=== PATIENT | female | born 1950 | race Caucasian/White ===

== ENCOUNTER 2023-11-15 22:06 | Outpatient (REF) | payer MEDICARE, SELFPAY | END 2023-11-15 22:07 | disposition home or self-care (01) | LOC: LBN 22:06 | PROVIDERS: Visit Provider Physician Assistant Medical | DX: J06.9 Acute upper respiratory infection, unspecified (principal) | CPT/HCPCS: 87070 ==

== ENCOUNTER 2024-01-17 09:21 | Outpatient (REF) | payer MEDICARE, SELFPAY ==
[2024-01-17 14:31] LABS: Abs Immature Grans 0.02 10^3/uL (0.0-0.06); Absolute Basophil Count 0.04 10^3/uL (0.0-0.2); Absolute Eosinophil Count 0.17 10^3/uL (0.0-0.7); Absolute Lymphocyte Count 1.87 10^3/uL (1.2-3.4); Absolute Monocyte Count 0.73 10^3/uL (0.1-0.8); Absolute Neutrophil Count 4.53 10^3/uL (1.2-6.7); Basophils % 0.5 %; Eosinophils % 2.3 %; HCT 41.9 % (36.0-46.0); Immature Grans % 0.3 %; Lymphocytes % 25.4 %; MCH 29.9 pg (27.0-33.0); MCHC 33.4 % (32.0-36.0); MCV 90 fL (80-95); MPV 10.1 fL (8.0-11.0); Monocytes % 9.9 %; Neutrophils % 61.6 %; Platelet Count 272 10^3/uL (130-400); RBC 4.68 10^6/uL (3.93-5.22); RDW 12.4 % (11.7-14.6); RDW-SD 40.3 fL; WBC 7.36 10^3/uL (4.4-10.8)
[2024-01-17 14:38] LABS: ALT 22 U/L (14-59); AST 19 U/L (15-37); Albumin 4.1 g/dL (3.4-5.0); Alkaline Phosphatase 113 U/L (46-116); Anion Gap 10.6 mmol/L (3-11); BUN 18 mg/dL (7-18); Bilirubin, Total 0.44 mg/dL (0.2-1.0); CO2 27.4 mmol/L (21.0-32.0); CREATININE 0.8 mg/dL (0.55-1.02); Calcium 9.4 mg/dL (8.5-10.1); Chloride 105 mmol/L (98-107); Creatine Kinase 79 U/L (26-192); Estimated GFR 78.72 (mL/min/1.73m2); Glucose 105 mg/dL (74-106); Magnesium 2.2 mg/dL (1.8-2.4); Potassium 3.8 mmol/L (3.5-5.1); Sodium 143 mmol/L (136-145); Total Protein 7.3 g/dL (6.4-8.2)
[2024-01-17 15:09] LABS: COVID-19 PCR Negative (Negative); Influenza A PCR Negative (Negative); Influenza B PCR Negative (Negative); RSV PCR Negative (Negative)
[2024-01-17 15:10] LABS: Source Nasopharynx
== END 2024-01-17 09:22 | disposition home or self-care (01) ==
LOC: NCHCN 09:21
PROVIDERS: Visit Provider Student in an Organized Health Care Education/Training Program
DX: R05.9 Cough, unspecified (principal)
CPT/HCPCS: 80053; 82550; 87637; 83735; 85025

== ENCOUNTER 2024-01-29 01:16 | Outpatient (CLI) | payer MEDICARE, SELFPAY ==
--- NOTE | 2024-01-29 | DI.RAD_ITS ---
Exam(s) XR LUMBAR SPINE COMPLETE EXAM: XR LUMBAR SPINE COMPLETE CLINICAL HISTORY: LOW BACK PAIN M54.50. TECHNIQUE: 2D digital imaging was performed of the lumbar spine. Five images were obtained. AP, la teral, right oblique, left oblique and L5-S1 spot views were obtained. COMPARISON: No exams were available for comparison FINDINGS: BONES: No fracture or destructive lesion. Endplate osteophytes are seen at multiple levels particular ly from L2-3 through L4-L5. No facet hypertrophy identified. DISKS: There is disc space narrowing at L3-L4 and L4-L5. ALIGNMENT: Lumbar spinal alignment is within normal limits. No spondylolysis or spondylolisthesis. SOFT TISSUE: Surgical clips are seen in the right upper quadrant of the abdomen. Atherosclerotic rajat cification is present. IMPRESSION: [id number] degenerative changes seen in the lumbar spine. DATA REPOSITORY: RADIATION DOSE DELIVERED:
== END 2024-01-29 01:36 ==
PROVIDERS: PCP Student in an Organized Health Care Education/Training Program; Visit Provider Student in an Organized Health Care Education/Training Program
DX: M51.360 Other intervertebral disc degeneration, lumbar region with discogenic back pain only (principal)
CPT/HCPCS: 72110

== ENCOUNTER 2024-02-27 00:10 | Outpatient (CLI) | payer MEDICARE, SELFPAY ==
--- NOTE | 2024-02-27 | DI.MAMMO_ITS ---
Exam(s) MAMMO SCREENING EXAM: MAMMO SCREENING CLINICAL HISTORY: Z12.39 Screening TECHNIQUE: Bilateral full field digital CC and MLO mammographic images were obtained with 3D tomosyn thesis and utilizing computer aided detection (CAD). COMPARISON: There are no priors for comparison. FINDINGS: Masses/Architectural Distortion: There is an asymmetric density in the upper central right breast on the mediolateral oblique view. It appears to lie in the lateral breast on the craniocaudad view. Microcalcifications: No suspicious pleomorphic-type are seen. Skin Thickening/Nipple Retraction: None. IMPRESSION: 1. Area of asymmetric density in the upper outer quadrant of the left breast. 2. This area should be further evaluated with a spot compression views. Ultrasound should also be ob tained at that time. BI-RADS Category 0 - Incomplete: Need additional imaging evaluation Breast Density - Category B - Scattered areas of fibroglandular density Breast density category C or D implies that the patient has dense breast tissue. Dense breast tissue is very common and is not abnormal but dense breast tissue can make it harder to find cancer on a ma mmogram. Also, dense breast tissue may increase their breast cancer risk. This information about the result of the mammogram report was provided to the patient to raise their awareness. Use this report when you speak with the patient about their risks for breast cancer, which includes their family hist ory. At that time, you may recommend for more screening tests (Ultrasound or MRI) as they might be us eful based on their risk. A negative radiographic report should not delay biopsy if a dominant or clinically suspicious mass is present. Up to ten percent of cancers are not identified on mammography. A negative report may reinforce clinical impression. Adenosis and dense breasts may obscure an underlying neoplasm. False positive reports average 6 to 10%. Patient will receive a letter notifying them of these results.
--- NOTE | 2024-02-27 | DI.DEXA_ITS ---
Exam(s) XR DEXA BONE DENSITY W/WO DORIS EXAM: XR DEXA BONE DENSITY W/WO DORIS CLINICAL HISTORY: Z78.0 Asymptomatic menopausal state TECHNIQUE: COMPARISON: CR XR LUMBAR SPINE COMPLETE from 01/29/2024 CR XR CHEST 2V PA LATERAL from 02/27/2024 FINDINGS: Lateral Spine Image: Unremarkable. No compression deformities identified. Left hip: Total T-Score: -2.2 Total Z-Score: -0.6 T- and Z-scores: Findings are consistent with osteopenia. Lumbar Spine: Total T-Score: 0.6 Total Z-Score: 2.8 T- and Z-scores: Within normal limits. Findings of osteoporosis are seen in the left forearm with a total T-score of -2.6 and a Z-score of - 0.4. IMPRESSION: Osteoporosis seen in the left forearm.
--- NOTE | 2024-02-27 12:43 | DI.RAD_ITS ---
Exam(s) XR CHEST 2V PA LATERAL EXAM: XR CHEST 2V PA LATERAL CLINICAL HISTORY: R05.9 Cough TECHNIQUE: 2D digital imaging was performed. Two views. COMPARISON: No exams were available for comparison FINDINGS: HEART: Normal size. Aorta: Not dilated. PULMONARY VASCULATURE: Normal. MEDIASTINUM: Unremarkable. LUNGS: Clear. PLEURAL SPACE: No pleural effusion or pneumothorax. BONE:Unremarkable for age. SOFT TISSUES: Unremarkable. IMPRESSION: No acute abnormality. DATA REPOSITORY: RADIATION DOSE DELIVERED:
== END 2024-02-27 00:30 ==
PROVIDERS: PCP Student in an Organized Health Care Education/Training Program; Visit Provider Student in an Organized Health Care Education/Training Program
DX: Z78.0 Asymptomatic menopausal state (principal); Z13.820 Encounter for screening for osteoporosis; R05.9 Cough, unspecified; M81.0 Age-related osteoporosis without current pathological fracture
CPT/HCPCS: 77063; 77067; 77080; 71046

== ENCOUNTER 2024-03-17 02:50 | Outpatient (CLI) | payer MEDICARE, SELFPAY ==
--- NOTE | 2024-03-17 | DI.US_ITS ---
Exam(s) MG MAMMO SCREEN CALL BACK UNI US BREAST RT LIMITED EXAM: MG MAMMO SCREEN CALL BACK UNI CLINICAL HISTORY: F/U MAMMO, UOQ ASYMMETRIC DENSITY RT BREAST,R92.8. TECHNIQUE: Craniocaudal and mediolateral oblique spot compression digital Mammography views of the r ightbreast with Tomosynthesis and right breast ultrasound. COMPARISON: MG MG MAMMO SCREENING from 02/27/2024 Patient's prior exams from [place] were unable to be retrieved. FINDINGS: Addendum to report 27 February 2024 the impression should read: 1. Area of asymmetric density in the upper outer quadrant of the RIGHT breast. Mammography/Tomosynthesis: Masses: Area of nodularity in the upper central right breast is somewhat less prominent on spot compr ession views. Architectural Distortion: None seen. Microcalcifictions: No suspicious pleomorphic-type are seen. Skin Thickening/Nipple Retraction: None. Right breast US: Echotexture: Normal appearance of the glandular tissue. Shadowing: No suspicious foci. Cyst: None. Solid lesions: None seen. Ductal dilation: None. IMPRESSION: 1. No evidence of malignancy is noted. Six-month follow-up right mammogram recommended. 2. The findings were discussed with the patient on the date of the examination. BI-RADS Category 3 - 6 month - Probably Benign Finding: Recommend follow-up mammography in 6 months 3 Breast Density - Category B - Scattered areas of fibroglandular density A negative radiographic report should not delay biopsy if a dominant or clinically suspicious mass is present. Up to ten percent of cancers are not identified on mammography. A negative report may reinforce clinical impression. Adenosis and dense breasts may obscure an underlying neoplasm. False positive reports average 6 to 10%. Patient will receive a letter notifying them of these results.
== END 2024-03-17 03:10 ==
LOC: DI 02:50
PROVIDERS: PCP Student in an Organized Health Care Education/Training Program; Visit Provider Student in an Organized Health Care Education/Training Program
DX: Z12.31 Encounter for screening mammogram for malignant neoplasm of breast (principal); R92.8 Other abnormal and inconclusive findings on diagnostic imaging of breast
CPT/HCPCS: 76642; 77063; 77067

== ENCOUNTER 2024-03-17 12:40 | Outpatient (CLI) | payer MEDICARE, SELFPAY ==
[2024-03-17 12:15] LABS: Calculated LDL 151 mg/dL (<100); Cholesterol 231 mg/dL (<200); HDL Cholesterol 64 mg/dL (40-60); TSH 2.49 uIU/mL (0.36-3.74); Triglyceride 80 mg/dL (<150); Vitamin B12 395 pg/mL (193-986); Vitamin D 25 Total 29.1 ng/mL (30-100)
== END 2024-03-17 12:41 | disposition home or self-care (01) ==
LOC: LBO 12:41
PROVIDERS: PCP Student in an Organized Health Care Education/Training Program; Visit Provider Student in an Organized Health Care Education/Training Program
DX: E78.5 Hyperlipidemia, unspecified (principal); F32.A Depression, unspecified; E55.9 Vitamin D deficiency, unspecified; K21.00 Gastro-esophageal reflux disease with esophagitis, without bleeding
CPT/HCPCS: 36415; 80061; 82306; 82607; 84443

== ENCOUNTER 2024-05-02 13:43 | Emergency (ER) | payer MEDICARE, SELFPAY ==
[2024-05-02 13:45] VITALS: BP 160/89; PULSE 130; RESP 16; TEMP 39.1; O2SAT 96
[2024-05-02 13:50] VITALS: BP 160/89; PULSE 130; RESP 16; TEMP 39.1; O2SAT 96
--- NOTE | 2024-05-02 14:15 | DI.RAD_ITS ---
Exam(s) XR CHEST 2V PA LATERAL EXAM: XR CHEST 2V PA LATERAL CLINICAL HISTORY: fever, cough, Flu + TECHNIQUE: 2D digital imaging was performed. Two views. COMPARISON: CR XR CHEST 2V PA LATERAL from 02/27/2024 FINDINGS: HEART: Normal size. Aorta: Not dilated. Mildly ectatic. PULMONARY VASCULATURE: Normal. MEDIASTINUM: Unremarkable. LUNGS: Clear. PLEURAL SPACE: No pleural effusion or pneumothorax. BONE:Unremarkable for age. SOFT TISSUES: Unremarkable. IMPRESSION: No acute abnormality. DATA REPOSITORY: RADIATION DOSE DELIVERED:
[2024-05-02 14:16] VITALS: PULSE 109; TEMP 39.4; O2SAT 91
--- NOTE | 2024-05-02 14:27 | ED.GENADUL_ITS ---
Discharge Plan Disposition Patient Disposition: Home Condition: Stable Discharge Details Clinical Impression: Influenza A Primary Care Provider: Andres Basurto ED Provider: Qing Zaragoza Home Meds and New Rx's Prescriptions: New oseltamivir [Tamiflu] 75 mg capsule 75 mg PO BID 5 Days Qty: 10 0RF No Action ascorbic acid (vitamin C) 250 mg tablet 250 mg PO DAILY atorvastatin 40 mg tablet 40 mg PO DAILY magnesium oxide 500 mg capsule 500 mg PO DAILY pantoprazole 40 mg tablet,delayed release (DR/EC) 40 mg PO DAILY promethazine 25 mg tablet 25 mg PO QID PRN zinc glycinate 20 mg capsule 20 mg PO DAILY Discharge Instructions Instructions: Flu, Adult ED Additional Instructions: Please take over the counter Tylenol and Ibuprofen back to back. Tylenol, total dose of 1000 mg every 6 hours Ibuprofen, total dose of 800 mg every 8 hours Please follow-up with your PCP, and return to the Emergency Department with any worsening symptoms or any other concerns. HPI General Date/Time Provider Initiated Documentation: 05/02/24 14:16 . HPI Narrative: The patient is a 73-year-old female with a history of hyperlipidemia, reflux who comes the emergency department for fever, body aches. The patient reports that she has had a cold on and off for the past few weeks and a few weeks ago had a bout of norovirus with vomiting which has since resolved. Reports the colds had never gone away but it was not till that she developed a fever as high as 102 degrees by oral thermometer. Reports has been taking [id number]-[id number] medication and last took NyQuil at 4:00 in the morning without relief. Reports her whole body hurts. 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 Admits that she has a nonproductive cough with this. Denies any chest pain or shortness of breath. Denies abdominal pain. Denies urinary symptoms. Denies taking any fever to see medication prior to emergency room arrival. Related Data Home Medications ?Medication ?Instructions ?Recorded ?Confirmed ascorbic acid (vitamin C) 250 mg 250 mg PO DAILY 03/03/24 05/02/24 tablet atorvastatin 40 mg tablet 40 mg PO DAILY 03/03/24 05/02/24 magnesium oxide 500 mg capsule 500 mg PO DAILY 03/03/24 05/02/24 pantoprazole 40 mg tablet,delayed 40 mg PO DAILY 03/03/24 05/02/24 release promethazine 25 mg tablet 25 mg PO QID PRN 03/03/24 05/02/24 zinc glycinate 20 mg capsule 20 mg PO DAILY 03/03/24 05/02/24 oseltamivir 75 mg capsule (Tamiflu) 75 mg PO BID 5 days #10 caps 05/02/24 Previous Rx's ?Medication ?Instructions ?Recorded oseltamivir 75 mg capsule (Tamiflu) 75 mg PO BID 5 days #10 caps 05/02/24 Allergies Allergy/AdvReac Type Severity Reaction Status Date / Time No Known Allergies Allergy Verified 05/02/24 14:08 General Stated Complaint: RespSymp SHANIQUA: 3 Review of Systems Narrative: Review of systems are negative except as mentioned. Exam Const General: comfortable and no acute distress Resp Effort & Inspection: normal respiratory effort and able to speak in complete sentences Auscultation: clear to auscultation bilaterally Cardio Rate: tachycardic Rhythm: other (Patient is tachycardic but regular.) Pulses: radial pulses present GI Palpation: soft and nontender Auscultation: normal bowel sounds Skin Other: Skin is warm and dry. Extrem Other: No lower extremity edema is noted bilaterally. Course Vital Signs Vital signs: Vital Signs Temperature 39.1 C H 05/02/24 13:45 Pulse 130 H 05/02/24 13:45 Respiratory Rate 16 05/02/24 13:45 Blood Pressure 160/89 H 05/02/24 13:45 Pulse Oximetry 96 05/02/24 13:45 Temperature 39.4 C H 05/02/24 14:16 Temperature Source Oral 05/02/24 14:16 Pulse 109 H 05/02/24 14:16 Respiratory Rate 16 05/02/24 13:50 Blood Pressure 160/89 H 05/02/24 13:50 Blood Pressure Position Sitting 05/02/24 13:50 Pulse Oximetry 91 L 05/02/24 14:16 Oxygen Delivery Method Room Air 05/02/24 14:16 Oxygen Flow Rate 0 05/02/24 14:16 Pain Level 7 05/02/24 13:50 Medical Decision Making Patient arrived febrile and tachycardic. Viral swab had been started. In the meantime of ordered oral Tylenol and ibuprofen and a chest x-ray. Patient reports that she feels overall improved. The patient's viral swab came back positive for influenza A. I spoke with the patient already setting Tamiflu and she would like to give this a try so she will get a first dose now. Chest x-ray is finally resulted this is negative for acute process. I updated the patient on x-ray results and plan for discharge. Her vital signs are improved. I will send a prescription for Tamiflu to her preferred pharmacy in the meantime she is encouraged to continue Tylenol and ibuprofen voqw-vy-uama for fever and body ache relief. I told her if she does get worse or develop any new or concerning symptoms to return to the emergency department immediately otherwise follow-up on an outpatient basis. I spoke with her regarding a work note as well which she declined. Imaging Data Radiologic Study: Imaging: X-Ray (Chest x-ray) Radiologist's impression: V-rad: no acute finding Quality:SDOH Health Related Social Needs: No Data to Display PFSH All Active Problems (Updated 05/02/24 @ 16:28 by Qing Zaragoza DO) Influenza A (Acute) Medical History (Updated 05/02/24 @ 16:28 by Qing Zaragoza DO) Weakness of both lower limbs Menopause present Nausea and vomiting Cough Cramps of lower extremity Low back pain Female stress incontinence Colitis GERD with esophagitis Essential hypertension Migraine without aura Migraine with aura Primary insomnia Hyperlipidemia Social History Smoking/Tobacco Use Status: Never Smoking risk assessment performed?: Yes Alcohol Intake: never Drug use: Never Substance use type: does not use
[2024-05-02] MEDS: Ibuprofen 800 MG TAB PO (14:29)
[2024-05-02] MEDS: Acetaminophen 500 MG TAB 1000 MG PO (14:29)
[2024-05-02 15:15] VITALS: BP 146/64; PULSE 92; RESP 16; TEMP 38.3; O2SAT 93
[2024-05-02 15:45] VITALS: BP 130/69; PULSE 91; TEMP 37.8; O2SAT 96
--- NOTE | 2024-05-02 16:24 | DI.VRAD_ITS ---
PROCEDURE INFORMATION: Exam: XR Chest Exam date and time: 05/02/2024 3:08 PM Age: 73 years old Clinical indication: Cough and fever; Fever, cough, flu + TECHNIQUE: Imaging protocol: Radiologic exam of the chest. Views: 2 views. COMPARISON: CR XR CHEST 2V PA LATERAL 02/27/2024 12:34 PM FINDINGS: Lungs: Unremarkable. No consolidation. Pleural spaces: Unremarkable. No pleural effusion. No pneumothorax. Heart/Mediastinum: Unremarkable. No cardiomegaly. Vasculature: There is unfolding of the thoracic aorta. Bones/joints: Mild degenerative disease of bilateral acromioclavicular joints. The thoracic spine demonstrates mild degenerative changes at multiple levels. Mild curvature of the lower thoracic spine convex to the left. IMPRESSION: No acute cardiopulmonary process. Dictated and Authenticated by: Surya Whitlock MD. Orderin Nik Longo MD
[2024-05-02 16:41] VITALS: BP 109/44; PULSE 94; RESP 20; O2SAT 95
== END 2024-05-02 17:05 | disposition home or self-care (01) ==
PROVIDERS: Emergency Provider Emergency Medicine; PCP Student in an Organized Health Care Education/Training Program
DX: J10.1 Influenza due to other identified influenza virus with other respiratory manifestations (principal); I10 Essential (primary) hypertension; E78.5 Hyperlipidemia, unspecified
CPT/HCPCS: 87426; 99284; 71046; 99283

== ENCOUNTER → 2024-07-07 09:39 | Outpatient (BNVA) | payer MEDICARE, SELFPAY | PROVIDERS: PCP Student in an Organized Health Care Education/Training Program; Visit Provider Psychiatry & Neurology Neurology | DX: R26.89 Other abnormalities of gait and mobility (principal); R29.2 Abnormal reflex; G43.409 Hemiplegic migraine, not intractable, without status migrainosus | CPT/HCPCS: 99215; G2212 ==

== ENCOUNTER 2024-07-31 00:21 | Outpatient (CLI) | payer MEDICARE, SELFPAY ==
--- NOTE | 2024-07-31 07:15 | DI.MRI_ITS ---
Exam(s) MR CERVICAL SPINE WO EXAM: MR CERVICAL SPINE WO CLINICAL HISTORY: ? myelopathy,BALANCE DISORDER,BABINSKI SIGN POSITIVE LT FOOT TECHNIQUE: Multiplanar multisequence MRI of the cervical spine was performed without intravenous con trast. COMPARISON: No exams were available for comparison FINDINGS: CERVICOMEDULLARY JUNCTION: Intact with no evidence of cerebellar tonsillar ectopia. No obvious abnor mality of the odontoid process. No evidence of Chiari 1 malformation. CERVICAL SPINAL CORD: There is no abnormal signal in the cervical spinal cord and no evidence of foca l cord atrophy nor focal cord swelling. OSSEOUS:There are no cervical fractures evident. No significant osseous lesions in the cervical vert ebrae. INDIVIDUAL LEVELS: C2-3: Relatively preserved disc height. No disc herniation or central canal stenosis. There are deg enerative changes in the left facet joint; less so in the right facet joint. There is, however, no s ignificant foraminal stenosis at this level C3-4: This level exhibits chronic moderate disc space narrowing. Posteriorly there is asymmetric rig ht-sided annular bulging no prominent disc herniation. There is some flattening of the thecal sac on the right side at this level.. Central canal dimensions are lower normal. Both facet joints appear relatively unremarkable at this level. There is Luschka joint osteophyte on the right side with mil d right-sided foraminal stenosis. There is no significant foraminal stenosis on the left side. C4-5: This level exhibits moderate disc space narrowing. Anterior osseous lipping. Posteriorly ther e is a kvqzkfi-yqxrl-mjdsk disc protrusion which extends posteriorly 3 mm and is approximately 14 mm wide, this disc protrusion significantly indenting the anterior right side of the thecal sac as well as contacting the spinal cord at this level. Left facet joint at this level appears un remarkable. Moderate degenerative changes in the right facet joint. There is significant right-sided foraminal s tenosis. No evidence of foraminal stenosis on the opposite-left side. C5-6: This level exhibits chronic advanced disc space narrowing and anterior and posterior osseous li pping. Posteriorly there is broad degenerative osseous ridging which effaces the anterior thecal sac and contacts the cord and results in significant moderate-severe central canal stenosis with AP ana l measurement of only 5 mm at this level. There does not appear to be abnormal signal in the mildly compressed spinal cord at this level. There are bilateral Luschka joint osteophytes as well as moder ate degenerative changes in both facet joints. There is mild-moderate bilateral foraminal stenosis a t this level. C6-7: This level exhibits moderate disc space narrowing. Posteriorly there is also some osteophytic ridging and bilateral Luschka joint osteophytes but without a dominant disc herniation. There is eff acement of the thecal sac by the osteophytic ridging. The AP canal measurement at this level is 8 mm with mild-moderate central canal stenosis. No abnormal signal in the cord. Moderate facet joint de generative changes. Mild-moderate bilateral foraminal stenosis. C7-T1: Normal disc height. There is mild anterolisthesis of C7 upon T1 which is related to facet art hropathy. There is, however, no disc herniation or central canal stenosis at this level. Degenerati ve change in the facet joints. There is, however, no significant foraminal stenosis on either side a t this level. IMPRESSION: 1. Multilevel chronic degenerative disc disease and multilevel facet arthropathy as described per ind ividual level above. 2. There is a jzmdaxy-swhwg-ufuby disc protrusion at C4-5 level which indents the anterior right side of the thecal sac at this level. Only mild central canal stenosis at this level. Also right-sided foraminal stenosis at this level. 3. There is moderate-severe central canal stenosis at C5-6 level and mild-moderate central canal sten osis at the C6-7 level. 4. Multilevel asymmetric facet arthrosis and asymmetric foraminal stenosis as described above. DATA REPOSITORY:
--- NOTE | 2024-07-31 07:15 | DI.MRI_ITS ---
Exam(s) MR BRAIN WO EXAM: MR BRAIN WO CLINICAL HISTORY: imbalance,BABINSKI SIGN POSITIVE LT FOOT, BALANCE DISORDER TECHNIQUE: Multiplanar multisequence MRI of the brain was performed. COMPARISON: MR MR CERVICAL SPINE WO from 07/31/2024 FINDINGS: CEREBRAL PARENCHYMA: There is no evidence of intracranial hemorrhage, mass effect, or shift of midline structures. There are no extra-axial fluid collections. Ventricles are not enlarged or shifted. There is no significant focal signal abnormality in the cerebellar hemispheres nor within the vivian, m idbrain, and thalami. There is abundant bilateral signal abnormality in the Kiera in supra ventricular white matter consiste nt with chronic small vessel disease and not associated with hemorrhage nor restricted diffusion on D WI imaging. SWI reveals no microhemorrhages. PITUITARY GLAND: No mass nor parasellar abnormality. No obvious abnormality in the cavernous sinuses. FLOW VOIDS: The expected flow void are noted. No evidence of obvious aneurysm nor obvious vascular ma lformation. PARANASAL SINUSES: There is mucosal thickening and fluid level in the right maxillary sinus consisten t with acute sinusitis. Some mucosal thickening and fluid is noted in adjacent right-sided ethmoidal air cells. Similar findings are not seen in left maxillary sinus nor in the sphenoid sinuses. The left frontal sinuses clear. There is, however, an normal finding in the lateral aspect of the right frontal sinus which is centrally T1 hyperintense and T2 hypointense and measures 1 cm wide by 1 cm AP by 1.9 cm craniocaudal. There appears to be adjacent CIS smooth erosion of the skull at this level. This is just above the right orbit but does not appear to invade into the right superior orbit cavi ty ORBITS: No obvious findings. IMPRESSION: 1. There is abundant bilateral periventricular signal abnormality consistent with chronic small vesse l disease. No evidence of acute infarct nor intracranial hemorrhage. 2. Findings of acute sinusitis in the right maxillary sinus including fluid level and mucosal thicken ing therein. 3. There is an atypical appearing structure in the lateral aspect of the right frontal sinus measurin g 1.0 x 1.0 x 1.9 cm and not having typical appearance of a post inflammatory retention cyst. This i s not outwardly expansile but there does appear to be some smooth erosion of the skull at this level. Recommend further dedicated imaging through this region, starting with CT scan from above the level of the frontal sinuses to below the level of the maxillary sinuses. DATA REPOSITORY:
== END 2024-07-31 00:41 ==
LOC: DI 00:22
PROVIDERS: PCP Student in an Organized Health Care Education/Training Program; Visit Provider Psychiatry & Neurology Neurology
DX: M48.02 Spinal stenosis, cervical region (principal); I67.82 Cerebral ischemia
CPT/HCPCS: 70551; 72141

== ENCOUNTER 2024-08-11 01:33 | Outpatient (CLI) | payer MEDICARE, SELFPAY ==
--- NOTE | 2024-08-11 06:15 | DI.CT_ITS ---
Exam(s) CT SINUS WO EXAM: CT SINUS WO CLINICAL HISTORY: abnormality seen on MRI brain,sinus disease,j34.9,acute sinusitis. TECHNIQUE: Imaging Protocol: Axial computed tomography images with coronal and sagittal reformatted images were created and reviewed. No IV Contrast COMPARISON: No exams were available for comparison FINDINGS: MAXILLARY SINUSES: There is some mucosal thickening in the floor and medial wall the of the right maxillary sinus and a small amount of fluid noted in this sinus.. Left maxillary sinus is clear. Ostiomeatal units are pa tent. There is no bone dehiscence. OSTIOMEATAL UNITS: Patent bilaterally ETHMOIDAL AIR CELLS: Well aerated. No mucosal thickening nor fluid levels. SPHENOID SINUSES: Well aerated. No mucosal thickening nor fluid levels. FRONTAL SINUSES: There is localized opacification of the far lateral right side of the right frontal sinus. Has appearance of a cyst. Remainder of the frontal sinuses are clear. NASAL SEPTUM AND TURBINATES:There is a left-sided nasal septal spur which contacts the inferior left turbinate at. There is are a vázquez of the right middle turbinate noted, nonobstructive.. MASTOID AIR CELLS: Well aerated. No effusions. Also no fluid nor masses in the earlier cavities. IMPRESSION: 1. Mild sinusitis of the right maxillary sinus. There is no opacification of the ipsilateral ostiom eatal unit. 2. The far lateral right side of the right frontal sinus is opacified, this just above the superior wall of the orbit. This exhibits a sclerotic rim and internal density measurements averaging 13 HU/f luid. Difficult to differentiate here between focal sinusitis versus is benign mildly expansile cyst ic lesion. This measures 1.5 cm craniocaudal by 1.3 cm wide by 1.0 cm AP. There is no dehiscence of the outer and inner tables of the skull at this level. There is no ipsilateral orbital involvement. RADIATION DOSE DELIVERED: 157.32mGy.cm Total DLP DATA REPOSITORY: All CT scans at this facility are submitted to the National Radiology Data Registry (NRDR) Dose Index Registry (DIR) with the [employer] (A[employer]). RADIATION OPTIMIZATION: All CT scans at this facility use at least one of these dose optimization te chniques: automated exposure control; mA and/or kV adjustment per patient size (includes targeted exa ms where dose is matched to clinical indication); or iterative reconstruction.
== END 2024-08-11 01:53 ==
LOC: DI 01:34
PROVIDERS: PCP Student in an Organized Health Care Education/Training Program; Visit Provider Psychiatry & Neurology Neurology
DX: J01.00 Acute maxillary sinusitis, unspecified (principal)
CPT/HCPCS: 70486

== ENCOUNTER 2024-08-13 06:56 | Inpatient (IN) | payer OTHER, SELFPAY ==
[2024-08-13] VITALS (25 sets, daily range): BP systolic 90–163; BP diastolic 44–88; PULSE 62–76; RESP 7–24; TEMP 36.1–36.9; O2SAT 91–99; BMI 23.7
--- NOTE | 2024-08-13 07:00 | DI.CT_ITS ---
Exam(s) CT HEAD CERVICAL SPINE WO EXAM: CT HEAD CERVICAL SPINE WO CLINICAL HISTORY: fall, pain. TECHNIQUE: Imaging Protocol: Axial computed tomography images with coronal and sagittal reformatted images were created and reviewed COMPARISON: MR MR BRAIN WO from 07/31/[address] SINUS WO from 08/11/2024 FINDINGS: BRAIN: There are no skull fractures. Mild right maxillary sinusitis again noted. Far right lateral side of the right frontal sinus is also again noted to be opacified, this just above the superior wall of the right orbit. This has a rounded appearance with peripherally sclerotic border and may be a cystic bone lesion as opposed to simple sinusitis. The remainder of the frontal sinuses are clear. Mastoid air cells are clear. There is no evidence of intracranial hemorrhage, mass effect, or shift of midline structures. There are no extra-axial fluid collections. The ventricles are not enlarged or shifted and there is no blood within the ventricular system nor within the basal cisterns. There is abundant bilateral periventricular hypodensity consistent with chronic small vessel disease. There is also a nonhemorrhagic lacunar infarct in the right periventricular white matter measuring 4 mm, age indeterminate. CERVICAL SPINE: There is no evidence of fracture nor listhesis. No significant prevertebral soft tissue swelling. There is multilevel disc space narrowing involving all levels in the cervical spine and there is mild reversal of the normal curvature. There is some facet arthropathy, most evident at the C2-3 level on the left side. There are no cervical ribs. No osseous lesions. There is no significant facet joint malalignment. No significant osseous lesions evident. IMPRESSION: No evidence of intracranial hemorrhage. Abundant periventricular chronic small vessel disease. Also small age-indeterminate lacunar infarct in the right periventricular white matter. Again noted is the previously described lucency in the for this right compartment of the right frontal sinus. This is either localized sinusitis or a cystic benign-appearing bone lesion in the sinus. There is also mild right maxillary sinusitis again noted. No evidence of cervical spine fracture, malalignment, nor acute compromise of the cervical spinal canal. Chronic multilevel degenerative disc disease. Report called by myself to ER provider 08/13/2024 at 8:17 a.m. RADIATION DOSE DELIVERED: 1,183.77mGy.cm Total DLP DATA REPOSITORY: All CT scans at this facility are submitted to the National Radiology Data Registry (NRDR) Dose Index Registry (DIR) with the [employer] (ACR). RADIATION OPTIMIZATION: All CT scans at this facility use at least one of these dose optimization techniques: automated exposure control; mA and/or kV adjustment per patient size (includes targeted exams where dose is matched to clinical indication); or iterative reconstruction.
--- NOTE | 2024-08-13 07:12 | ED.GENADUL_ITS ---
Discharge Plan Disposition Patient Disposition: Admit to [facility] Condition: Stable Discharge Details Clinical Impression: Fracture of femoral neck, left, Fall Primary Care Provider: Andres Basurto ED Provider: Igor Sue Home Meds and New Rx's Prescriptions: No Action ascorbic acid (vitamin C) 250 mg tablet 250 mg PO DAILY atorvastatin 40 mg tablet 40 mg PO DAILY magnesium oxide 500 mg capsule 500 mg PO DAILY pantoprazole 40 mg tablet,delayed release (DR/EC) 40 mg PO DAILY promethazine 25 mg tablet 25 mg PO QID PRN zinc glycinate 20 mg capsule 20 mg PO DAILY HPI General Date/Time Provider Initiated Documentation: 08/13/24 06:58 . Limitations to Documentation: no limitations . Information obtained by: patient . History of Present Illness 74 year old F presents to the emergency department with the chief complaint of left hip pain s/p trip and fall, described as severe, Quality is described as sharp, Patient reports no radiation. Patient started experiencing this hour(s) (1) and it has been constant. Rest improves symptom(s), Movement worsens symptoms . Patient notes denies chest pain and shortness of breath. Patient did receive the following treatments prior to arrival, none Related Data Home Medications Medication Instructions Recorded Confirmed ascorbic acid (vitamin C) 250 mg 250 mg PO DAILY 03/0308/13/24 tablet atorvastatin 40 mg tablet 40 mg PO DAILY 03/03/2408/02 magnesium oxide 500 mg capsule 500 mg PO DAILY 4 08/13/24 pantoprazole 40 mg tablet,delayed 40 mg PO DAILY 03/0308/13/24 release promethazine 25 mg tablet 25 mg PO QID PRN 03/03/24 zinc glycinate 20 mg capsule 20 mg PO DAILY 03/03/24 0 08/13/24 Allergies Allergy/AdvReac Type Severity Reaction Status Date / Time No Known Allergies Allergy Verified 08/13/24 07:05 General Stated Complaint: Orthopedic SHANIQUA: 3 Review of Systems All systems reviewed & are unremarkable except as noted in HPI and below Constitutional Constitutional: Denies chills and Denies fever(s) Cardiovascular Cardiovascular: Denies chest pain and Denies dyspnea Respiratory Respiratory: Denies dyspnea Gastrointestinal Gastrointestinal: Denies abdominal pain, Denies nausea and Denies vomiting Musculoskeletal Musculoskeletal: Reports other (left hip pain) Exam Const General: no acute distress Orientation: alert [facility] Head: normal to inspection Ears: external ears normal General nose exam: external nose normal Mouth: moist mucous membranes Eyes General: appearance normal, both eyes and all related structures Neck Neck: normal visual inspection Resp Effort & Inspection: normal respiratory effort and able to speak in complete sentences Cardio Jugular venous pressure: no JVD Rate: regular rate GI Palpation: soft and nontender Skin General skin exam: no rashes or lesions noted Neuro General: patient alert and patient oriented x3 Extrem General: capillary refill normal, no cyanosis and no edema Psych Mental Status: mental status grossly normal Course Vital Signs Vital signs: Vital Signs Temperature 36.9 C 08/13/24 07:00 Pulse 72 08/13/24 07:00 Respiratory Rate 18 08/13/24 07:00 Blood Pressure 140/75 08/13/24 07:00 Pulse Oximetry 98 08/13/24 07:00 Temperature 36.9 C 08/13/24 07:00 Temperature Source Oral 08/13/24 07:00 Pulse 72 08/13/24 07:00 Respiratory Rate 18 08/13/24 07:00 Blood Pressure 140/75 08/13/24 07:00 Blood Pressure Position Supine 08/13/24 07:00 Pulse Oximetry 98 08/13/24 07:00 Oxygen Delivery Method Room Air 08/13/24 07:00 Oxygen Flow Rate 0 08/13/24 07:00 Pain Level 8 08/13/24 07:00 Comment Increases when standing up 08/13/24 07:00 Medical Decision Making 74-year-old female comes in after 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 She is not sure if she hit her head or not. She denies any preceding symptoms of the fall such as dizziness, lightheadedness, chest pain or difficulty breathing. She has pain over the left lateral hip and is not able to move the hip due to pain. She has intact distal sensation and pulses. She denies any back pain, chest pain, abdominal pain. I suspect hip fracture, will obtain x-rays and basic labs (not sure if she hit her head will obtain CT head and C-spine. The fall was mechanical so I doubt entities such as ACS or arrhythmia. Patient stable. Does have a left hip fracture. CT head and C-spine negative for acute findings, has a likely cystic lesion in her sinuses and she denies any sinusitis symptoms. Will check to see if orthopedics is available to repair this if not we will have to transfer her. Discussed case with Dr. [place] and Dr. Reeves, they advised that we will need a CT to determine surgical planning but will be able to fix her today or tomorrow depending on CT results. Will discuss with hospitalist about admission Differential Diagnosis Differential Diagnosis: Fracture, contusion Lab Data Lab results reviewed: Yes I reviewed the patient's lab results. PFSH All Active Problems (Updated 08/13/24 @ 09:19 by Igor Sue MD) Fall (Acute) Fracture of femoral neck, left (Acute 08/13/24) Sinus disease (Acute) Hemiplegic migraine (Acute) Babinski sign positive in left foot (Acute) Balance disorder (Acute) Medical History Menopause present Cramps of lower extremity Low back pain Female stress incontinence Colitis GERD with esophagitis Essential hypertension Migraine without aura Migraine with aura Primary insomnia Hyperlipidemia Surgical History S/P hysterectomy S/P cholecystectomy Family History Father Diabetes Mother Heart disease Sister Heart disease Social History Smoking/Tobacco Use Status: Never Smoking risk assessment performed?: Yes Alcohol Intake: never Drug use: Never Substance use type: does not use Household members: none Number of Children: 2 current occupation: Childcare provider What is your relationship status?: Panel score (0-1 are the most socially isolated patients): 0
[2024-08-13 07:29] LABS: Abs Immature Grans 0.05 10^3/uL (0.0-0.06); Absolute Basophil Count 0.02 10^3/uL (0.0-0.2); Absolute Eosinophil Count 0.11 10^3/uL (0.0-0.7); Absolute Lymphocyte Count 1.41 10^3/uL (1.2-3.4); Absolute Monocyte Count 0.49 10^3/uL (0.1-0.8); Absolute Neutrophil Count 5.21 10^3/uL (1.2-6.7); Basophils % 0.3 %; Eosinophils % 1.5 %; HCT 40.5 % (36.0-46.0); HGB 13.4 g/dL (11.2-15.7); Immature Grans % 0.7 %; Lymphocytes % 19.3 %; MCH 29.1 pg (27.0-33.0); MCHC 33.1 % (32.0-36.0); MCV 88 fL (80-95); MPV 9.6 fL (8.0-11.0); Monocytes % 6.7 %; Neutrophils % 71.5 %; Platelet Count 209 10^3/uL (130-400); RBC 4.61 10^6/uL (3.93-5.22); RDW 13.1 % (11.7-14.6); WBC 7.29 10^3/uL (4.4-10.8)
[2024-08-13] MEDS: Ketorolac 15 MG/ML VIAL IVP (07:36)
[2024-08-13] MEDS: Normal Saline Flush 10 ML SYR IVP ×2 (07:37→20:20)
[2024-08-13] MEDS: HYDROmorphone 2 MG/ML SYR 0.5 MG IVP (07:37)
[2024-08-13] MEDS: ACETAMINOPHEN 1,000 MG/100 ML BAG 400 MG IVPB (07:42)
[2024-08-13 08:07] LABS: ALT 30 U/L (14-59); AST 20 U/L (15-37); Albumin 3.8 g/dL (3.4-5.0); Alkaline Phosphatase 107 U/L (46-116); Anion Gap 8.3 mmol/L (3-11); BUN 18 mg/dL (7-18); Bilirubin, Total 0.6 mg/dL (0.2-1.0); CO2 27.7 mmol/L (21.0-32.0); Calcium 8.9 mg/dL (8.5-10.1); Chloride 105 mmol/L (98-107); Estimated GFR 78.24 (mL/min/1.73m2); Glucose 143 mg/dL (74-106); Potassium 3.4 mmol/L (3.5-5.1); Sodium 141 mmol/L (136-145); Total Protein 6.8 g/dL (6.4-8.2)
--- NOTE | 2024-08-13 08:29 | DI.RAD_ITS ---
Exam(s) XR FEMUR LT EXAM: XR FEMUR LT CLINICAL HISTORY: fall, left hip pain. TECHNIQUE: 2D digital imaging was performed. COMPARISON: No exams were available for comparison FINDINGS: 3 views There is a mildly impacted subcapital fracture of the left femoral neck. No osseous lesions. Remainder of the femur is unremarkable. There are significant osteoarthritic degenerative changes in the left knee. IMPRESSION: Subcapital fracture of the left femoral neck. Moderate osteoarthritic degenerative changes in the knee. DATA REPOSITORY: RADIATION DOSE DELIVERED:
--- NOTE | 2024-08-13 08:29 | DI.RAD_ITS ---
Exam(s) XR PELVIS AP EXAM: XR PELVIS AP CLINICAL HISTORY: fall, left hip pain. TECHNIQUE: 2D digital imaging was performed. COMPARISON: CR XR FEMUR LT from 08/13/2024 FINDINGS: Single AP view There is a subcapital fracture of the left hip. Mild degenerative changes. There are advanced osteoarthritic degenerative changes in the opposite-right hip. There is no right hip fracture. No additional pelvic fractures. IMPRESSION: Left hip subcapital femoral neck fracture. DATA REPOSITORY: RADIATION DOSE DELIVERED:
--- NOTE | 2024-08-13 08:45 | DI.CT_ITS ---
Exam(s) CT PELVIC WO EXAM: CT PELVIC WO CLINICAL HISTORY: left hip fx, surgical planning. TECHNIQUE: Imaging Protocol: Axial computed tomography images with coronal and sagittal reformatted images were created and reviewed CONTRAST MATERIAL: Intravenous: none Oral: None COMPARISON: No exams were available for comparison FINDING: PELVIS: OSSEOUS: There is minimally impacted subcapital femoral neck fracture of theleft hip. There are mild degenerative changes in the left hip. There are no fractures in the opposite-right hip but there are danced degenerative changes in the right hip. There are no acetabular fractures. There are no other pelvic fractures nor evidence of sacral fracture. SI joints appear unremarkable.No evidence of significant intrapelvic hematoma ANTERIOR ABDOMINAL WALL/GI:Martinez catheter noted in the urinary bladder. No free fluid nor hematomas in the pelvis. No acute inflammatory process in the pelvis. There is sigmoid diverticulosis without evidence of diverticulitis. LYMPH NODES: There is no intrapelvic nor inguinal adenopathy. URINARY BLADDER: Catheter in the bladder. REPRODUCTIVE: Previous hysterectomy.. IMPRESSION: 1. There is a minimally impacted subcapital femoral neck fracture of the left hip. No other fractures identified. No acetabular fracture. No intrapelvic hematomas. 2. Advanced osteoarthritic degenerative changes in the opposite-right hip. Report called to ER 08/13/2022 at 9:26 a.m. RADIATION DOSE DELIVERED: 235.28mGy.cm Total DLP DATA REPOSITORY: All CT scans at this facility are submitted to the National Radiology Data Registry (NRDR) Dose Index Registry (DIR) with the [employer] (ACR). RADIATION OPTIMIZATION: All CT scans at this facility use at least one of these dose optimization techniques: automated exposure control; mA and/or kV adjustment per patient size (includes targeted exams where dose is matched to clinical indication); or iterative reconstruction.
--- NOTE | 2024-08-13 09:03 | W.ORTHOCONSU ---
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 Nothing to eat or drink since last night. Denies any pre-existing left hip problems at all. On limited ambulator community without any assist device. Denies any contralateral right hip problems at all either. No major medical problems. Does have migraines. Review of systems positive for balance and gait issues with somewhat frequent falls unknown cause not really pending any workup. No diabetes, no tobacco use, no smoking. Patient resting hospital bed quite pleasant and comfortable. Indicates point deeply about the left hip, not vigorously tested. No bruising or edema yet. Completely sensory intact throughout the left lower extremity, demonstrate intact motor foot ankle toes without issue. Attempted right hip exam causes discomfort in the left hip so not more vigorously tested, but likely some stiffness here due to arthrosis. Breathing comfortably room air Clean Martinez in place No other injuries No signs or symptoms of a problem Pelvis left hip femur x-rays and CT scan reviewed carefully: Complete subcapital femoral neck fracture with mild valgus angulation, no displacement or angulation in the sagittal plane at all. CT confirms some lateral comminution, but otherwise excellent alignment in the sagittal plane with no posterior comminution either. No significant left hip arthrosis. Contralateral side obvious significant right hip arthrosis. Discussed thoroughly with patient. Reviewed the treatment options for this type of fracture in particular repair with internal fixation versus hip replacement. Also reviewed with my partner Dr. Reeves who performs the anterior total hip arthroplasty here. The patient is overall quite healthy and well. She is active without any pre-existing left hip problems. Although the fracture is complete, the alignment is quite good and there are no poor prognostic factors like angulation in the sagittal plane or posterior comminution. She understands there is about a 20% risk of a problem with internal fixation surgery including femoral neck shortening, delayed–nonunion, and osteonecrosis, and that these problems are usually treated with more surgery: Total hip replacement. We reviewed how a total hip replacement could be done now, which avoids these complications, but has its own different complications like prosthetic joint infection, periprosthetic fracture, and dislocation . Patient preference is for attempted repair and preserving her hip. Plan on protected weightbearing with crutches or walker for about 6-8 weeks postop. She lives home alone still working at daycare, but has help support in the community and her son lives nearby. Likely 1 night postoperative in the hospital with physical therapy crutch/walker training tomorrow and then discharge home with any services needed following up with me in about 1.5 weeks. Might need to fully assess her balance/gait issues that have been leading to falls depending on her physical therapy evaluation. Hold chemical DVT prophylaxis, n.p.o., maintain Martinez, and IV fluid pending surgery soon. Decision to proceed with left hip internal fixation (with cannulated screws) later today The risks, benefits, and alternatives were thoroughly discussed. Patient was counseled regarding pain management, expected postoperative course, and recovery timeline. All questions were answered. Informed consent reviewed and paperwork will be completed in the OR holding area Patient agrees and understands the treatment plan Reviewed with the ER and hospitalist doctors [facility], [facility] All Active Problems (Updated 08/13/24 @ 09:19 by Igor Sue MD) Fall (Acute) Fracture of femoral neck, left (Acute 08/13/24) Sinus disease (Acute) Hemiplegic migraine (Acute) Babinski sign positive in left foot (Acute) Balance disorder (Acute) Medical History Menopause present Cramps of lower extremity Low back pain Female stress incontinence Colitis GERD with esophagitis Essential hypertension Migraine without aura Migraine with aura Primary insomnia Hyperlipidemia Surgical History S/P hysterectomy S/P cholecystectomy Family History Father Diabetes Mother Heart disease Sister Heart disease Social History Smoking/Tobacco Use Status: Never Smoking risk assessment performed?: Yes Alcohol Intake: never Drug use: Never Substance use type: does not use Household members: none Number of Children: 2 current occupation: Childcare provider What is your relationship status?: Panel score (0-1 are the most socially isolated patients): 0 Results Last Vital Signs Temp 98.5 F 08/13/24 07:00 Pulse 76 08/13/24 09:01 Resp 16 08/13/24 09:01 BP 160/86 H 08/13/24 09:01 Pulse Ox 98 08/13/24 09:01 Labs 08/13/24 07:25 08/13/24 07:25 Labs: Laboratory Results - last 24 hr 08/13/24 07:25 WBC 7.29 RBC 4.61 Hgb 13.4 Hct 40.5 MCV 88 MCH 29.1 MCHC 33.1 RDW 13.1 Plt Count 209 MPV 9.6 Immature Gran % 0.7 Neutrophils % 71.5 Lymphocytes % 19.3 Monocytes % 6.7 Eosinophils % 1.5 Basophils % 0.3 Nucleated RBC % 0.0 Absolute Neutrophils 5.21 Absolute Lymphocytes 1.41 Absolute Monocytes 0.49 Absolute Eosinophils 0.11 Absolute Basophils 0.02 Sodium 141 Potassium 3.4 L Chloride 105 Carbon Dioxide 27.7 Anion Gap 8.3 BUN 18 Creatinine 0.8 Est GFR (CKD-EPI 2020) 78.24 Glucose 143 H Calcium 8.9 Magnesium 2.0 Total Bilirubin 0.6 AST 20 ALT 30 Alkaline Phosphatase 107 Total Protein 6.8 Albumin 3.8
--- NOTE | 2024-08-13 09:04 | W.PM.HP.N ---
Date of service: 08/13/24 Time of Service: 09:05 Assessment and Plan Assessment and plan (1) Fracture of femoral neck, left: Status: Acute Assessment and plan: - As seen on x-ray - Obtaining CT of hip as per orthopedic surgery recommendations - patient is now POD#0 - As needed Tylenol and 0.5 mg IV Dilaudid for pain (2) GERD with esophagitis: Assessment and plan: -continue home PPI (3) Essential hypertension: Assessment and plan: -continue home antihypertensive regimen History of Present Illness History of Present Illness Chief Complaint: Left hip pain Narrative: 74-year-old female with a past medical history of GERD and hyperlipidemia presents to the emergency department after experiencing a fall on her left hip. 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 She experienced immediate pain was unable to bear weight on her left leg prompting her to present to the emergency department. She denies any preceding lightheadedness, dizziness, chest pain. In the emergency department the patient was noted to have normal vital signs, normal CBC, normal CMP but did have significant pain in her left hip and with imaging confirmed the presence of a left subcapital femoral neck fracture. Case was discussed with on-call orthopedics who recommended CT of the left hip and admitting for surgical repair either later today or tomorrow 08/14/2024. At which time emergency room provider paged hospitalist for admission for patient with left hip fracture. Review of Systems All systems reviewed & are unremarkable except as noted in HPI and below PFSH All Active Problems (Updated 08/13/24 @ 09:19 by Igor Sue MD) Fall (Acute) Fracture of femoral neck, left (Acute 08/13/24) Sinus disease (Acute) Hemiplegic migraine (Acute) Babinski sign positive in left foot (Acute) Balance disorder (Acute) Medical History Menopause present Cramps of lower extremity Low back pain Female stress incontinence Colitis GERD with esophagitis Essential hypertension Migraine without aura Migraine with aura Primary insomnia Hyperlipidemia Surgical History S/P hysterectomy S/P cholecystectomy Family History Father Diabetes Mother Heart disease Sister Heart disease Social History Smoking/Tobacco Use Status: Never Smoking risk assessment performed?: Yes Alcohol Intake: never Drug use: Never Substance use type: does not use Household members: none Housing: house Number of Children: 2 current occupation: Childcare provider What is your relationship status?: Panel score (0-1 are the most socially isolated patients): 0 Meds Allergies and Home Medications Allergies Allergy/AdvReac Type Severity Reaction Status Date / Time No Known Allergies Allergy Verified 08/13/24 07:05 Home Medications Medication Instructions Recorded Confirmed Type ascorbic acid (vitamin C) 250 mg 250 mg PO DAILY 03/03/24 08/13/24 History tablet atorvastatin 40 mg tablet 40 mg PO DAILY 03/03/24 08/13/24 History magnesium oxide 500 mg capsule 500 mg PO DAILY 03/03/24 08/13/24 History pantoprazole 40 mg tablet,delayed 40 mg PO DAILY 03/03/24 08/13/24 History release promethazine 25 mg tablet 25 mg PO QID PRN 03/03/24 08/13/24 History zinc glycinate 20 mg capsule 20 mg PO DAILY 03/03/24 08/13/24 History Exam Narrative Exam Narrative: well appearing female laying in bed in no acute distress, AOx4, heart RRR, lungs CTAB, abdomen soft, non-tender, non-distended, bandage over left hip without surrounding erythema or drainage Results Labs 08/13/24 07:25 08/13/24 07:25 Labs: Laboratory Results - last 24 hr 08/13/24 07:25 WBC 7.29 RBC 4.61 Hgb 13.4 Hct 40.5 MCV 88 MCH 29.1 MCHC 33.1 RDW 13.1 Plt Count 209 MPV 9.6 Immature Gran % 0.7 Neutrophils % 71.5 Lymphocytes % 19.3 Monocytes % 6.7 Eosinophils % 1.5 Basophils % 0.3 Nucleated RBC % 0.0 Absolute Neutrophils 5.21 Absolute Lymphocytes 1.41 Absolute Monocytes 0.49 Absolute Eosinophils 0.11 Absolute Basophils 0.02 Sodium 141 Potassium 3.4 L Chloride 105 Carbon Dioxide 27.7 Anion Gap 8.3 BUN 18 Creatinine 0.8 Est GFR (CKD-EPI 2020) 78.24 Glucose 143 H Calcium 8.9 Magnesium 2.0 Total Bilirubin 0.6 AST 20 ALT 30 Alkaline Phosphatase 107 Total Protein 6.8 Albumin 3.8 Last Vital Signs Temp 98.5 F 08/13/24 07:00 Pulse 76 08/13/24 09:01 Resp 16 08/13/24 09:01 BP 160/86 H 08/13/24 09:01 Pulse Ox 98 08/13/24 09:01 Time Spent Time spent with Patient: >75 minutes Time was spent: preparing to see the patient(eg.review tests), obtaining and/or reviewing separately otained hiistory, ordering medications,tests, procedures, referring, communicating with other health career and guidance counselor, indepentently interpreting results, counseling the patient and care coordination
[2024-08-13 10:11] LABS: Bilirubin Negative (Negative); Blood Trace-intact (Negative); Clarity Sl Cloudy (Clear); Glucose Negative (Negative); Ketones Negative (Negative); Leukocyte Esterase Negative (Negative); Nitrite Positive (Negative); Specific Gravity 1.015 (1.005-1.025); Urobilinogen 0.2 mg/dL (Up to 0.2); pH 7.5 (5-8)
[2024-08-13 10:18] LABS: Bacteria Many HPF (Negative); C & S Indicated? No; Casts Negative LPF (Negative); Crystals Negative HPF (Negative); Epithelial Cells Few HPF (Negative); Mucus Negative (Negative); Other Cells Few Renal (Negative); RBC 0-2 HPF (0-2); WBC 0-2 HPF (0-5)
--- NOTE | 2024-08-13 10:41 | W.PC.ACHO ---
Registration Status: ADM IN Primary Language: Preferred Language: ED Information & Data Chief Complaint Orthopedic 08/13/24 07:15 Triage Note Pt reports that she was 08/13/24 07:00 carrying a child, attempted to step over a child gate and tripped over the gate injuring her left hip, unable to put any weight on the hip/leg Medical / Surgical History (Last Reviewed 07/07/24 @ 11:59 by Delia Gunter MD) Menopause present Cramps of lower extremity Low back pain Female stress incontinence Colitis GERD with esophagitis Essential hypertension Migraine without aura Migraine with aura Primary insomnia Hyperlipidemia (Last Reviewed 07/07/24 @ 11:59 by Delia Gunter MD) S/P hysterectomy S/P cholecystectomy Most Recent Vital Signs Temperature 36.2 C L 08/13/24 10:28 Temperature Source Skin 08/13/24 10:28 Pulse 76 08/13/24 10:28 Respiratory Rate 16 08/13/24 10:28 Blood Pressure 163/88 H 08/13/24 10:28 Blood Pressure Mean 113 08/13/24 10:28 Blood Pressure Position Supine 08/13/24 09:01 Pulse Oximetry 96 08/13/24 10:28 Oxygen Delivery Method Room Air 08/13/24 10:28 Oxygen Flow Rate 0 08/13/24 10:28 Pain Level 5 08/13/24 10:28 Comment Increases when standing up 08/13/24 07:00 Allergies No Known Allergies Allergy (Verified 08/13/24 07:05) Precautions Isolation Standard precaution 08/13/24 07:04 Active Medications Generic Name Dose Route Start Last Admin Trade Name Supa PRN Reason Stop Dose Admin Sodium Chloride 0 ml 08/13/24 07:11 08/13/24 07:37 Normal Saline Flush 10 Ml Syr IVP 20 ml PRN PRN Administration Sodium Chloride 0 ml 08/13/24 08:30 08/13/24 08:45 Normal Saline Flush 10 Ml Syr IVP Not Given BID LION IV IV Catheter Type [Left Saline Lock Antecubital] IV Catheter Gauge [Left 20 Antecubital] Diet Orders Category Date Time Status Nothing Per Oral [DIET] Nutrition 08/13/24 10:19 Active Diagnostics 08/13/24 08/13/24 Range/Units 09:00 07:25 WBC 7.29 (4.4-10.8) 10^3/uL RBC 4.61 (3.93-5.22) 10^6/uL Hgb 13.4 (11.2-15.7) g/dL Hct 40.5 (36.0-46.0) % MCV 88 (80-95) fL MCH 29.1 (27.0-33.0) pg MCHC 33.1 (32.0-36.0) % RDW 13.1 (11.7-14.6) % Plt Count 209 (130-400) 10^3/uL MPV 9.6 (8.0-11.0) fL Immature Gran % 0.7 % Neutrophils % 71.5 % Lymphocytes % 19.3 % Monocytes % 6.7 % Eosinophils % 1.5 % Basophils % 0.3 % Nucleated RBC % 0.0 (0.0-0.3) % Absolute Neutrophils 5.21 (1.2-6.7) 10^3/uL Absolute Lymphocytes 1.41 (1.2-3.4) 10^3/uL Absolute Monocytes 0.49 (0.1-0.8) 10^3/uL Absolute Eosinophils 0.11 (0.0-0.7) 10^3/uL Absolute Basophils 0.02 (0.0-0.2) 10^3/uL Sodium 141 (136-145) mmol/L Potassium 3.4 L (3.5-5.1) mmol/L Chloride 105 (98-107) mmol/L Carbon Dioxide 27.7 (21.0-32.0) mmol/L Anion Gap 8.3 (3-11) mmol/L BUN 18 (7-18) mg/dL Creatinine 0.8 (0.55-1.02) mg/dL Est GFR (CKD-EPI 2020) 78.24 (mL/min/1.73m2) Glucose 143 H (74-106) mg/dL Calcium 8.9 (8.5-10.1) mg/dL Magnesium 2.0 (1.8-2.4) mg/dL Total Bilirubin 0.6 (0.2-1.0) mg/dL AST 20 (15-37) U/L ALT 30 (14-59) U/L Alkaline Phosphatase 107 (46-116) U/L Total Protein 6.8 (6.4-8.2) g/dL Albumin 3.8 (3.4-5.0) g/dL Urine Color Yellow (Yellow) Urine Clarity Sl Cloudy (Clear) Urine pH 7.5 (5-8) Ur Specific [place] 1.015 (1.005-1.025) Urine Protein Negative (Neg-Trace) mg/dL Urine Ketones Negative (Negative) mg/dL Urine Blood Trace-intact H (Negative) Urine Nitrite Positive H (Negative) Urine Bilirubin Negative (Negative) Urine Urobilinogen 0.2 (Up to 0.2) mg/dL Ur Leukocyte Esterase Negative (Negative) Urine RBC 0-2 (0-2) HPF Urine WBC 0-2 (0-5) HPF Ur Epithelial Cells Few (Negative) HPF Urine Crystals Negative (Negative) HPF Urine Bacteria Many (Negative) HPF Urine Casts Negative (Negative) LPF Urine Mucus Negative (Negative) Urine Other Few Renal (Negative) Ur Culture Indicated? No Urine Glucose Negative (Negative) mg/dL Intake and Output - 24 Hour Total 08/13/24 06:56 thru 08/13/24 09:00 Intake Total 110 Output Total 600 Balance -490 Weight 66.678 kg Intake: IV 110 Output: Urine 600 Other: Urine Color Pale Urine Appearance Clear Urinary Catheter Urinary Catheter Date of 08/13/24 Insertion [Urethral (Martinez)] Time of insertion [Urethral ( 09:00 Martinez)] Falls Risk Assessment History of Falls Admit Due to Fall 08/13/24 07:08 Contributing Factors Impairments 08/13/24 07:08 Tubes/Lines None 08/13/24 07:08 Gait Evaluation W/no contributing factors 08/13/24 07:08 Cognition No cognitive impairment 08/13/24 07:08 Fall Total Score 38 08/13/24 07:08 Level of Risk Standard/Low Risk 08/13/24 07:08 Problems (Last Reviewed 07/07/24 @ 11:59 by Delia Gunter MD) Fracture of femoral neck, left (Acute 08/13/24) v v v v v v v v v Sending and/or Receiving Nurses: Please use comment section below to note any information pertinent to the patient hand-off not included above. Information / Comments: Arrived to floor via stretcher, transferred to the bed without complication. AOx3, VSS, pain in acceptable level, educated on visitor policies, call reyes use, etc. Pain managing plan discussed. Report received from: Marzena
--- NOTE | 2024-08-13 11:56 | ROE_ITS ---
Operative Note Operative Note PRE-OP DIAGNOSIS: Left hip mildly displaced femoral neck fracture POST-OP DIAGNOSIS: same PROCEDURE: Left hip internal fixation, CPT #27343 SURGEON: Mike Toledo NURSING SERVICE ADMINISTRATOR: None None ANESTHESIA TYPE: Local By Surgeon and General LMA/ETT Refer to Anesthesia Record ESTIMATED BLOOD LOSS: 5 COMPLICATIONS: None Patient was transported to: PACU Patient's condition: stable Implants: Synthes 7.3 mm cannulated screws with longer 32 mm threads: 90 mm inferior, 80 mm anterior and posterior superior Indications: Please see complete medical record for details. Procedure Description: In the operating room, general anesthesia was induced. The patient was carefully transferred and positioned supine on the operating room [place] table. All bony prominences were well-padded. Preoperative antibiotics were administered. The left hip was prepped and draped in the usual sterile fashion. The correct patient, procedure, and side of the procedure were all verified prior to incision. Fluoroscopy was used to confirm appropriate femoral neck fracture alignment. It remained essentially anatomically aligned on the lateral view and in slight valgus on the AP view. No additional displacement, comminution, or angulation was appreciated. No reduction maneuver or conversion to hip replacement surgery was indicated. The lateral start point was noted with a wire, 40 cc of 0.25% bupivacaine containing epinephrine was infiltrated superficially and deeply about the bone, and then a small longitudinal incision made here extending proximally to accommodate the planned screw fixation. The 2.8 mm threaded guidewire was then directed centrally through a puncture in the iliotibial band, localized using tactile feel on the central aspect of the lateral proximal femur at the level of the lesser trochanter and then directed using fluoroscopic guidance through the inferior femoral neck and carefully stopping in the subchondral bone in the femoral head taking care not to violate the joint. Next the superior posterior wire was directed similarly followed by the superior anterior guidewire. All wires were checked and then measured. A few millimeters was removed for the implants. The 5.0 mm cannulated drill was used to open the lateral cortex, but not used to drill or remove bone from the femo ral head or neck fracture area. Sequentially the inferior then posterior and then anterior superior screws were inserted over the guidewires, and then gently seated superior screws and lastly inferior screw. Care was taken to avoid over compressing or mall reducing the fracture. Longer 32 mm thread length was chosen to cross the fracture and prevent shortening collapse while maintaining the complete fracture in its stable somewhat valgus impacted position. The guidewires were pulled back and final images confirmed appropriate fracture position and hardware placement. The small wound was copiously irrigated normal saline. Subcutaneous tissue was closed with 2-0 Monocryl buried interrupted and skin glue applied over the incision followed by Mepilex bandage. The patient awoke from anesthesia without complication and was transferred to the recovery room in a stable condition. Date of Procedure: 08/13/24
--- NOTE | 2024-08-13 12:43 | W.PM.PROGNOT ---
Date of Service Date of service: 08/13/24 Time of Service: 16:41 Assessment and Plan Assessment and plan (1) Fracture of femoral neck, left: Status: Acute Assessment and plan: 74-year-old female postop day #0 status post Left hip cannulated screws Complete 24 hours postoperative antibiotics Discontinue Martinez catheter postop day #1 in AM Pain control-Multimodal Physical therapy: Protected weightbearing with assist device (crutches or walker). Gentle hip range of motion. May start chemical DVT prophylaxis this evening: Lovenox ordered while inpatient, but should use aspirin 81 mg twice daily for 30 days as outpatient Continue mechanical DVT prophylaxis with SCDs and/or JOSE oneile My physician public health training assistant will see the patient tomorrow Discharge when medically appropriate Follow-up with Dr. Toledo outpatient [facility] in about 10 days. My office will make this appointment. Reviewed with admitting hospitalist Objective Last Vital Signs Temp 97.2 F L 08/13/24 11:02 Pulse 76 08/13/24 11:02 Resp 16 08/13/24 11:02 BP 163/88 H 08/13/24 11:02 Pulse Ox 96 08/13/24 11:02 Laboratory Results - last 24 hr 08/13/24 08/13/24 07:25 09:00 WBC 7.29 RBC 4.61 Hgb 13.4 Hct 40.5 MCV 88 MCH 29.1 MCHC 33.1 RDW 13.1 Plt Count 209 MPV 9.6 Immature Gran % 0.7 Neutrophils % 71.5 Lymphocytes % 19.3 Monocytes % 6.7 Eosinophils % 1.5 Basophils % 0.3 Nucleated RBC % 0.0 Absolute Neutrophils 5.21 Absolute Lymphocytes 1.41 Absolute Monocytes 0.49 Absolute Eosinophils 0.11 Absolute Basophils 0.02 Sodium 141 Potassium 3.4 L Chloride 105 Carbon Dioxide 27.7 Anion Gap 8.3 BUN 18 Creatinine 0.8 Est GFR (CKD-EPI 2020) 78.24 Glucose 143 H Calcium 8.9 Magnesium 2.0 Total Bilirubin 0.6 AST 20 ALT 30 Alkaline Phosphatase 107 Total Protein 6.8 Albumin 3.8 Urine Color Yellow Urine Clarity Sl Cloudy Urine pH 7.5 Ur Specific [place] 1.015 Urine Protein Negative Urine Ketones Negative Urine Blood Trace-intact H Urine Nitrite Positive H Urine Bilirubin Negative Urine Urobilinogen 0.2 Ur Leukocyte Esterase Negative Urine RBC 0-2 Urine WBC 0-2 Ur Epithelial Cells Few Urine Crystals Negative Urine Bacteria Many Urine Casts Negative Urine Mucus Negative Urine Other Few Renal Ur Culture Indicated? No Urine Glucose Negative Time Spent with Patient Time Spent with Patient: <25 minutes Time was spent: preparing to see the patient(eg.review tests), obtaining and/or reviewing separately otained hiistory, referring, communicating with other health care team coordinator scheduler and care coordination
--- NOTE | 2024-08-13 13:03 | INITIAL_ITS ---
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 She reportedly fell on her left hip and had c/o pain and inability to move the hip. Swathi was found to have a complete femoral neck fracture. Swathi will require surgical repair for that hip. After speaking with the surgeon, she has decided to proceed with internal fixation as opposed to total replacement. Swathi was lying in bed when CM met with her today. She was very pleasant and soft spoken. She stated that she is going to surgery this afternoon. She denied being in any pain at the time, she feels she is being adequately medicated. Swathi stated that her son and [id number] will stay with her, at least over the weekend, to help her out. Her colleagues have all volunteered to help with rides and meals. Swathi lives alone but feels that she will have all the help she needs. That said, she would be open to supports if needed. 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[employer]) Instrumental Activities of Daily Living (ADLs): Independent Medications Medication Management: No Issues/Barriers identified Advance Directives Advance Directives: Do you have an Advance Directive: AD On File at [facility]: N 11/15/23, 22:00 Date Asked 08/13/24 Today, 07:17 AD Date Reviewed COLST On File at [facility] COLST Date Scanned Code Status Resuscitation Status Full Code Insurance Coverage/Financial Issues Insurance: Medicare Part A & B Care Team Visit Care Team Role Provider Type Andres Basurto Primary Care Provider NON-[facility] STAFF PHYSICIAN Igor Sue MD Emergency Provider [facility] STAFF PHYSICIAN Jadon Hyman MD Admit Provider [facility] STAFF PHYSICIAN Attending Provider Discharge Potential Discharge Needs: PT Evaluation, PCP F/U Appt and Surgical F/U Appt Anticipated Barriers to Discharge: None Identified Patient/Family Education Needs: Review discharge instructions, discuss Ask Me Three Transportation: Private vehicle Plan: Anticipate that Swathi will discharge home once medically stable after her surgery. She will f/u with her PCP and the orthopedic surgeon and continue per her plan of care. She may require HH services, this will be determined after surgery and her PT sada. Swathi will transport home in a private vehicle with her son. CM will continue to follow and update the plan as needed. Social Determinants of Health Screening Social Determinants of health last assessed in clinic: 08/13/24 Will the Patient Participate in the Screening?: Yes Do you worry about having a steady place to live?: no Problems where you live: no known problems In the past 12 months, have you had to go without electric, gas, oil or water in your home?: no 1. Within the past 12 months, we worried whether our food would run out before we got money to buy more.: Never true 2. Within the past 12 months, the food we bought just didn't last and we didn't have money to get more.: Never true Has lack of transportation kept you from medical appointments or from doing things needed for daily living?: no Has anyone in your life made you feel unsafe or unsupported?: no How hard is it for you to pay for the very basics like food, housing, medical care, and heating? Would you say it is:: Not hard at all Do you want help finding or keeping work or a job?: I do not need or want help If for any reason you need help with day-to-day activities such as bathing, preparing meals, shopping, managing finances, etc., do you get the help you need?: I don’t need any help How often do you feel lonely or isolated from those around you?: Never Do you speak a language other than [place]oc[place] at home?: No Does the patient want assistance with any of the above?: No PFSH All Active Problems (Updated 08/13/24 @ 09:19 by Igor Sue MD) Fall (Acute) Fracture of femoral neck, left (Acute 08/13/24) Sinus disease (Acute) Hemiplegic migraine (Acute) Babinski sign positive in left foot (Acute) Balance disorder (Acute) Medical History Menopause present Cramps of lower extremity Low back pain Female stress incontinence Colitis GERD with esophagitis Essential hypertension Migraine without aura Migraine with aura Primary insomnia Hyperlipidemia Surgical History S/P hysterectomy S/P cholecystectomy Family History Father Diabetes Mother Heart disease Sister Heart disease Social History Smoking/Tobacco Use Status: Never Smoking risk assessment performed?: Yes Alcohol Intake: never Drug use: Never Substance use type: does not use Household members: none Housing: house Number of Children: 2 current occupation: Childcare provider What is your relationship status?: Panel score (0-1 are the most socially isolated patients): 0
--- NOTE | 2024-08-13 13:37 | W.ANESPRE ---
General Info Date of Service Date Performed: 08/13/24 Height: 5 ft 6 in Weight: 66.714 kg Body Mass Index (BMI): 23.7 Surgical Procedure: Operation Date: 08/13/24 15:25 Proposed Procedure Side Surgeon p Hip Cannulated Fx Left Mike Toledo MD Meds Allergies and Home Medications Allergies Allergy/AdvReac Type Severity Reaction Status Date / Time No Known Allergies Allergy Verified 08/13/24 07:05 Home Medication Medication Instructions Recorded ascorbic acid (vitamin C) 250 mg 250 mg PO DAILY 03/03/24 tablet atorvastatin 40 mg tablet 40 mg PO DAILY 03/03/24 magnesium oxide 500 mg capsule 500 mg PO DAILY 03/03/24 pantoprazole 40 mg tablet,delayed 40 mg PO DAILY 03/03/24 release promethazine 25 mg tablet 25 mg PO QID PRN 03/03/24 zinc glycinate 20 mg capsule 20 mg PO DAILY 03/03/24 Current Visit Medications: Current Medications Generic Name Dose Route Start Last Admin Trade Name Freq PRN Reason Stop Dose Admin Acetaminophen 0 mg 08/13/24 10:19 Acetaminophen 325 Mg Tab PO Q4H PRN PRN Atorvastatin Calcium 40 mg 08/14/24 08:30 Atorvastatin 40 Mg Tab PO DAILY LION Docusate Sodium 100 mg 08/13/24 10:19 Docusate Sodium 100 Mg Cap PO TID PRN PRN Hydromorphone HCl 0.5 mg 08/13/24 10:19 Hydromorphone 2 Mg/Ml Syr IVP Q4H PRN PRN IV Miscellaneous Supplies 1 each 08/13/24 10:19 Iv Access IV DIRECTED LION Pantoprazole Sodium 40 mg 08/14/24 07:30 Pantoprazole 40 Mg Tabcr PO DAILY@0730 LION Polyethylene Glycol 17 gm 08/13/24 10:19 Polyethylene Glycol 3350 17 Gm Packet PO DAILY PRN PRN Constipation Sodium Chloride 0 ml 08/13/24 10:19 Normal Saline Flush 10 Ml Syr IVP PRN PRN Sodium Chloride 0 ml 08/13/24 20:00 Normal Saline Flush 10 Ml Syr IVP BID LION Sodium Chloride 0 ml 08/13/24 10:19 Normal Saline 10 Ml Vial IJ DIRECTED PRN PFSH Active Problems Active Problems: Problem Status Onset Code Fall Acute W19.XXXA Fracture of femoral neck, left Acute 08/13/24 S72.002A Sinus disease Acute J34.9 Hemiplegic migraine Acute G43.409 Babinski sign positive in left foot Acute R29.2 Balance disorder Acute R26.89 Medical History Medical History Menopause present Cramps of lower extremity Low back pain Female stress incontinence Colitis GERD with esophagitis Essential hypertension Migraine without aura Migraine with aura Primary insomnia Hyperlipidemia Surgical History Surgical History S/P hysterectomy S/P cholecystectomy Tobacco Smoking/Tobacco Use Status: Never Alcohol Alcohol Intake: never Substance Use Substance use: Never Substance use type: does not use Vital Signs and Lab Results Vital Signs Most Recent Vital Signs in EMR: Most Recent Vital Signs Temp Pulse Resp BP Pulse Ox 36.2 C L 76 16 163/88 H 96 08/13/24 11:02 08/13/24 11:02 08/13/24 11:02 08/13/24 11:02 08/13/24 11:02 Lab Results 08/13/24 07:25 08/13/24 07:25 Complete Blood Count: WBC, (4.4-10.8) 7.29 10^3/uL Today, 07:25 RBC, (3.93-5.22) 4.61 10^6/uL Today, 07:25 Hgb, (11.2-15.7) 13.4 g/dL Today, 07:25 Hct, (36.0-46.0) 40.5 % Today, 07:25 Plt Count, (130-400) 209 10^3/uL Today, 07:25 Complete Metabolic Panel: Sodium, (136-145) 141 mmol/L Today, 07:25 Potassium, (3.5-5.1) 3.4 mmol/L L Today, 07:25 Chloride, (98-107) 105 mmol/L Today, 07:25 Carbon Dioxide, (21.0-32.0) 27.7 mmol/L Today, 07:25 BUN, (7-18) 18 mg/dL Today, 07:25 Creatinine, (0.55-1.02) 0.8 mg/dL Today, 07:25 Est GFR (CKD-EPI 2020), (mL/min/1.73m2) 78.24 Today, 07:25 Magnesium, (1.8-2.4) 2.0 mg/dL Today, 07:25 Calcium, (8.5-10.1) 8.9 mg/dL Today, 07:25 Albumin, (3.4-5.0) 3.8 g/dL Today, 07:25 Glucose, (74-106) 143 mg/dL H Today, 07:25 Liver Function Panel: ALT, (14-59) 30 U/L Today, 07:25 AST, (15-37) 20 U/L Today, 07:25 Anesthesia Assessment and Plan Anesthesia History Personal History: No History of Anesthesia Complications Family History: No Family History of Anesthesia Complications Exercise Tolerance Exercise Tolerance: Metabolic Equivalents>4 Pertinent Negatives Pertinent Negatives: No Symptoms of GERD (only with food), No Major Cardiovascular Symptoms or Complaints and No Major Pulmonary Symptoms or Complaints Cardiac & Pulmonary Exam Cardiac Exam: Normal S1/S2 Heart Sounds Pulmonary Exam: Clear Bilateral Breath Sounds Implantable Cardiac Device Does patient have a Pacemaker or an ICD?: No Airway Exam Known Difficult Airway: No Mallampati Class: 2 Mouth Opening: Normal (> 3cm) Thyromental Distance: Greater than 3 cm Neck Range of Motion: Full ROM Neck Circumference: Normal Teeth Condition: Normal Dentition Tooth Numbering:  1. Patient indicates missing teeth 2. Patient indicates missing teeth 3. Patient indicates missing teeth ASA Classification ASA Score: ASA 2 Emergency Case?: Yes NPO Status NPO Status: NPO Clears >2 hours, Solids >8 hours Anesthesia Plan Resuscitation Status: Full Code Anesthesia Technique: General Anesthesia Airway Planned: LMA Monitors Used: Standard Monitors
--- NOTE | 2024-08-13 14:30 | DI.RAD_ITS ---
Exam(s) XR HIP LT IN OR EXAM: XR HIP LT IN OR CLINICAL HISTORY: LEFT FEMORAL NECK FRACTURE TECHNIQUE: 2D and realtime digital imaging was performed. CONTRAST MATERIAL: Refer to procedure report. COMPARISON: CT CT PELVIC WO from 08/13/2024 FINDINGS: Fluoroscopy was provided for Dr. Toledo during the performance of a internal fixation of the left femoral neck fracture. Please refer to the procedure report for complete details. Ka,r=5.81 mGy IMPRESSION: RADIATION DOSE DELIVERED: 0.0 0.0 0
[2024-08-13] MEDS: Normal Saline 1,000 ML 30 ML IV (14:56)
[2024-08-13] MEDS: Bupivacaine 0.25% Pres-Free W/EPI 30 ML VIAL (15:40)
[2024-08-13] MEDS: fentaNYL 100 MCG/2 ML VIAL IVP ×2 (16:35→16:50)
--- NOTE | 2024-08-13 17:05 | W.ANESPOSTOP ---
Postoperative Evaluation Date, Time and Location Date Performed: 08/13/24 Time Performed: 17:05 Patient Location: PACU Vital Signs Most Recent Imported Vital Signs: Most Recent Vital Signs Temp Pulse Resp BP Pulse Ox 36.5 C 63 17 112/61 95 08/13/24 16:50 08/13/24 16:51 08/13/24 16:51 08/13/24 16:50 08/13/24 16:51 Pain Score Most Recent Pain Score: Most Recent Pain Score Pain Level [Left Hip] 5 08/13/24 10:28 Pain Level [Left Hip] 8 08/13/24 07:52 Pain Level 6 08/13/24 16:50 Currently 410 at 1705 Assessment Mental Status: Awake (Alert & Oriented to Patient Baseline) Airway and Respiratory Function: Patent airway with normal (patient baseline) respiratory exam Cardiovascular Function: Hemodynamically Stable Hydration Status: Adequately Hydrated Nausea & Vomiting: No Nausea or Vomiting Pain: Pain is tolerable per patient Peripheral Nerve Block: Patient did not receive a nerve block
[2024-08-13] MEDS: ceFAZolin 1 GM/50 ML BAG IVPB (18:32)
[2024-08-13] MEDS: Enoxaparin 40 MG/0.4 ML SYR SC (20:19)
[2024-08-14] MEDS: MORPHine 10 MG/ML VIAL IVP ×2 (01:48→07:59)
[2024-08-14] MEDS: ceFAZolin 1 GM/50 ML BAG IVPB ×2 (02:56→11:18)
[2024-08-14 06:39] LABS: HGB 12.5 g/dL (11.2-15.7); MCH 29.3 pg (27.0-33.0); MCHC 33.8 % (32.0-36.0); MCV 87 fL (80-95); MPV 10.1 fL (8.0-11.0); Platelet Count 177 10^3/uL (130-400); RBC 4.26 10^6/uL (3.93-5.22); RDW-SD 41.1 fL; WBC 7.03 10^3/uL (4.4-10.8)
[2024-08-14 06:54] LABS: Anion Gap 11.5 mmol/L (3-11); BUN 10 mg/dL (7-18); CO2 25.5 mmol/L (21.0-32.0); Calcium 8.3 mg/dL (8.5-10.1); Chloride 105 mmol/L (98-107); Estimated GFR 91.83 (mL/min/1.73m2); Glucose 104 mg/dL (74-106); Magnesium 2.1 mg/dL (1.8-2.4); Potassium 3.1 mmol/L (3.5-5.1); Sodium 142 mmol/L (136-145)
[2024-08-14 07:15] VITALS: BP 114/94; PULSE 75; RESP 16; TEMP 37.5; O2SAT 96
[2024-08-14] MEDS: Normal Saline Flush 10 ML SYR IVP ×2 (08:00→11:17)
[2024-08-14] MEDS: Pantoprazole 40 MG TABCR PO (08:12)
[2024-08-14] MEDS: Atorvastatin 40 MG TAB PO (08:13)
[2024-08-14] MEDS: Acetaminophen 500 MG TAB 1000 MG PO (08:51)
--- NOTE | 2024-08-14 08:53 | PT.INIE ---
PT Notes Visit Reasons: Left Hip Fracture Physical Therapy Inpatient Initial Evaluation Date: 08/14/2024 Referring Doctor: Mike Toledo MD PT Orders: PT CONSULT: S/p Ortho surgery. Protected WB Lt hip with walker or crutches Precautions: Fall. Standard. Per Dr. Toledo as of 08/14/2024 protected weight bearing through the left hip with AD. Patient Profile/Admitting Diagnosis: Swathi is a 74-year-old female who sustained a mildly impacted subcapital fracture of the left femoral neck and is status post ORIF on postoperative day 1. 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 Independent with all aspects of ADLs prior to surgery.. Equipment Owned/DME: None Subjective: Agreeable to working with PT for today's evaluation. Complained of 3/10 pain through the left hip with weight bearing. Objective: General Observation: Mepilex Ag over surgical incision. TEtrialing out a walk with PT today. Reported 3/10 pain DS to be legs. IV through the right UE. Mental Status: Alert and oriented as to person, place, time, and purpose. Able to pay attention, focus, and respond appropriately. Pain: 3/10 in L hip Vital Signs: Closely monitored by nursing staff ROM: Right Lower Extremity: Hip flexion WFL. Hip abduction WFL. Knee flexion WFL. Ankle dorsiflexion WFL. Ankle plantarflexion WFL. Left Lower Extremity: Hip flexion WFL. Hip abduction WFL. Knee flexion WFL. Ankle dorsiflexion WFL. Ankle plantarflexion WFL. Strength: Right Lower Extremity: Hip flexors 5/5. Hip abductors 5/5. Knee flexors 5/5. Knee extensors 5/5. Ankle dorsiflexors 5/5. Ankle plantarflexors 5/5. Left Lower Extremity: Hip flexors 4-/5. Hip abductors 4-/5. Knee flexors 4-/5. Knee extensors 4-/5. Ankle dorsiflexors 5/5. Ankle plantarflexors 5 /5. Bed Mobility/Transfers: Minimal cueing provided for use of B hands as needed for support, movement sequence, AD management, and posture to reduce fall risk and minimize pain report Rolling stand by assist Supine to sit stand by assist Sit to stand stand by assist with FWW Stand to sit stand by assist with FWW Bed to reclining chair stand by assist with FWW Gait: Facilitated safe performance surface ambulation covering a distance of 250 feet utilizing front wheeled walker with standby assist and step to gait pattern with protected weight weight bearing bearing through left lower extremity. Minimal verbal cueing provided for AD management, correct WB technique and posture to minimize pain reported reduce fall risk. Stairs: Guided patient with safe and correct negotiation of 6 x 4 inch steps and 4 x 6 inch steps while holding onto bilateral rails with step to gait pattern requiring only standby assistance verbal cueing for correct movement sequence, hand placement, and posture to minimize pain reported reduce fall risk. Balance: Static Sitting: Normal Dynamic Sitting: Normal Static Standing: Fair Dynamic Standing: Fair Special Tests: Mobility Limitations Standardized Measure [facility] AM-PAC 6 clicks Basic Mobility Inpatient Short Form: Raw Score: 23 CMS Score: 11% deficit Informed Consent/Education: Patient was instructed in purpose of PT consult and plan of care. Agreeable to proceed with established PT POC to achieve personal goals. Trained patient with correct performance of exercises below to maximize motor control, joint flexibility, soft tissue extensibility of the L hip musculature to facilitate return to independent functional mobility performance. Access Code: [email or web address] URL: [email or web address] Date: 08/14/2024 Prepared by: Modesta Collins Exercises - Gluteal Sets - 1 x daily - 7 x weekly - 1 sets - 10 reps - 5 hold - Supine Heel Slide - 1 x daily - 7 x weekly - 1 sets - 10 reps - 5 hold - Supine Ankle Pumps - 1 x daily - 7 x weekly - 1 sets - 10 reps - 5 hold - Seated March - 1 x daily - 7 x weekly - 1 sets - 10 reps - 5 hold - Seated Long Arc Quad - 1 x daily - 7 x weekly - 1 sets - 10 reps - 5 hold Assessment: Patient requires the use of a front-wheeled walker for all mobility ADlperformance to maximize independence and reduce fall risk with pain report only at /10 as she was pre-medicated by Nurse Quezada for pain. Patient presents with clinical signs and symptoms consistent with current/admitting diagnoses that have resulted to mobility limitations, gait instability, generalized weakness, and overall ADL decline as demonstrated by the following impairment level findings: 1. Decreased strength to L hip major muscle groups 2. Impaired sitting/standing balance 3. Impaired activity tolerance Impairments are contributing to the following functional limitations: 1. Decline in bed mobility skills 2. Decline in transfer skills 3. Difficulty with ambulation without assistive device 4. Increased completion time for mobility ADL performance 5. Increased risk for falls 6. Difficulty with managing steps alone safely Patient is assessed as a 52491 moderate complexity based on the following: History: 74-year-old female with past medical history as indicated above Examination: Demonstrable impairment in strength, balance, and mobility level with underlying impairments and functional limitations as exhibited above as well as deficit score of 11% utilizing the [facility] Mobility Inpatient Short Form Presentation: Evolving Decision Makin moderate complexity Goals: Goals X1 week 1. Supine-Sit independent 2. Sit-Supine independent 3. Sit-Stand independent 4. Stand-Sit independent with FWW 5. Bed-Chair independent with FWW 6. Chair-Bed independent with FWW 7. Independent gait on level surface with use of FWW for at least 300 feet without report of pain nor dyspnea 8. Independent stair negotiation while holding onto 1 rail for at least 3 steps without report of pain nor dyspnea 9. Independent with home exercise program 10. Good static and dynamic standing balance/tolerance Plan of Care/Treatment Plan: 1-2x/day, 7 days/week x 1 week. Plan of care has been reviewed with the [employer] providing the service under Physical Therapy direction. Initiate Physical Therapy intervention for pain management as needed, strengthening, bed mobility, transfers, gait, stairs, balance training, and use of assistive device. DISCHARGE RECOMMENDATIONS: [] Home with no services [] [] Home with services [specify] [X] Home with outpatient PT. Home with OP PT for contnued rehab post op per orthocpedic protocol to facilitate return to community ambulation without an assistive device. [] SNF for continued rehabilitation [] [] [facility] [] [] SNF versus LTC based on ability to participate and progress [] TREATMENT CODE/TIME: 38891 x 25 minutes for 1 unit, 20798 x 17 minutes for 1 unit (8:53-9:35). Thank you for the opportunity to participate in the care of this patient. Modesta Collins PT, DPT, CLT [facility] [place], [place]
--- NOTE | 2024-08-14 10:57 | W.PM.DS.N ---
Date of service: 08/14/24 Time of Service: 10:57 DS: Diagnosis Discharge Diagnosis (1) Fracture of femoral neck, left: Status: Acute (2) GERD with esophagitis: (3) Essential hypertension: Discharge Plan Disposition Patient Disposition: Home Condition: Good Discharge Details Reason For Visit: Left Hip Fracture Admit Date/Time: 08/13/24 09:04 Admit Provider: Jadon Hyman Attending Provider: Jadon Hyman Primary Care Provider: Andres Basurto Hospital Course Hospital Course: Patient initially presented after a fall onto her left hip that was determined to result in a left subcapital femoral neck fracture. She was taken to the OR on day of presentation and had operative fixation with orthopedic surgery at that went very well. Postop day 1 08/14/2024 patient was able to fully ambulate with physical therapy without any restrictions or recommendations for outpatient follow-up. At which time it was determined that the patient was stable for discharge home. Home Meds and New Rx's Prescriptions: Continued ascorbic acid (vitamin C) 250 mg tablet 250 mg PO DAILY atorvastatin 40 mg tablet 40 mg PO DAILY magnesium oxide 500 mg capsule 500 mg PO DAILY pantoprazole 40 mg tablet,delayed release (DR/EC) 40 mg PO DAILY promethazine 25 mg tablet 25 mg PO QID PRN zinc glycinate 20 mg capsule 20 mg PO DAILY Discharge Instructions Activity:: Activity as Tolerated Equipment/Supplies:: No Equipment Needed Diet:: As Tolerated Discharge Orders Discharge Orders: Discharge Order (Routine); Ordered 08/14/24 Ordered By: Jadon Hyman DS: Summary Time Spent with Patient providing and/or coordinating discharge services: Greater than 30 minutes Status at Discharge Functional status at discharge: independent ambulation Overall status at discharge: patient is back to baseline Mental Status: mental status grossly normal Speech and Movement: speech and movement normal Mood: congruent mood Affect: normal affect Exam Narrative Exam Narrative: well appearing female laying in bed in no acute distress, AOx4, heart RRR, lungs CTAB, abdomen soft, non-tender, non-distended, bandage over left hip without surrounding erythema or drainage Psych Mental Status: mental status grossly normal Speech and Movement: speech and movement normal Mood: congruent mood Affect: normal affect DS: Data Vitals/I&O Vitals and I&O: Vital Signs Temperature 99.5 F 08/14/24 07:15 Temperature Source Temporal Artery Scan 08/14/24 07:15 Pulse 75 08/14/24 07:15 Pulse Rhythm Regular 08/13/24 11:02 Pulse 63 08/13/24 16:51 Respiratory Rate 16 08/14/24 07:15 Respiratory Effort Normal 08/13/24 11:02 Respiratory Depth Normal 08/13/24 11:02 Respiratory Pattern Normal 08/13/24 11:02 Blood Pressure 114/94 H 08/14/24 07:15 Blood Pressure Mean 100 08/14/24 07:15 Blood Pressure Position Supine 08/13/24 09:01 Pulse Oximetry 96 08/14/24 07:15 Respiratory End-tidal CO2 32 08/13/24 16:51 Oxygen Delivery Method Room Air 08/14/24 07:15 Oxygen Flow Rate 0 08/14/24 07:15 Pain Level 4 08/14/24 08:51 Comment RN notified 08/14/24 07:15 Intake & Output 08/13/24 08/14/24 08/14/24 17:59 05:59 17:59 Intake Total 910 / 910 50 / 960 490 / 490 Output Total 1200 / 1200 1450 / 2650 1000 / 1000 Balance -290 / -290 -1400 / -1690 -510 / -510 Weight 147 lb 1.272 oz Intake: IV 910 / 910 50 / 960 250 / 250 Oral 0 / 0 240 / 240 Output: Urine 1200 / 1200 1450 / 2650 1000 / 1000 Other: Urine Color Yellow Yellow Pale Yellow Urine Appearance Clear Clear Clear Urine Odor Normal Comment PACU AND ITRAOP Emesis Description None Data Completed and Pending Labs on day of discharge: Labs from last 24 hours 08/14/24 06:11 WBC 7.03 RBC 4.26 Hgb 12.5 Hct 37.0 MCV 87 MCH 29.3 MCHC 33.8 RDW 13.0 Plt Count 177 MPV 10.1 Sodium 142 Potassium 3.1 L Chloride 105 Carbon Dioxide 25.5 Anion Gap 11.5 H BUN 10 Creatinine 0.7 Est GFR (CKD-EPI 2020) 91.83 Glucose 104 Calcium 8.3 L Magnesium 2.1 PFSH All Active Problems (Updated 08/13/24 @ 09:19 by Igor Sue MD) Fall (Acute) Fracture of femoral neck, left (Acute 08/13/24) Sinus disease (Acute) Hemiplegic migraine (Acute) Babinski sign positive in left foot (Acute) Balance disorder (Acute) Medical History Menopause present Cramps of lower extremity Low back pain Female stress incontinence Colitis GERD with esophagitis Essential hypertension Migraine without aura Migraine with aura Primary insomnia Hyperlipidemia Surgical History S/P hysterectomy S/P cholecystectomy Family History Father Diabetes Mother Heart disease Sister Heart disease Social History Smoking/Tobacco Use Status: Never Smoking risk assessment performed?: Yes Alcohol Intake: never Drug use: Never Substance use type: does not use Household members: none Housing: house Number of Children: 2 current occupation: Childcare provider What is your relationship status?: Panel score (0-1 are the most socially isolated patients): 0 Time Spent with Patient Time Spent with Patient: <45 minutes Time was spent: preparing to see the patient(eg.review tests), obtaining and/or reviewing separately otained hiistory, ordering medications,tests, procedures, referring, communicating with other health foster care social worker, indepentently interpreting results, counseling the patient and care coordination
--- NOTE | 2024-08-14 11:05 | PTTR_ITS ---
PT Notes Visit Reasons: Left Hip Fracture Physical Therapy Inpatient Treatment Note Date: 08/14/2024 Precautions: Fall. Standard. Per Dr. Toledo as of 08/14/2024 protected weight bearing through the left hip with AD. Subjective: Agreeable to session with HEP instruction and training. Complained of 1-2/10 pain through the left hip with weight bearing. Objective: General Observation: Mepilex Ag over surgical incision. TEDS to be legs. IV through the right UE. Mental Status: Alert and oriented as to person, place, time, and purpose. Able to pay attention, focus, and respond appropriately. Pain: 1-2/10 in L hip Vital Signs: Closely monitored by nursing staff Bed Mobility/Transfers: Minimal cueing provided for use of B hands as needed for support, movement sequence, AD management, and posture to reduce fall risk and minimize pain report Rolling stand by assist Supine to sit stand by assist Sit to stand stand by assist with FWW Stand to sit stand by assist with FWW Bed to reclining chair stand by assist with FWW Balance: Static Sitting: Normal Dynamic Sitting: Normal Static Standing: Fair Dynamic Standing: Fair THERA EX: Reviewed with patient with correct performance of exercises below to maximize motor control, joint flexibility, soft tissue extensibility of the L hip musculature to facilitate return to independent functional mobility performance. Access Code: [email or web address] URL: [email or web address] Date: 08/14/2024 Prepared by: Modesta Collins Exercises - Gluteal Sets - 1 x daily - 7 x weekly - 1 sets - 10 reps - 5 hold - Supine Heel Slide - 1 x daily - 7 x weekly - 1 sets - 10 reps - 5 hold - Supine Ankle Pumps - 1 x daily - 7 x weekly - 1 sets - 10 reps - 5 hold - Seated March - 1 x daily - 7 x weekly - 1 sets - 10 reps - 5 hold - Seated Long Arc Quad - 1 x daily - 7 x weekly - 1 sets - 10 reps - 5 hold Assessment: Swathi snydertes good mastery of HEP at this time. She has been a copy of the exercises for home to maximize compliance. Patient requires the use of a front- wheeled walker for all mobility ADlperformance to maximize independence and reduce fall risk with pain report only at 3/10 as she was pre-medicated by Nurse Quezada for pain. Plan of Care/Treatment Plan: 1-2x/day, 7 days/week x 1 week. Plan of care has been reviewed with the INTERNAL SECURITY MANAGER providing the service under Physical Therapy direction. Initiate Physical Therapy intervention for pain management as needed, strengthening, bed mobility, transfers, gait, stairs, balance training, and use of assistive device. DISCHARGE RECOMMENDATIONS: [] Home with no services [] [] Home with services [specify] [X] Home with outpatient PT. Home with OP PT for continued rehab post op per orthocpedic protocol to facilitate return to community ambulation without an assistive device. [] SNF for continued rehabilitation [] [] [facility] [] [] SNF versus LTC based on ability to participate and progress [] TREATMENT CODE/TIME: 68438 x 15 minutes for 1 unit (11:05-11:20).
[2024-08-14 11:39] VITALS: TEMP 36.9
--- NOTE | 2024-08-14 12:55 | NUR.NOTE ---
Nursing Note: Reviewed documentation by Brent Rayo, student MANAGER OF ENGINEERING. Agree with assessment.
--- NOTE | 2024-08-14 14:51 | PDOC.CMDIS ---
Date of service: 08/14/24 Time of Service: 14:51 LACE Index Scoring Tool Questions: Length of Stay (in days): 1 Was the patient admitted via the E.D.?: Yes E.D. Visits: 2 Answers: Total Score: 6 Risk of Readmission: Low Risk Care Management Discharge Plan Reason for Hospitalization: left hip fracture, s/p internal fixation Discharge Plan: Swathi was discharged home with no new services. PT gave her a hand out and reviewed exercises to do at home. She will f/u with the surgeon on 08/25 and if cleared and/or necessary, she will attend outpatient PT. Swathi will continue per her plan of care. Swathi was transported home in a private vehicle by her son. Swathi will have help from family in her home. Patient/Family Education Needs: Review of discharge instructions, activity, limitations, and discuss Ask me 3.
== END 2024-08-14 12:08 | disposition home or self-care (01) | DRG 482 ==
LOC: ER 09:19 → MS 10:10
PROVIDERS: Student in an Organized Health Care Education/Training Program; Admitting Provider Family Medicine; Emergency Provider Emergency Medicine; PCP Student in an Organized Health Care Education/Training Program; Responsible Provider Family Medicine; Visit Provider Family Medicine
PROC: 0QS734Z Reposition Left Upper Femur with Internal Fixation Device, Percutaneous Approach (ICD-10-PCS; CPT 27235; principal; 2024-08-13 15:15)
DX: S72.012A Unspecified intracapsular fracture of left femur, initial encounter for closed fracture (principal); I10 Essential (primary) hypertension; K21.00 Gastro-esophageal reflux disease with esophagitis, without bleeding; W19.XXXA Unspecified fall, initial encounter; E78.5 Hyperlipidemia, unspecified; F51.01 Primary insomnia; M54.50 Low back pain, unspecified; R26.89 Other abnormalities of gait and mobility; G43.409 Hemiplegic migraine, not intractable, without status migrainosus; N39.3 Stress incontinence (female) (male)
CPT/HCPCS: 27235; 00123; 36415; 51702; 73552; 80048; 80053; 85027; 96365; 96375; 97110; 97162; 97530; 99222; 99285; J1650; 70450; 72125; 72170; 72192; 73501; 81003; 81015; 83735; 85025; 99223; J0131; J0690; J1171; J1885; J2003; J2270; J2371; J2704; J3010; J3475

== ENCOUNTER → 2024-08-19 08:21 | Outpatient (BNVA) | payer MEDICARE, SELFPAY | PROVIDERS: PCP Student in an Organized Health Care Education/Training Program; Referring Provider Student in an Organized Health Care Education/Training Program; Visit Provider Psychiatry & Neurology Neurology | DX: M48.02 Spinal stenosis, cervical region (principal); R26.89 Other abnormalities of gait and mobility; R29.2 Abnormal reflex; G43.409 Hemiplegic migraine, not intractable, without status migrainosus | CPT/HCPCS: 99215 ==

== ENCOUNTER 2024-08-25 11:28 | Outpatient (CLI) | payer OTHER, SELFPAY ==
--- NOTE | 2024-08-25 11:16 | DI.RAD_ITS ---
Exam(s) XR HIP LT COMPLETE AP PELVIS EXAM: XR HIP LT COMPLETE AP PELVIS INDICATION: F/U FRACTURE. COMPARISON: XA XR HIP LT IN OR from 08/13/[address] PELVIC WO from 08/13/2024 TECHNIQUE: 2D digital imaging was performed. Two views. FINDINGS: Three partially threaded screws are again noted through the left femoral head and neck for fracture fixation. There has been no change in fracture alignment which is anatomic. DATA REPOSITORY: RADIATION DOSE DELIVERED:
== END 2024-08-25 11:29 | disposition home or self-care (01) ==
LOC: DIORS 11:28
PROVIDERS: PCP Student in an Organized Health Care Education/Training Program; Visit Provider Student in an Organized Health Care Education/Training Program
DX: S72.002A Fracture of unspecified part of neck of left femur, initial encounter for closed fracture (principal)
CPT/HCPCS: 73502

== ENCOUNTER 2024-09-28 12:59 | Outpatient (REF) | payer MEDICARE, SELFPAY ==
[2024-09-28 15:57] LABS: Abs Immature Grans 0.02 10^3/uL (0.0-0.06); HCT 38.3 % (36.0-46.0); HGB 12.7 g/dL (11.2-15.7); Immature Grans % 0.3 %; MCH 28.9 pg (27.0-33.0); MCHC 33.2 % (32.0-36.0); MCV 87 fL (80-95); MPV 10.1 fL (8.0-11.0); Platelet Count 229 10^3/uL (130-400); RBC 4.39 10^6/uL (3.93-5.22); RDW 12.9 % (11.7-14.6); RDW-SD 40.6 fL; WBC 5.88 10^3/uL (4.4-10.8)
[2024-09-28 16:32] LABS: ALT 20 U/L (14-59); AST 15 U/L (15-37); Albumin 4.2 g/dL (3.4-5.0); Alkaline Phosphatase 105 U/L (46-116); Anion Gap 12.6 mmol/L (3-11); BUN 14 mg/dL (7-18); Bilirubin, Total 0.5 mg/dL (0.2-1.0); CO2 24.4 mmol/L (21.0-32.0); Calcium 9.3 mg/dL (8.5-10.1); Chloride 104 mmol/L (98-107); Estimated GFR 91.83 (mL/min/1.73m2); Glucose 93 mg/dL (74-106); NT-proBNP 106 pg/mL (<300); Potassium 4.1 mmol/L (3.5-5.1); Sodium 141 mmol/L (136-145); TSH (W/Ref FT4) 2.29 uIU/mL (0.36-3.74); Total Protein 7.0 g/dL (6.4-8.2); Uric Acid 6.5 mg/dL (2.6-6.0)
[2024-09-28 17:24] LABS: Vitamin B12 376 pg/mL (193-986)
[2024-09-29 10:30] LABS: Lyme Ab w Rflx to Lyme Confirm Negative (Negative)
== END 2024-09-28 13:00 | disposition home or self-care (01) ==
LOC: NCHCN 12:59
PROVIDERS: PCP Student in an Organized Health Care Education/Training Program; Visit Provider Student in an Organized Health Care Education/Training Program
DX: M25.562 Pain in left knee (principal); R53.83 Other fatigue; R01.1 Cardiac murmur, unspecified
CPT/HCPCS: 80053; 82607; 83880; 84443; 84550; 85025; 86618

== ENCOUNTER 2024-10-06 11:34 | Outpatient (CLI) | payer OTHER, MEDICARE, SELFPAY ==
--- NOTE | 2024-10-06 10:45 | DI.RAD_ITS ---
Exam(s) XR HIP LT COMPLETE AP PELVIS EXAM: XR HIP LT COMPLETE AP PELVIS CLINICAL HISTORY: F/U FRACTURE. TECHNIQUE: 2D digital imaging was performed. Two images were obtained. AP pelvis and lateral left hip views were obtained. COMPARISON: CR XR HIP LT COMPLETE AP PELVIS from 08/25/2024 FINDINGS: BONES: There are stable post operative changes of internal fixation of the subcapital left femoral fracture present. There is some callus formation about the fracture suggesting some interval healing. There has been no change in alignment. No new fracture or dislocation. JOINTS: There is marked arthrosis of the right hip. SOFT TISSUE: Normal. IMPRESSION: Stable postoperative changes. DATA REPOSITORY: RADIATION DOSE DELIVERED:
== END 2024-10-06 11:35 | disposition home or self-care (01) ==
LOC: DIORS 11:34
PROVIDERS: PCP Student in an Organized Health Care Education/Training Program; Visit Provider Student in an Organized Health Care Education/Training Program
DX: S72.002A Fracture of unspecified part of neck of left femur, initial encounter for closed fracture (principal); X58.XXXA Exposure to other specified factors, initial encounter
CPT/HCPCS: 99024; 73502

== ENCOUNTER 2024-10-16 00:18 | Outpatient (CLI) | payer MEDICARE, SELFPAY ==
--- NOTE | 2024-10-16 08:30 | DI.US_ITS ---
APPROVED REPORT EXAM: Comprehensive 2D, Doppler, and color-flow Echocardiogram Patient Location: Out-Patient Front Desk Agent: Francisca Guevara RDCS (AE) Indications: Cardiac murmur, Increased fatigue Other Information Study Quality: Fair. Technically limited study due to body habitus, inability to position patient, hip fracture unable to go LLD. Conclusion Technically limited study Normal left ventricular wall thickness chamber size and systolic function. Ejection fraction is 55%. Wall motion is normal Normal right ventricular size and function Both atria are normal in size There are no structural valvular abnormalities Mild mitral regurgitation Wall motion Left Ventricle Technically limited imaging, unable to position patient. The left ventricular systolic function is normal. The left ventricular ejection fraction is within the normal range. There is normal LV segmental wall motion. There is no ventricular septal defect visualized. LVEF is 55%. Right Ventricle Right ventricle is not well visualized. Right ventricular systolic function could not be assessed. Atria Left atrium is not well visualized. Right atrium is not well visualized. The interatrial septum is intact with no evidence for an atrial septal defect. Aortic Valve The aortic valve is normal in structure. There is no aortic valvular stenosis. No aortic regurgitation is present. Mitral Valve The mitral valve is normal in structure. No evidence of mitral valve stenosis. Mild mitral regurgitation. Tricuspid Valve The tricuspid valve is normal in structure. There is no tricuspid valve stenosis. Trace tricuspid regurgitation. Unable to assess PA pressure. Pulmonic Valve The pulmonary valve is normal in structure. There is no pulmonic valvular stenosis. There is no pulmonic valvular regurgitation. Great Vessels The aortic root is normal in size. Ascending aorta is not well visualized. Aortic arch is normal in caliber. IVC is normal in size and collapses >50% with inspiration. Pericardium There is no pericardial effusion. 2D Dimensions Ao Root d 2.76 cm F: 2.7 - 3.3 Auto EF LV EDV A4C 100.1 mL LV EDV A2C 104.8 mL LV EDV BP 102.9 mL LV ESV A4C 45.2 mL LV ESV A2C 47.0 mL LV ESV BP 46.0 mL LVEF(%) A4C 54.8 % LVEF(%) A2C 55.2 % LVEF(%) BP 55.3 % LV SV A4C 54.9 ml LV SV A2C 57.9 ml LV SV BP 56.9 ml LV CO A4C 4.3 L/min LV CO A2C 4.1 L/min LV CO BP 4.2 L/min HR A4C 78.78 BPM HR A2C 71.15 BPM LV EDV Index (BP) LV Diastology MV E Vmax 0.61 (0.4-1.3 m/s) MV A Vmax 0.65 (0.4-1.3 m/s) E/A Ratio 0.9 Aortic Valve AoV Vmax 1.05 m/s LVOT Vmax 0.64 m/s AoV Peak Grad 4.4 mmHg LVOT Peak Grad 1.6 mmHg AoV Area (Vmax) 1.70 cm2 LVOT VTI 0.122 m AoV VTI 0.220 m LVOT Mean Grad 0.9 mmHg AoV Mean Lico. 0.80 m/s LVOT SV 34.40 mL AoV Mean Grad 2.7 mmHg LVOT Diam s 1.85 cm AoV Area (VTI) 1.57 cm2 AV Regurg Peak Gr. 4.43 mmHg Velocity Ratio 0.61 Mitral Valve MV DT 272 (160-240 msec) MV Vmax TIPS 0.87 m/s MV Mean Grad 1.4 (<2mmHg) MV VTI 0.215 m Pulmonary Valve PV Vmax 0.84 (0.5-1.5 m/s) RVOT Vmax 0.52 m/s PV Peak Grad 2.8 mmHg RVOT Peak Gr. 1.1 mmHg PV Mean Lico 0.58 m/s RVOT VTI 0.112 m PV Mean Grad 1.6 mmHg RVOT Mean Gr. 0.6 mmHg
== END 2024-10-16 00:38 ==
LOC: DI 00:18
PROVIDERS: PCP Student in an Organized Health Care Education/Training Program; Visit Provider Student in an Organized Health Care Education/Training Program
DX: R01.1 Cardiac murmur, unspecified (principal)
CPT/HCPCS: 93306

== ENCOUNTER 2024-10-29 17:44 | Outpatient (REF) | payer MEDICARE, SELFPAY ==
[2024-10-29 19:40] LABS: COMMENT (LAB VIEW ONLY) 17.19 mg/dL; Microalb ug/mg Crea 26.8 ug/mg Cr
== END 2024-10-29 17:45 | disposition home or self-care (01) ==
LOC: NCHCN 17:44
PROVIDERS: PCP Student in an Organized Health Care Education/Training Program; Visit Provider Student in an Organized Health Care Education/Training Program
DX: I10 Essential (primary) hypertension (principal)
CPT/HCPCS: 82043; 82570

== ENCOUNTER 2024-11-18 10:54 | Outpatient (CLI) | payer OTHER, MEDICARE, SELFPAY ==
--- NOTE | 2024-11-18 08:15 | DI.RAD_ITS ---
Exam(s) XR HIP LT AP LAT ONLY EXAM: XR HIP LT AP LAT ONLY CLINICAL HISTORY: evluate fracture. TECHNIQUE: 2D digital imaging was performed. COMPARISON: CR XR HIP LT COMPLETE AP PELVIS from 10/06/2024 FINDINGS: Two views Three threaded screws are again noted across the subcapital fracture site of the left hip. Appearance is unchanged no displacement of the fracture fragments. No screw movement and no abnormal lucency at the hardware-bone interface. There is no hip joint space narrowing on this side. IMPRESSION: Stable satisfactory appearance of left hip DATA REPOSITORY: RADIATION DOSE DELIVERED:
== END 2024-11-18 10:55 | disposition home or self-care (01) ==
LOC: DIORS 10:54
PROVIDERS: PCP Student in an Organized Health Care Education/Training Program; Visit Provider Student in an Organized Health Care Education/Training Program
DX: S72.002A Fracture of unspecified part of neck of left femur, initial encounter for closed fracture (principal)
CPT/HCPCS: 73502

== ENCOUNTER 2024-11-20 15:01 | Outpatient (CLI) | payer MEDICARE, SELFPAY ==
--- NOTE | 2024-11-20 15:55 | DI.RAD_ITS ---
Exam(s) XR KNEE LT 3V AP,LAT,LIDIA EXAM: XR KNEE LT 3V AP,LAT,LIDIA CLINICAL HISTORY: PAIN LEFT KNEE M25.562 ARTHRALGIA LEFT KNEE. TECHNIQUE: 2D digital imaging was performed. COMPARISON: No exams were available for comparison FINDINGS: Four views No evidence fractureh but there does appear to be a joint effusion signifying internal derangement. On the weight-bearing view there is [id number] narrowing of the lateral compartment. Mild valgus deformity. Medial compartment exhibits normal height. Some degenerative change is also noted in the patellofemoral compartment. Bone density normal. No osseous lesions. IMPRESSION: Significant osteoarthritic [id number] narrowing of the lateral compartment Joint effusion which may also significant the presence of an independent internal derangement. DATA REPOSITORY: RADIATION DOSE DELIVERED:
== END 2024-11-20 15:21 ==
PROVIDERS: PCP Student in an Organized Health Care Education/Training Program; Visit Provider Student in an Organized Health Care Education/Training Program
DX: M25.562 Pain in left knee (principal)
CPT/HCPCS: 73562

== ENCOUNTER 2024-11-26 16:05 | Outpatient (CLI) | payer MEDICARE, SELFPAY ==
[2024-11-26 15:52] LABS: HCT 38.8 % (36.0-46.0); HGB 12.9 g/dL (11.2-15.7); MCH 29.1 pg (27.0-33.0); MCHC 33.2 % (32.0-36.0); MCV 87 fL (80-95); MPV 9.3 fL (8.0-11.0); Platelet Count 243 10^3/uL (130-400); RBC 4.44 10^6/uL (3.93-5.22); RDW 13.2 % (11.7-14.6); RDW-SD 41.9 fL; WBC 5.88 10^3/uL (4.4-10.8)
[2024-11-26 16:02] LABS: ESR 11 mm/hr (0-30)
[2024-11-26 16:10] LABS: ALT 18 U/L (14-59); AST 13 U/L (15-37); Albumin 4.0 g/dL (3.4-5.0); Alkaline Phosphatase 85 U/L (46-116); Anion Gap 10.5 mmol/L (3-11); BUN 15 mg/dL (7-18); Bilirubin, Total 0.4 mg/dL (0.2-1.0); CO2 23.5 mmol/L (21.0-32.0); Calcium 9.2 mg/dL (8.5-10.1); Chloride 105 mmol/L (98-107); Estimated GFR 91.83 (mL/min/1.73m2); Glucose 85 mg/dL (74-106); Potassium 3.7 mmol/L (3.5-5.1); Sodium 139 mmol/L (136-145); Total Protein 7.1 g/dL (6.4-8.2); Uric Acid 5.6 mg/dL (2.6-6.0)
[2024-11-26 16:12] LABS: C-Reactive Protein < 0.50 mg/dL (<or=0.5)
== END 2024-11-26 16:06 | disposition home or self-care (01) ==
LOC: LBO 16:05
PROVIDERS: PCP Student in an Organized Health Care Education/Training Program; Visit Provider Student in an Organized Health Care Education/Training Program
DX: M25.562 Pain in left knee (principal)
CPT/HCPCS: 36415; 80053; 85027; 85652; 84550; 86140

== ENCOUNTER 2024-12-07 07:06 | Emergency (ER) | payer MEDICARE, SELFPAY ==
[2024-12-07 07:14] VITALS: BP 142/75; PULSE 81; RESP 18; O2SAT 98
--- NOTE | 2024-12-07 07:15 | DI.RAD_ITS ---
Exam(s) XR PELVIS AP XR FEMUR RT EXAM: XR PELVIS AP and XR femur RT CLINICAL HISTORY: fall, lateral hip and thigh pain. TECHNIQUE: 2D digital imaging was performed.Five images were obtained. COMPARISON: CR XR FEMUR LT from 08/13/2024 CR XR PELVIS AP from 08/13/2024 CR XR HIP LT COMPLETE AP PELVIS from 08/25/2024 CR XR HIP LT COMPLETE AP PELVIS from 10/06/2024 CR XR HIP LT AP LAT ONLY from 11/18/2024 FINDINGS: BONES: There is cortical disruption noted at the lateral aspect of the base of the right femoral neck suspicious for nondisplaced fracture. No bony destructive lesion is seen. There are postsurgical changes again seen with internal fixation of an old left femoral neck fracture. JOINTS: No dislocation present. There are marked degenerative changes seen at the right hip characterized by joint space narrowing and osteophytes arising from both the acetabulum and the femoral head. SOFT TISSUE: Normal. IMPRESSION: 1. Question of a nondisplaced fracture involving the lateral aspect of the base of the right femoral neck. CT scan of the right hip is recommended for further evaluation. 2. Findings were discussed with Dr. Davies at 9:46 a.m. on 12/07/2024. DATA REPOSITORY: RADIATION DOSE DELIVERED:
--- NOTE | 2024-12-07 07:15 | DI.RAD_ITS ---
Exam(s) XR KNEE RT 3V AP,LAT,LIDIA EXAM: XR KNEE RT 3V AP,LAT,LIDIA CLINICAL HISTORY: fall, lateral pain. TECHNIQUE: 2D digital imaging was performed of the right knee. Three views obtained. AP, lateral and PA tunnel views were obtained. COMPARISON: There are no priors for comparison. FINDINGS: BONES: No acute fracture is present. No bony destructive lesion is seen. JOINTS: The knee is normally aligned. No joint effusion is seen. SOFT TISSUE: Normal. IMPRESSION: Unremarkable radiographs of the right knee. DATA REPOSITORY: RADIATION DOSE DELIVERED:
--- NOTE | 2024-12-07 07:29 | ED.GENADUL_ITS ---
Discharge Plan Disposition Patient Disposition: Home Condition: Stable Discharge Details Clinical Impression: Contusion of hip, right, Abrasion of knee, right, Fall Primary Care Provider: Andres Basurto ED Provider: Delia Cruz Home Meds and New Rx's Prescriptions: No Action Probiotic 3 billion cell capsule 3,000 mmu cells PO DAILY Rx Instructions: administer with a meal ibuprofen 200 mg tablet 200 mg PO Q6H PRN acetaminophen 500 mg capsule 500 mg PO Q6H PRN ascorbic acid (vitamin C) 250 mg tablet 250 mg PO DAILY atorvastatin 40 mg tablet 40 mg PO DAILY magnesium oxide 500 mg capsule 500 mg PO DAILY pantoprazole 40 mg tablet,delayed release (DR/EC) 40 mg PO DAILY zinc glycinate 20 mg capsule 20 mg PO DAILY aspirin 81 mg tablet 81 mg PO BID Qty: 60 0RF escitalopram oxalate 10 mg tablet 10 mg PO DAILY Discharge Instructions Instructions: Minor Contusion ED Additional Instructions: You were seen in the emergency department today for evaluation after a fall. In our department he had a full physical examination performed and had x-ray imaging that did not show any sign of fracture or dislocations. You likely have bad bruising and scrapes, and also have some evidence of arthritis changes in your knee and your hip. Please use therapeutic dosing of Tylenol (acetaminophen) & Advil (ibuprofen) in an alternating fashion as follows: Take 1000mg of Tylenol every 6 hours without missing doses- that is 4 times per day. [place] in between the Tylenol doses, take 600mg of Advil also on a 6 hour schedule, that is also 4 times per day. With this strategy, you will be taking something for fever/pain as often as every 3 hours. The daily maximum dosing of Tylenol is 4000mg, and the daily maximum dosing of Advil is 2400mg. Please note that some common cold medications & prescription pain medications may contain acetaminophen and you need to read OTC drug labels and factor that in to maximum daily doses. Please follow-up with your primary care provider in the next few days to discuss this visit and any symptoms that change, worsen, or persist. Thank you for allowing us to be part of your care. Stand Alone Forms: Work Release HPI General Mode of arrival: ambulatory . Date/Time Provider Initiated Documentation: 12/07/24 07:13 . Limitations to Documentation: no limitations . Information obtained by: patient and old records reviewed . HPI Narrative: This is a 74-year-old female patient with a past medical history significant for left hip fracture status post replacement, presenting for evaluation after a fall. 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 She reports that she did not have any preceding dizziness or change in her balance, did not strike her head, and did not lose consciousness. She does not take blood thinning medications. The patient was able to walk after this event but was having pain in the lateral aspect of her right hip and thigh, and has some abrasion with tenderness in her right knee. Bearing weight made this pain worse. She took 2 Tylenol prior to arrival without significant improvement. Denies numbness or tingling distal to this injury. The patient is not experiencing any neck or back pain, and did not injure any other part of her body. She was in her normal state of health prior to this event. Related Data Home Medications ?Medication ?Instructions ?Recorded ?Confirmed ascorbic acid (vitamin C) 250 mg 250 mg PO DAILY 03/0312/07/24 tablet atorvastatin 40 mg tablet 40 mg PO DAILY 03/03/2408/26 magnesium oxide 500 mg capsule 500 mg PO DAILY 4 12/07/24 pantoprazole 40 mg tablet,delayed 40 mg PO DAILY 03/0312/07/24 release zinc glycinate 20 mg capsule 20 mg PO DAILY 03/03/24 1 aspirin 81 mg tablet 81 mg PO BID prevent blood c lot 08/14/24 12/07/24 #60 tabs escitalopram oxalate 10 mg tablet 10 mg PO DAILY 08/1712/07/24 lactobacillus combination no.4 3 3,000 mmu cells PO DA JUANI 08/25/24 12/07/24 billion cell capsule (Probiotic) acetaminophen 500 mg capsule 500 mg PO Q6H PRN 5 12/07/24 ibuprofen 200 mg tablet 200 mg PO Q6H PRN 09/10/24 1 Previous Rx's ?Medication ?Instructions ?Recorded aspirin 81 mg tablet 81 mg PO BID prevent blood c lot 08/14/24 #60 tabs Allergies Allergy/AdvReac Type Severity Reaction Status Date / Time No Known Allergies Allergy Verified 12/07/24 07:17 General Stated Complaint: Orthopedic SHANIQUA: 3 Exam Narrative Exam Narrative: Gen: Awake and alert, in no apparent distress HEENT: Non-icteric sclera, PERRL, scalp atraumatic, facial bones stable Neck: Supple, no cervical spine tenderness or step-offs, full range of motion Lungs: No apparent respiratory distress, normal respiratory effort. CV: Appears well perfused, strong distal pulses, heart with regular rate and rhythm Abdomen: Non-distended, soft, nontender MSK: Moves 4 extremities without apparent limitation in ROM. The patient has no T or L-spine tenderness, pelvis stable to AP compression but tender over the lateral aspect of the right hip down into the proximal right lateral thigh. No overlying skin changes or deformities. The patient does have lateral abrasions to the right knee, no palpable joint effusion, she is able to flex and extend both the hip and the knee spontaneously and without pain with passive range of motion. Pain is reproduced with external rotation of the right hip. Skin: Visualized skin without rashes, cyanosis. Neuro: No obvious focal deficits or facial asymmetry. Speaks in full, clear sentences. CSM's distal to the injury intact Psych: Appropriate for situation. Course Vital Signs Vital signs: Vital Signs Pulse 81 12/07/24 07:14 Respiratory Rate 18 12/07/24 07:14 Blood Pressure 142/75 H 12/07/24 07:14 Pulse Oximetry 98 12/07/24 07:14 Pulse 81 12/07/24 07:14 Respiratory Rate 18 12/07/24 07:14 Blood Pressure 142/75 H 12/07/24 07:14 Pulse Oximetry 98 12/07/24 07:14 Oxygen Delivery Method Room Air 12/07/24 07:14 Oxygen Flow Rate 0 12/07/24 07:14 Medical Decision Making This is a 74-year-old female patient presenting for evaluation after a fall. Differential includes but is not limited to hip fracture, femur fracture, contusion, dislocation, sprain/strain. No evidence on my exam for neurovascular derangement. Certainly considered knee injury including fracture, dislocation, ligamentous injury, contusion. The fall was mechanical in nature and did not have any preceding medical complaints to increase my concern for orthostasis, syncope, arrhythmia, stroke. This is a reassuringly isolated injury without evidence of comorbid head, neck, back, or intrathoracic/intra-abdominal injury. I will provide the patient with a dose of ibuprofen, and obtain x-rays of the affected pelvis, right femur, and right knee. - I reviewed the patient's x-ray imaging as well as the radiology reports. There is no evidence of fracture or dislocation, patient does have degenerative changes in these joints. She likely experienced contusions due to her fall. The patient states that her pain has improved. I counseled her on conservative pain management, and at this time, the patient has had a full medical evaluation and is safe for discharge to home. They are hemodynamically stable, ambulatory, and tolerating PO. They are understanding of the follow-up plan and return precautions. They left our facility without incident. Delia Cruz MD [facility] All Active Problems (Updated 12/07/24 @ 09:17 by Delia Cruz MD) Fall (Acute) Abrasion of knee, right (Acute) Contusion of hip, right (Acute) Skull mass (Acute) Fracture of femoral neck, left (Acute 08/13/24) Cervical spinal stenosis (Acute) Fall (Acute) Sinus disease (Acute) Hemiplegic migraine (Acute) Babinski sign positive in left foot (Acute) Balance disorder (Acute) Medical History (Updated 12/07/24 @ 09:17 by Delia Cruz MD) Kidney stones Sprain of right wrist Leg weakness, bilateral Abnormal mammography Nausea and vomiting Cough Osteoporosis Proximal muscle weakness Back pain Gastroenteritis Upper respiratory infection Depressive disorder Vitamin D deficiency Menopause present Cramps of lower extremity Low back pain Female stress incontinence Colitis GERD with esophagitis Essential hypertension Migraine without aura Migraine with aura Primary insomnia Hyperlipidemia Surgical History (Updated 09/10/24 @ 10:13 by Zack Vargas MD) History of tonsillectomy and adenoidectomy H/O esophagogastroduodenoscopy S/P hysterectomy S/P cholecystectomy Family History (Updated 08/17/24 @ 08:45 by Shantell Catherine) Father Diabetes Heart disease Mother Heart disease Sister Heart disease Arthritis Brother Heart disease Social History Smoking/Tobacco Use Status: Never Smoking risk assessment performed?: Yes Alcohol Intake: never Drug use: Never Substance use type: does not use Household members: none Housing: house Number of Children: 2 current occupation: Childcare provider What is your relationship status?: Panel score (0-1 are the most socially isolated patients): 0
[2024-12-07] MEDS: Ibuprofen 600 MG TAB PO (07:53)
[2024-12-07] MEDS: Lidocaine 5% Patch 1 PATCH TP (09:01)
--- NOTE | 2024-12-07 09:08 | DI.VRAD_ITS ---
PROCEDURE INFORMATION: Exam: XR Right Knee Exam date and time: 12/07/2024 7:47 AM Age: 74 years old Clinical indication: Injury or trauma; Fall; Blunt trauma; Knee; Right TECHNIQUE: Imaging protocol: Radiologic exam of the right knee. Views: 3 views. COMPARISON: No relevant prior studies available. FINDINGS: Bones/joints: No fractures are identified. Alignment is anatomic. Joint spaces are maintained. No joint effusion is seen. Soft tissues: No acute abnormality. IMPRESSION: No fracture or malalignment in the right knee. Dictated and Authenticated by: Nafisa Gloria MD. Order[facility] Lin MD
--- NOTE | 2024-12-07 09:10 | DI.VRAD_ITS ---
PROCEDURE INFORMATION: Exam: XR Pelvis Exam date and time: 12/07/2024 7:51 AM Age: 74 years old Clinical indication: Injury or trauma; Blunt trauma (contusions or hematomas); Right; Fall, lateral hip/thigh pain TECHNIQUE: Imaging protocol: Radiologic exam of the pelvis. Views: 1 view. COMPARISON: CR XR HIP LT COMPLETE AP PELVIS 10/06/2024 11:02 AM FINDINGS: Bones/joints: No fracture is identified in the pelvis. Again noted are postsurgical changes from prior open reduction and internal fixation of a left femoral neck fracture. There are changes of moderately advanced osteoarthritis in the right hip. Lower lumbar spondylosis is noted. Soft tissues: No acute abnormality. IMPRESSION: No fracture identified in the pelvis. Dictated and Authenticated by: Nafisa Gloria MD. Order[facility] Lin MD
--- NOTE | 2024-12-07 09:13 | DI.VRAD_ITS ---
PROCEDURE INFORMATION: Exam: XR Right Femur Exam date and time: 12/07/2024 7:52 AM Age: 74 years old Clinical indication: Injury or trauma; Blunt trauma; Thigh or upper leg; Right; Fall, lat hip/thigh pain TECHNIQUE: Imaging protocol: Radiologic exam of the right femur. Views: 2 views. COMPARISON: No relevant prior studies for comparison. FINDINGS: Bones/joints: No fracture is identified in the right femur. Soft tissues: Unremarkable. IMPRESSION: No fracture identified in the right femur. Dictated and Authenticated by: Nafisa Gloria MD. Orderin [facility] Lin MD
== END 2024-12-07 09:27 | disposition home or self-care (01) ==
PROVIDERS: Emergency Provider Emergency Medicine; PCP Student in an Organized Health Care Education/Training Program
DX: S70.01XA Contusion of right hip, initial encounter (principal); S80.211A Abrasion, right knee, initial encounter; W19.XXXA Unspecified fall, initial encounter
CPT/HCPCS: 99283; 99284; 73552; 73562; 72170

== ENCOUNTER 2024-12-07 10:06 | Inpatient (IN) | payer OTHER, SELFPAY ==
--- NOTE | 2024-12-07 10:00 | DI.CT_ITS ---
Exam(s) CT PELVIC WO EXAM: CT PELVIC WO CLINICAL HISTORY: ? R. femoral neck fracture. TECHNIQUE: Imaging Protocol: Axial computed tomography images with coronal and sagittal reformatted images were created and reviewed. COMPARISON: CT CT PELVIC WO from 08/13/2024 CR,XR XR PELVIS AP from 12/07/2024 FINDINGS: Bones: There is offset of the cortex at the lateral aspect of the base of the femoral neck (series 12 image 40 and 41 and series 14 images 23 through 25). The findings are suspicious for nondisplaced fracture. Bony alignment is satisfactory. No cellulitic or osteomyelitic changes are identified. There are degenerative changes seen at the right hip characterized by joint space narrowing and osteophytes. Subchondral cysts are also noted in the acetabular roof. There are degenerative changes seen in the lumbosacral spine. There are 3 orthopedic screws seen transfixing an old healed left femoral neck fracture. Soft Tissues: Atherosclerotic calcification is present. There is mild edema seen in the soft tissues lateral to the right greater trochanter. IMPRESSION: Cortical offset at the base of the right femoral neck suspicious for nondisplaced fracture. Confirmatory MRI may be considered for further evaluation. RADIATION DOSE DELIVERED: 206.67mGy.cm Total DLP 206.67mGy.cmTotal DLP 206.67mGy.cmTotal DLP DATA REPOSITORY: All CT scans at this facility are submitted to the National Radiology Data Registry (NRDR) Dose Index Registry (DIR) with the [employer] (A[employer]). RADIATION OPTIMIZATION: All CT scans at this facility use at least one of these dose optimization techniques: automated exposure control; mA and/or kV adjustment per patient size (includes targeted exams where dose is matched to clinical indication); or iterative reconstruction.
[2024-12-07 10:11] VITALS: BP 134/76; PULSE 81; RESP 18; TEMP 36.3; O2SAT 96
--- NOTE | 2024-12-07 10:32 | W.ED.GENAD ---
Discharge Plan Disposition Patient Disposition: Admit to [facility] Condition: Stable Discharge Details Clinical Impression: Closed fracture of neck of right femur Primary Care Provider: Andres Basurto ED Provider: Delia Cruz Home Meds and New Rx's Prescriptions: No Action Probiotic 3 billion cell capsule 3,000 mmu cells PO DAILY Rx Instructions: administer with a meal ibuprofen 200 mg tablet 200 mg PO Q6H PRN acetaminophen 500 mg capsule 500 mg PO Q6H PRN ascorbic acid (vitamin C) 250 mg tablet 250 mg PO DAILY atorvastatin 40 mg tablet 40 mg PO DAILY magnesium oxide 500 mg capsule 500 mg PO DAILY pantoprazole 40 mg tablet,delayed release (DR/EC) 40 mg PO DAILY zinc glycinate 20 mg capsule 20 mg PO DAILY aspirin 81 mg tablet 81 mg PO BID Qty: 60 0RF escitalopram oxalate 10 mg tablet 10 mg PO DAILY HPI General Mode of arrival: ambulatory. Date/Time Provider Initiated Documentation: 12/07/24 10:11. Limitations to Documentation: no limitations. Information obtained by: patient, family and old records reviewed. HPI Narrative: This is a 74-year-old female patient seen in the emergency department earlier today after a fall with right hip pain. Her preliminary V rad's report noted no fractures, the patient was ambulatory and discharged home. Shortly afterwards I received a call from the radiologist stating that he noted a new cortical defect in the lateral femoral neck on that right side, and recommended CT to better evaluate for potential fracture. The patient was contacted by phone and return to care, states that she has not had any change in her health or symptoms since her discharge. She remains without numbness, tingling, or weakness distal to the injury, pain is controlled. Related Data Home Medications ?Medication ?Instructions ?Recorded ?Confirmed ascorbic acid (vitamin C) 250 mg 250 mg PO DAILY 03/03/24 12/07/24 tablet atorvastatin 40 mg tablet 40 mg PO DAILY 03/03/24 12/07/24 magnesium oxide 500 mg capsule 500 mg PO DAILY 03/03/24 12/07/24 pantoprazole 40 mg tablet,delayed 40 mg PO DAILY 03/03/24 12/07/24 release zinc glycinate 20 mg capsule 20 mg PO DAILY 03/03/24 12/07/24 aspirin 81 mg tablet 81 mg PO BID prevent blood clot 08/14/24 12/07/24 #60 tabs escitalopram oxalate 10 mg tablet 10 mg PO DAILY 08/17/24 12/07/24 lactobacillus combination no.4 3 3,000 mmu cells PO DAILY 08/25/24 12/07/24 billion cell capsule (Probiotic) acetaminophen 500 mg capsule 500 mg PO Q6H PRN 09/10/24 12/07/24 ibuprofen 200 mg tablet 200 mg PO Q6H PRN 09/10/24 12/07/24 Previous Rx's ?Medication ?Instructions ?Recorded aspirin 81 mg tablet 81 mg PO BID prevent blood clot 08/14/24 #60 tabs Allergies Allergy/AdvReac Type Severity Reaction Status Date / Time No Known Allergies Allergy Verified 12/07/24 07:17 General Stated Complaint: Recheck SHANIQUA: 4 Exam Narrative Exam Narrative: Gen: Awake and alert, in no apparent distress HEENT: Non-icteric sclera Neck: Supple Lungs: No apparent respiratory distress, normal respiratory effort. CV: Appears well perfused Abdomen: Non-distended MSK: Moves 4 extremities without apparent limitation in ROM. Lateral right hip pain persists without limitation in range of motion Skin: Visualized skin without rashes, cyanosis. Neuro: Normal Gait, no obvious focal deficits or facial asymmetry. Speaks in full, clear sentences. Psych: Appropriate for situation. Course Vital Signs Vital signs: Vital Signs Temperature 36.3 C L 12/07/24 10:11 Pulse 81 12/07/24 10:11 Respiratory Rate 18 12/07/24 10:11 Blood Pressure 134/76 12/07/24 10:11 Pulse Oximetry 96 12/07/24 10:11 Temperature 36.3 C L 12/07/24 10:11 Temperature Source Oral 12/07/24 10:11 Pulse 81 12/07/24 10:11 Respiratory Rate 18 12/07/24 10:11 Blood Pressure 134/76 12/07/24 10:11 Blood Pressure Position Sitting 12/07/24 10:11 Pulse Oximetry 96 12/07/24 10:11 Oxygen Delivery Method Room Air 12/07/24 10:11 Oxygen Flow Rate 0 12/07/24 10:11 Pain Level 7 12/07/24 10:11 Medical Decision Making This is a 74-year-old female patient presenting for reevaluation of right hip injury after a fall this morning. Please see my initial note for full details of this patient's encounter. Differential includes but is not limited to femoral neck fracture, contusion, hematoma, sprain/strain. A CT of the pelvis without contrast was ordered. The patient does not require any medications for management of pain at this time. - CT scan reviewed by myself, as well as the radiology report. She has evidence of a cortical defect of the right femoral neck concerning for a nondisplaced fracture. Dr. Reeves with orthopedics was consulted and evaluated the patient at bedside. His recommendation is for admission to the hospitalist team with a plan for surgical intervention tomorrow. I discussed the case with Dr. Hyman who has graciously accepted this patient for admission to his service. Reoperative labs including CBC and BMP were ordered. The patient was transferred to the care of the hospitalist team without incident and remained hemodynamically appropriate while under my care. Delia Cruz MD [facility] All Active Problems (Updated 12/07/24 @ 12:31 by Delia Cruz MD) Closed fracture of neck of right femur (Acute) Fall (Acute) Abrasion of knee, right (Acute) Contusion of hip, right (Acute) Skull mass (Acute) Fracture of femoral neck, left (Acute 08/13/24) Cervical spinal stenosis (Acute) Fall (Acute) Sinus disease (Acute) Hemiplegic migraine (Acute) Babinski sign positive in left foot (Acute) Balance disorder (Acute) Medical History (Updated 12/07/24 @ 12:31 by Delia Cruz MD) Kidney stones Sprain of right wrist Leg weakness, bilateral Abnormal mammography Nausea and vomiting Cough Osteoporosis Proximal muscle weakness Back pain Gastroenteritis Upper respiratory infection Depressive disorder Vitamin D deficiency Menopause present Cramps of lower extremity Low back pain Female stress incontinence Colitis GERD with esophagitis Essential hypertension Migraine without aura Migraine with aura Primary insomnia Hyperlipidemia Surgical History (Updated 09/10/24 @ 10:13 by Zack Vargas MD) History of tonsillectomy and adenoidectomy H/O esophagogastroduodenoscopy S/P hysterectomy S/P cholecystectomy Family History (Updated 08/17/24 @ 08:45 by Shantell Catherine) Father Diabetes Heart disease Mother Heart disease Sister Heart disease Arthritis Brother Heart disease Social History Smoking/Tobacco Use Status: Never Smoking risk assessment performed?: Yes Alcohol Intake: never Drug use: Never Substance use type: does not use Household members: none Housing: house Number of Children: 2 current occupation: Childcare provider What is your relationship status?: Panel score (0-1 are the most socially isolated patients): 0
[2024-12-07 12:51] LABS: Abs Immature Grans 0.03 10^3/uL (0.0-0.06); HCT 43.8 % (36.0-46.0); HGB 14.6 g/dL (11.2-15.7); Immature Grans % 0.3 %; MCH 29.1 pg (27.0-33.0); MCHC 33.3 % (32.0-36.0); MCV 87 fL (80-95); MPV 9.5 fL (8.0-11.0); Platelet Count 193 10^3/uL (130-400); RBC 5.02 10^6/uL (3.93-5.22); RDW 12.5 % (11.7-14.6); RDW-SD 39.7 fL; WBC 11.11 10^3/uL (4.4-10.8)
--- NOTE | 2024-12-07 12:54 | W.ORTHOCONSU ---
Date of service: 12/07/24 History of Present Illness Narrative: Swathi is a 74-year-old female who has known osteoporosis and recent left femoral neck fracture who fell again today. She had some pain with weightbearing although she was able to place some weight on the right leg. This pain is around the groin and into the posterior aspect of the right hip. It is worsened with weightbearing and with certain positions of the right hip. She does report having osteoporosis but was awaiting confirmation from some of her other doctors before proceeding with any other additional medications. She denies any premorbid right hip pain. She has not sought any treatment for her right hip in the past. She denies numbness or tingling. Consults Consult date: 12/07/24 Requesting physician: Delia Cruz Consult Reason Right hip fracture Assessment and Plan Assessment and plan (1) Closed fracture of neck of right femur: Status: Acute Assessment and plan: Swathi is a 74-year-old female who had a fall earlier today with pain with weightbearing. She has a history of a left femoral neck fracture just 3 or so months ago. She has known osteoporosis. The irregularity seen on the CT scan is concerning for nondisplaced or incomplete fracture of the femoral neck. She does have severe arthritis about this right side but denies any significant pain in the right hip prior to this fall. I discussed treatment options with her. While she does have notable arthritis she does not have any preinjury pain about the right hip. Otherwise, I would think that hip replacement would be the best next step. However, without the preinjury pain I think stabilization with cannulated screws performed in a percutaneous manner makes complete sense. This to be the same thing she had on the left side which she has done very well from. Once again discussed this with her. I reviewed the potential risk to include malunion, nonunion, worsening arthritic pain or arthritis about the hip, hardware prominence, hardware failure, bursitis. Despite these risk, she elects to proceed. Given her osteoporosis and now 2 hip fractures in a matter of 3-1/2 months, I would recommend zoledronic acid before discharge based on excellent literature support of this during the hospitalization for the fracture. Plan for surgery tomorrow. N.p.o. after midnight. Review of Systems All systems reviewed & are unremarkable except as noted in HPI and below PFSH All Active Problems Closed fracture of neck of right femur (Acute) Fall (Acute) Abrasion of knee, right (Acute) Contusion of hip, right (Acute) Skull mass (Acute) Fracture of femoral neck, left (Acute 08/13/24) Cervical spinal stenosis (Acute) Fall (Acute) Sinus disease (Acute) Hemiplegic migraine (Acute) Babinski sign positive in left foot (Acute) Balance disorder (Acute) Medical History Kidney stones Sprain of right wrist Leg weakness, bilateral Abnormal mammography Nausea and vomiting Cough Osteoporosis Proximal muscle weakness Back pain Gastroenteritis Upper respiratory infection Depressive disorder Vitamin D deficiency Menopause present Cramps of lower extremity Low back pain Female stress incontinence Colitis GERD with esophagitis Essential hypertension Migraine without aura Migraine with aura Primary insomnia Hyperlipidemia Surgical History History of tonsillectomy and adenoidectomy H/O esophagogastroduodenoscopy S/P hysterectomy S/P cholecystectomy Family History Father Diabetes Heart disease Mother Heart disease Sister Heart disease Arthritis Brother Heart disease Social History Smoking/Tobacco Use Status: Never Smoking risk assessment performed?: Yes Alcohol Intake: never Drug use: Never Substance use type: does not use Household members: none Housing: apartment Number of Children: 2 current occupation: Childcare provider What is your relationship status?: Panel score (0-1 are the most socially isolated patients): 0 Exam Narrative Exam Narrative: Sitting up in the hospital stretcher. No acute distress. Alert and x 3. Head is normocephalic and atraumatic. Evaluation of the right lower extremity shows grossly normal positioning. There is no notable bruising seen about the right thigh. No skin defects. She is able to tolerate some passive range of motion of the right hip. Some decrease in pain with maximal external rotation, and to a lesser extent, internal rotation of flexion. Sensation intact to light touch over the femoral sciatic nerve distributions. She has active ankle dorsiflexion, plantarflexion, great toe extension, great toe flexion. Results Last Vital Signs Temp 36.3 C L 12/07/24 10:11 Pulse 81 12/07/24 10:11 Resp 18 12/07/24 10:11 BP 134/76 12/07/24 10:11 Pulse Ox 96 12/07/24 10:11 Labs 12/07/24 12:46 12/07/24 12:46 Labs: Laboratory Results - last 24 hr 12/07/24 12:46 WBC 11.11 H RBC 5.02 Hgb 14.6 Hct 43.8 MCV 87 MCH 29.1 MCHC 33.3 RDW 12.5 Plt Count 193 MPV 9.5 Immature Gran % 0.3 Neutrophils % 76.3 Lymphocytes % 14.8 Monocytes % 7.9 Eosinophils % 0.5 Basophils % 0.2 Nucleated RBC % 0.0 Absolute Neutrophils 8.48 H Absolute Lymphocytes 1.64 Absolute Monocytes 0.88 H Absolute Eosinophils 0.06 Absolute Basophils 0.02 Imaging Imaging Studies: X-ray of the right hip shows no significant fracture appreciable. However, there is notable arthritic change with large osteophytes, subchondral cyst, and joint space narrowing. CT scan of the right hip shows irregularity of the cortex laterally which likely represents a nondisplaced or incomplete fracture involve the lateral cortex of the femur neck. There are substantial changes of arthritis seen within the right hip.
[2024-12-07 13:07] LABS: Anion Gap 7.7 mmol/L (3-11); BUN 18 mg/dL (7-18); CO2 29.3 mmol/L (21.0-32.0); Calcium 9.1 mg/dL (8.5-10.1); Chloride 103 mmol/L (98-107); Estimated GFR 78.24 (mL/min/1.73m2); Glucose 88 mg/dL (74-106); Potassium 3.6 mmol/L (3.5-5.1); Sodium 140 mmol/L (136-145)
[2024-12-07 13:35] VITALS: BP 127/71; PULSE 77; RESP 20; TEMP 37.4; O2SAT 97
[2024-12-07] MEDS: Acetaminophen 325 MG TAB 650 MG PO (14:42)
[2024-12-07] MEDS: HYDROmorphone 2 MG/ML SYR 0.5 MG IVP ×2 (15:24→21:21)
[2024-12-07] MEDS: Normal Saline Flush 10 ML SYR IVP ×4 (15:24→21:21)
[2024-12-07 17:13] VITALS: BP 114/53; PULSE 70; RESP 17; TEMP 36.7; O2SAT 94
[2024-12-07] MEDS: Ondansetron 4 MG/2 ML VIAL IVP (18:18)
--- NOTE | 2024-12-07 18:23 | W.PC.ACHO ---
Registration Status: ADM IN Primary Language: Preferred Language: ED Information & Data Chief Complaint Recheck 12/07/24 10:34 Triage Note patient was here earlier 12/07/24 10:11 returned for recheck of a fall she sustained early this am Medical / Surgical History (Updated 12/07/24 @ 12:31 by Delia Cruz MD) Kidney stones Sprain of right wrist Leg weakness, bilateral Abnormal mammography Nausea and vomiting Cough Osteoporosis Proximal muscle weakness Back pain Gastroenteritis Upper respiratory infection Depressive disorder Vitamin D deficiency Menopause present Cramps of lower extremity Low back pain Female stress incontinence Colitis GERD with esophagitis Essential hypertension Migraine without aura Migraine with aura Primary insomnia Hyperlipidemia (Updated 09/10/24 @ 10:13 by Zack Vargas MD) History of tonsillectomy and adenoidectomy H/O esophagogastroduodenoscopy S/P hysterectomy S/P cholecystectomy Most Recent Vital Signs Temperature 36.7 C 12/07/24 17:13 Temperature Source Temporal Artery Scan 12/07/24 17:13 Pulse 70 12/07/24 17:13 Pulse Rhythm Regular 12/07/24 14:44 Respiratory Rate 17 12/07/24 17:13 Respiratory Effort Normal 12/07/24 14:44 Respiratory Depth Normal 12/07/24 14:44 Respiratory Pattern Normal 12/07/24 14:44 Blood Pressure 114/53 L 12/07/24 17:13 Blood Pressure Mean 73 12/07/24 17:13 Blood Pressure Position Sitting 12/07/24 10:11 Pulse Oximetry 94 12/07/24 17:13 Oxygen Delivery Method Room Air 12/07/24 17:13 Oxygen Flow Rate 0 12/07/24 17:13 Pain Level 0 12/07/24 17:13 Allergies No Known Allergies Allergy (Verified 12/07/24 07:17) Active Medications Generic Name Dose Route Start Last Admin Trade Name Freq PRN Reason Stop Dose Admin Acetaminophen 650 mg 12/07/24 12:48 12/07/24 14:42 Acetaminophen 325 Mg Tab PO 650 mg Q4H PRN PRN Administration Hydromorphone HCl 0.5 mg 12/07/24 13:45 12/07/24 15:24 Hydromorphone 2 Mg/Ml Syr IVP 0.5 mg Q4H PRN PRN Administration Ondansetron HCl 4 mg 12/07/24 13:45 12/07/24 18:18 Ondansetron 4 Mg/2 Ml Vial IVP 4 mg Q4H PRN PRN Administration Sodium Chloride 0 ml 12/07/24 12:24 12/07/24 18:18 Normal Saline Flush 10 Ml Syr IVP 10 ml PRN PRN Administration IV IV Catheter Type [Right Saline Lock Antecubital] Diet Orders Category Date Time Status Heart Healthy Eating [DIET] Nutrition 12/07/24 Dinner Active Diagnostics 12/07/24 Range/Units 12:46 WBC 11.11 H (4.4-10.8) 10^3/uL RBC 5.02 (3.93-5.22) 10^6/uL Hgb 14.6 (11.2-15.7) g/dL Hct 43.8 (36.0-46.0) % MCV 87 (80-95) fL MCH 29.1 (27.0-33.0) pg MCHC 33.3 (32.0-36.0) % RDW 12.5 (11.7-14.6) % Plt Count 193 (130-400) 10^3/uL MPV 9.5 (8.0-11.0) fL Immature Gran % 0.3 % Neutrophils % 76.3 % Lymphocytes % 14.8 % Monocytes % 7.9 % Eosinophils % 0.5 % Basophils % 0.2 % Nucleated RBC % 0.0 (0.0-0.3) % Absolute Neutrophils 8.48 H (1.2-6.7) 10^3/uL Absolute Lymphocytes 1.64 (1.2-3.4) 10^3/uL Absolute Monocytes 0.88 H (0.1-0.8) 10^3/uL Absolute Eosinophils 0.06 (0.0-0.7) 10^3/uL Absolute Basophils 0.02 (0.0-0.2) 10^3/uL Sodium 140 (136-145) mmol/L Potassium 3.6 (3.5-5.1) mmol/L Chloride 103 (98-107) mmol/L Carbon Dioxide 29.3 (21.0-32.0) mmol/L Anion Gap 7.7 (3-11) mmol/L BUN 18 (7-18) mg/dL Creatinine 0.8 (0.55-1.02) mg/dL Est GFR (CKD-EPI 2020) 78.24 (mL/min/1.73m2) Glucose 88 (74-106) mg/dL Calcium 9.1 (8.5-10.1) mg/dL Intake and Output - 24 Hour Total 12/07/24 10:06 thru 12/07/24 10:11 Weight 65.771 kg Falls Risk Assessment History of Falls Previous History 12/07/24 14:44 Contributing Factors No Factors 12/07/24 14:44 Ambulatory Aids Uses ambulatory device 12/07/24 14:44 Tubes/Lines None 12/07/24 14:44 Gait Evaluation W/no contributing factors 12/07/24 14:44 Cognition No cognitive impairment 12/07/24 14:44 Fall Total Score 40 12/07/24 14:44 Level of Risk Moderate Risk 12/07/24 14:44 Problems (Updated 12/07/24 @ 12:31 by Delia Cruz MD) Closed fracture of neck of right femur (Acute) v v v v v v v v v Sending and/or Receiving Nurses: Please use comment section below to note any information pertinent to the patient hand-off not included above. Information / Comments: Pt arrived to the unit at 1331. Report received from: Susan GODINEZ in ED @[id number]
[2024-12-07 18:56] VITALS: BP 100/52; PULSE 78; RESP 16; TEMP 36.4; O2SAT 97
[2024-12-07 19:13] VITALS: BP 121/59; PULSE 70; RESP 16; TEMP 36.7; O2SAT 98
--- NOTE | 2024-12-07 19:45 | HPE_ITS ---
Date of service: 12/07/24 Time of Service: 13:30 Assessment and Plan Assessment and plan (1) Closed fracture of neck of right femur: Status: Acute Assessment and plan: NPO after midnight. Plan for OR tomorrow for percutaneous screw fixation. Pain control: Acetaminophen and ibuprofen as needed; opioids if required. Fall precautions. Physical therapy postoperatively. Orthopedics recommends zoledronic acid (Reclast) prior to discharge to reduce future fracture risk. Remove ibarra post op (2) Fall: Status: Acute Assessment and plan: Aas above (3) Hypertension: Status: Chronic Assessment and plan: Stable Continue home meds (4) Hyperlipidemia: Assessment and plan: Stable Hold aspirin Continue home meds (5) Depressive disorder: Assessment and plan: Stable Continue home meds (6) GERD (gastroesophageal reflux disease): Status: Chronic Assessment and plan: Stable Continue home meds History of Present Illness History of Present Illness Chief Complaint: Mechanical fall right hip pain. N arrative: Thisis a 74-year-old female with a history of osteoporosis and prior left femoral neck fracture (August 2024), presenting after a mechanical fall earlier today. She initially had right hip pain but was ambulatory, and initial X-rays were read as negative. The radiologist subsequently identified a possible cortical defect at the right femoral neck, prompting her return for further evaluation. She reports persistent right groin and posterior hip pain, worsened with weightbearing and certain movements. She denies numbness, tingling, or weakness of the extremity. No head strike or loss of consciousness. Pain has been tolerable with acetaminophen and ibuprofen. In the ED: * Labs: WBC 11.1 (mild leukocytosis), remainder of CBC and BMP within normal limits. * Imaging: * X-ray: Degenerative changes, no definite fracture. * CT Pelvis: Cortical irregularity at the lateral aspect of the right femoral neck, consistent with a nondisplaced or incomplete fracture; moderate to severe osteoarthritis. Consults: Orthopedics (Dr. Reeves) evaluated at bedside. Recommended surgical fixation with percutaneous cannulated screws given nondisplaced nature and absence of pre-injury arthritic pain. Patient is admitted to the medical service awaiting surgery tomorrow. Patient agrees with plan of care. Patient is stable.. Patient is full code. Review of Systems Narrative: All systems reviewed and are negative except as noted in the HPI. Patient reports right hip pain following fall. Denies fever, chills, chest pain, shortness of breath, numbness, or weakness. PFSH All Active Problems (Updated 12/07/24 @ 19:49 by Patti Guadarrama NP) GERD (gastroesophageal reflux disease) (Chronic) Hypertension (Chronic) Closed fracture of neck of right femur (Acute) Fall (Acute) Abrasion of knee, right (Acute) Contusion of hip, right (Acute) Skull mass (Acute) Fracture of femoral neck, left (Acute 08/13/24) Cervical spinal stenosis (Acute) Fall (Acute) Sinus disease (Acute) Hemiplegic migraine (Acute) Babinski sign positive in left foot (Acute) Balance disorder (Acute) Medical History Kidney stones Sprain of right wrist Leg weakness, bilateral Abnormal mammography Nausea and vomiting Cough Osteoporosis Proximal muscle weakness Back pain Gastroenteritis Upper respiratory infection Depressive disorder Vitamin D deficiency Menopause present Cramps of lower extremity Low back pain Female stress incontinence Colitis GERD with esophagitis Essential hypertension Migraine without aura Migraine with aura Primary insomnia Hyperlipidemia Surgical History History of tonsillectomy and adenoidectomy H/O esophagogastroduodenoscopy S/P hysterectomy S/P cholecystectomy Family History Father Diabetes Heart disease Mother Heart disease Sister Heart disease Arthritis Brother Heart disease Social History Smoking/Tobacco Use Status: Never Smoking risk assessment performed?: Yes Alcohol Intake: never Drug use: Never Substance use type: does not use Household members: none Housing: apartment Number of Children: 2 current occupation: Childcare provider What is your relationship status?: Panel score (0-1 are the most socially isolated patients): 0 Meds Allergies and Home Medications Allergies Allergy/AdvReac Type Severity Reaction Status Date / Time No Known Allergies Allergy Verified 12/07/24 07:17 Home Medications ?Medication ?Instructions ?Recorded ?Confirmed ?Type ascorbic acid (vitamin C) 250 mg 250 mg PO DAILY 03/0312/07/24 History tablet atorvastatin 40 mg tablet 40 mg PO DAILY 03/03/2408/26 History magnesium oxide 500 mg capsule 500 mg PO DAILY 4 12/07/24 History pantoprazole 40 mg tablet,delayed 40 mg PO DAILY 03/0312/07/24 History release zinc glycinate 20 mg capsule 20 mg PO DAILY 03/03/24 1 History aspirin 81 mg tablet 81 mg PO BID prevent blood c lot 08/14/24 12/07/24 Rx #60 tabs escitalopram oxalate 10 mg tablet 10 mg PO DAILY 08/1712/07/24 History lactobacillus combination no.4 3 3,000 mmu cells PO DA JUANI 08/25/24 12/07/24 History billion cell capsule (Probiotic) acetaminophen 500 mg capsule 500 mg PO Q6H PRN 5 12/07/24 History ibuprofen 200 mg tablet 200 mg PO Q6H PRN 09/10/24 1 History Exam Narrative Exam Narrative: * General: Alert, oriented, in no acute distress. * HEENT: Sclera anicteric. * Neck: Supple. * Cardiovascular: Well perfused; regular rate and rhythm. * Respiratory: Non-labored respirations on room air. * Abdomen: Soft, non-tender, non-distended. * Musculoskeletal: * Right hip: Tender to palpation laterally and with rotation. No deformity or ecchymosis. Tolerates limited passive ROM with mild discomfort. * Strength and sensation intact distally; active dorsiflexion and plantarflexion present. * Neuro: No focal deficits. * Skin: No rashes or cyanosis. * Psych: Cooperative, appropriate mood and affect. Results Labs 12/07/24 12:46 12/07/24 12:46 Labs: Laboratory Results - last 24 hr 12/07/24 12:46 WBC 11.11 H RBC 5.02 Hgb 14.6 Hct 43.8 MCV 87 MCH 29.1 MCHC 33.3 RDW 12.5 Plt Count 193 MPV 9.5 Immature Gran % 0.3 Neutrophils % 76.3 Lymphocytes % 14.8 Monocytes % 7.9 Eosinophils % 0.5 Basophils % 0.2 Nucleated RBC % 0.0 Absolute Neutrophils 8.48 H Absolute Lymphocytes 1.64 Absolute Monocytes 0.88 H Absolute Eosinophils 0.06 Absolute Basophils 0.02 Sodium 140 Potassium 3.6 Chloride 103 Carbon Dioxide 29.3 Anion Gap 7.7 BUN 18 Creatinine 0.8 Est GFR (CKD-EPI 2020) 78.24 Glucose 88 Calcium 9.1 Last Vital Signs Temp 36.7 C 12/07/24 19:13 Pulse 70 12/07/24 19:13 Resp 16 12/07/24 19:13 BP 121/59 L 12/07/24 19:13 Pulse Ox 98 12/07/24 19:13 Time Spent Time spent with Patient: 40-54 minutes Time was spent: preparing to see the patient(eg.review tests), obtaining and/or reviewing separately otained hiistory, ordering medications,tests, procedures, referring, communicating with other health career portals teacher, indepentently interpreting results, counseling the patient and care coordination
[2024-12-07] MEDS: Normal Saline 1,000 ML 125 ML IV (20:16)
[2024-12-07] MEDS: Atorvastatin 40 MG TAB PO (20:25)
[2024-12-08] VITALS (25 sets, daily range): BP systolic 96–132; BP diastolic 43–66; PULSE 65–85; RESP 10–20; TEMP 36.1–37.6; O2SAT 91–98; BMI 23.3
[2024-12-08] MEDS: Normal Saline 1,000 ML 125 ML IV ×2 (04:07→11:41)
[2024-12-08] MEDS: HYDROmorphone 2 MG/ML SYR 0.5 MG IVP ×3 (05:35→23:41)
[2024-12-08] MEDS: Normal Saline Flush 10 ML SYR IVP ×4 (05:36→23:42)
[2024-12-08 06:43] LABS: Abs Immature Grans 0.02 10^3/uL (0.0-0.06); HCT 37.4 % (36.0-46.0); HGB 12.4 g/dL (11.2-15.7); Immature Grans % 0.3 %; MCH 29.2 pg (27.0-33.0); MCHC 33.2 % (32.0-36.0); MCV 88 fL (80-95); MPV 9.9 fL (8.0-11.0); Platelet Count 165 10^3/uL (130-400); RBC 4.25 10^6/uL (3.93-5.22); RDW 12.6 % (11.7-14.6); RDW-SD 40.9 fL; WBC 5.94 10^3/uL (4.4-10.8)
[2024-12-08 07:03] LABS: Anion Gap 10.5 mmol/L (3-11); BUN 15 mg/dL (7-18); CO2 24.5 mmol/L (21.0-32.0); Calcium 8.2 mg/dL (8.5-10.1); Chloride 107 mmol/L (98-107); Estimated GFR 91.83 (mL/min/1.73m2); Glucose 92 mg/dL (74-106); Magnesium 2.1 mg/dL (1.8-2.4); Potassium 3.9 mmol/L (3.5-5.1); Sodium 142 mmol/L (136-145)
[2024-12-08] MEDS: Lactobacillus Acidophilus CAP 1 CAP PO (07:36)
[2024-12-08] MEDS: Pantoprazole 40 MG TABCR PO (07:36)
[2024-12-08] MEDS: Zinc Sulfate 220 MG TAB PO (07:36)
[2024-12-08] MEDS: Ascorbic Acid 500 MG TAB 250 MG PO (07:36)
[2024-12-08] MEDS: Escitalopram 10 MG TAB PO (07:36)
[2024-12-08] MEDS: Magnesium Oxide 400 MG TAB PO (07:36)
--- NOTE | 2024-12-08 08:15 | W.PM.PROGNOT ---
Date of Service Date of service: 12/08/24 Time of Service: 08:15 Assessment and Plan Assessment and plan (1) Closed fracture of neck of right femur: Status: Acute Assessment and plan: - As seen on pelvic CT in the emergency department - Patient has been n.p.o. since midnight - Plan is for percutaneous screw fixation with orthopedic surgery this afternoon 12/08/2024 - Pain has been well-controlled, continue as needed acetaminophen and ibuprofen - Patient will be seen by physical therapy postop - As per Ortho recommendations patient will receive zoledronic acid prior to discharge (2) Fall: Status: Acute Assessment and plan: - Resulting in a right femoral neck fracture as noted above (3) Hypertension: Status: Chronic Assessment and plan: - Continue home antihypertensives (4) Hyperlipidemia: Assessment and plan: -Hold home aspirin - Continue home statin (5) Depressive disorder: Assessment and plan: - Continue home meds (6) GERD (gastroesophageal reflux disease): Status: Chronic Assessment and plan: - Continue home PPI Subjective Subjective Interval history since last seen: Patient states that she is doing well and does not have any pain. She understands that she is going to the OR this afternoon and has no complaints or concerns at this time. Exam Narrative Exam Narrative: Well-appearing older female laying in bed in no acute distress, ANO x 4, heart regular rhythm, lungs to auscultation bilaterally, abdomen soft, nontender, nondistended, decreased range of motion of right lower extremity secondary to pain Objective Last Vital Signs Temp 98.6 F 12/08/24 07:05 Pulse 71 12/08/24 07:05 Resp 17 12/08/24 07:05 BP 122/52 L 12/08/24 07:05 Pulse Ox 93 12/08/24 07:05 Laboratory Results - last 24 hr 12/07/24 12/08/24 12:46 06:05 WBC 11.11 H 5.94 RBC 5.02 4.25 Hgb 14.6 12.4 D Hct 43.8 37.4 MCV 87 88 MCH 29.1 29.2 MCHC 33.3 33.2 RDW 12.5 12.6 Plt Count 193 165 MPV 9.5 9.9 Immature Gran % 0.3 0.3 Neutrophils % 76.3 65.6 Lymphocytes % 14.8 20.9 Monocytes % 7.9 8.8 Eosinophils % 0.5 3.7 Basophils % 0.2 0.7 Nucleated RBC % 0.0 0.0 Absolute Neutrophils 8.48 H 3.90 Absolute Lymphocytes 1.64 1.24 Absolute Monocytes 0.88 H 0.52 Absolute Eosinophils 0.06 0.22 Absolute Basophils 0.02 0.04 Sodium 140 142 Potassium 3.6 3.9 Chloride 103 107 Carbon Dioxide 29.3 24.5 Anion Gap 7.7 10.5 BUN 18 15 Creatinine 0.8 0.7 Est GFR (CKD-EPI 2020) 78.24 91.83 Glucose 88 92 Calcium 9.1 8.2 L Magnesium 2.1 Time Spent with Patient Time Spent with Patient: >50 minutes Time was spent: preparing to see the patient(eg.review tests), obtaining and/or reviewing separately otained hiistory, ordering medications,tests, procedures, referring, communicating with other health animal care giver, indepentently interpreting results, counseling the patient and care coordination
--- NOTE | 2024-12-08 09:05 | PGE_ITS ---
Date of Service Date of service: 12/08/24 Time of Service: 14:05 Assessment and Plan Assessment and plan (1) Closed fracture of neck of right femur: Status: Acute Assessment and plan: Swathi had no changes to her symptoms. She has a incomplete or nondisplaced fracture of the right femoral neck without any pain of the right hip prior to fall despite notable arthritis. Therefore, I will proceed today with screw fixation of the femoral neck fracture. Once again, I reviewed the technical details of the surgery with her. I discussed risk to include bleeding, infection, pain, stiffness, damage to nerves and vessels, damage to the muscles and tendons, worsening arthritis or persistent right hip pain, need for repeat procedures, hardware prominence, bursitis or tendinitis, blood clot. Despite these risk, she elects to proceed. We also spent a few minutes discussing hip replacement now versus a screw fixation. Once again she is not then interested in proceeding with the increased risk and complexity of a hip replacement given that she had no preinjury hip pain which I think is very reasonable. She does have osteoporosis and I discussed the case with Dr. Hyman as well. We will plan for treatment of her osteoporosis with vitamin D, calcium, and zoledronic acid prior to discharge. Subjective Subjective Interval history since last seen: No acute changes. Pain has been controlled. No chest pain or shortness of breath. No new symptoms. No numbness or tingling. Exam Narrative Exam Narrative: Resting in the hospital bed. No acute distress. Alert and orient x 3. Evaluation of the right leg once again shows no overlying skin changes or masses. No significant ecchymosis. No significant swelling. Objective Last Vital Signs Temp 37.0 C 12/08/24 07:05 Pulse 71 12/08/24 07:05 Resp 17 12/08/24 07:05 BP 122/52 L 12/08/24 07:05 Pulse Ox 93 12/08/24 07:05 Laboratory Results - last 24 hr 12/07/24 12/08/24 12:46 06:05 WBC 11.11 H 5.94 RBC 5.02 4.25 Hgb 14.6 12.4 D Hct 43.8 37.4 MCV 87 88 MCH 29.1 29.2 MCHC 33.3 33.2 RDW 12.5 12.6 Plt Count 193 165 MPV 9.5 9.9 Immature Gran % 0.3 0.3 Neutrophils % 76.3 65.6 Lymphocytes % 14.8 20.9 Monocytes % 7.9 8.8 Eosinophils % 0.5 3.7 Basophils % 0.2 0.7 Nucleated RBC % 0.0 0.0 Absolute Neutrophils 8.48 H 3.90 Absolute Lymphocytes 1.64 1.24 Absolute Monocytes 0.88 H 0.52 Absolute Eosinophils 0.06 0.22 Absolute Basophils 0.02 0.04 Sodium 140 142 Potassium 3.6 3.9 Chloride 103 107 Carbon Dioxide 29.3 24.5 Anion Gap 7.7 10.5 BUN 18 15 Creatinine 0.8 0.7 Est GFR (CKD-EPI 2020) 78.24 91.83 Glucose 88 92 Calcium 9.1 8.2 L Magnesium 2.1 Time Spent with Patient Time Spent with Patient: <25 minutes Time was spent: preparing to see the patient(eg.review tests), obtaining and/or reviewing separately otained hiistory, referring, [facility] before and after school daycare worker and counseling the patient
--- NOTE | 2024-12-08 09:45 | INITIAL_ITS ---
Date of service: 12/08/24 Time of Service: 09:46 Care Management Initial Assmt Initial Assessment Reason for Hospitalization: closed fracture of neck of right femur Functional Status/Living Situation Patient Presentation: Swathi presented to the ED yesterday morning s/p a fall. She presented to the the ED with pain in her right hip. Initially the Xrays were read as negative, but was later reviewed and she was found to have a fracture. She will be going to surgery this afternoon for surgical fixation. Of note, she is s/p left hip fracture in August. Swathi was very pleasant with CM, she is known to CM from her last admission. Swathi stated that she did well after her last surgery. She found it funny that she just finished up PT from her last hip, and will need to go again. She does not anticipate the need for HH PT, as she did not use it last time. Swathi was seen again this afternoon after her surgery. She was tired, but very pleased it was over. 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 Advance Directives Advance Directives: Do you have an Advance Directive: AD On File at [facility]: N 12/04/24, 10:00 Date Asked 12/07/24 12/07/24, 07:11 AD Date Reviewed COLST On File at [facility] COLST Date Scanned Code Status Resuscitation Status Full Code Insurance Coverage/Financial Issues Insurance: Medicare Part A & B Care Team Visit Care Team Role Provider Type Andres Basurto Primary Care Provider NON-[facility] STAFF PHYSICIAN Delia Cruz MD Emergency Provider [facility] STAFF PHYSICIAN Jadon Hyman MD Admit Provider [facility] STAFF PHYSICIAN Attending Provider Discharge Potential Discharge Needs: PT Evaluation, PCP F/U Appt and Surgical F/U Appt Anticipated Barriers to Discharge: None Identified Patient/Family Education Needs: Review discharge instructions, discuss Ask Me Three Transportation: Private vehicle Plan: Anticipate that Swathi will discharge home once medically stable after her surgery. She will f/u with her PCP and the orthopedic surgeon and continue per her plan of care. She may require HH services, this will be determined after surgery and her PT sada. Swathi will transport home in a private vehicle with her son. CM will continue to follow and update the plan as needed. Social Determinants of Health Screening Social Determinants of health last assessed in clinic: 12/08/24 Will the Patient Participate in the Screening?: Yes Do you worry about having a steady place to live?: no Problems where you live: no known problems In the past 12 months, have you had to go without electric, gas, oil or water in your home?: no 1. Within the past 12 months, we worried whether our food would run out before we got money to buy more.: Don't know/refused 2. Within the past 12 months, the food we bought just didn't last and we didn't have money to get more.: Don't know/refused Has lack of transportation kept you from medical appointments or from doing things needed for daily living?: no Has anyone in your life made you feel unsafe or unsupported?: no How hard is it for you to pay for the very basics like food, housing, medical care, and heating? Would you say it is:: Not hard at all Do you want help finding or keeping work or a job?: I do not need or want help If for any reason you need help with day-to-day activities such as bathing, preparing meals, shopping, managing finances, etc., do you get the help you need?: I don?t need any help How often do you feel lonely or isolated from those around you?: Never Do you speak a language other than Syrian at home?: No PFSH All Active Problems (Updated 12/07/24 @ 19:49 by Patti Guadarrama NP) GERD (gastroesophageal reflux disease) (Chronic) Hypertension (Chronic) Closed fracture of neck of right femur (Acute) Fall (Acute) Abrasion of knee, right (Acute) Contusion of hip, right (Acute) Skull mass (Acute) Fracture of femoral neck, left (Acute 08/13/24) Cervical spinal stenosis (Acute) Fall (Acute) Sinus disease (Acute) Hemiplegic migraine (Acute) Babinski sign positive in left foot (Acute) Balance disorder (Acute) Medical History Kidney stones Sprain of right wrist Leg weakness, bilateral Abnormal mammography Nausea and vomiting Cough Osteoporosis Proximal muscle weakness Back pain Gastroenteritis Upper respiratory infection Depressive disorder Vitamin D deficiency Menopause present Cramps of lower extremity Low back pain Female stress incontinence Colitis GERD with esophagitis Essential hypertension Migraine without aura Migraine with aura Primary insomnia Hyperlipidemia Surgical History History of tonsillectomy and adenoidectomy H/O esophagogastroduodenoscopy S/P hysterectomy S/P cholecystectomy Family History Father Diabetes Heart disease Mother Heart disease Sister Heart disease Arthritis Brother Heart disease Social History Smoking/Tobacco Use Status: Never Smoking risk assessment performed?: Yes Alcohol Intake: never Drug use: Never Substance use type: does not use Household members: none Housing: apartment Number of Children: 2 current occupation: Childcare provider What is your relationship status?: Panel score (0-1 are the most socially isolated patients): 0
[2024-12-08 09:59] LABS: Lab Add On Test DONE
[2024-12-08 10:37] LABS: Albumin 3.3 g/dL (3.4-5.0); Vitamin D 25 Total 24 ng/mL (30-100)
[2024-12-08] MEDS: Ondansetron 4 MG/2 ML VIAL IVP (10:54)
--- NOTE | 2024-12-08 10:54 | W.ANESPRE ---
General Info Date of Service Date Performed: 12/08/24 Height: 5 ft 6 in Weight: 65.771 kg Body Mass Index (BMI): 23.3 Surgical Procedure: Operation Date: 12/08/24 15:55 Proposed Procedure Side Surgeon p Hip Cannulated Fx Right Carmine Reeves MD Meds Allergies and Home Medications Allergies Allergy/AdvReac Type Severity Reaction Status Date / Time No Known Allergies Allergy Verified 12/07/24 07:17 Home Medication ?Medication ?Instructions ?Recorded ascorbic acid (vitamin C) 250 mg 250 mg PO DAILY 03/03/24 tablet atorvastatin 40 mg tablet 40 mg PO DAILY 03/03/24 magnesium oxide 500 mg capsule 500 mg PO DAILY 03/03/24 pantoprazole 40 mg tablet,delayed 40 mg PO DAILY 03/03/24 release zinc glycinate 20 mg capsule 20 mg PO DAILY 03/03/24 aspirin 81 mg tablet 81 mg PO BID prevent blood clot 08/14/24 #60 tabs escitalopram oxalate 10 mg tablet 10 mg PO DAILY 08/17/24 lactobacillus combination no.4 3 3,000 mmu cells PO DAILY 08/25/24 billion cell capsule (Probiotic) acetaminophen 500 mg capsule 500 mg PO Q6H PRN 09/10/24 ibuprofen 200 mg tablet 200 mg PO Q6H PRN 09/10/24 Current Visit Medications: Current Medications Generic Name Dose Route Start Last Admin Trade Name Freq PRN Reason Stop Dose Admin Acetaminophen 650 mg 12/07/24 12:48 12/07/24 14:42 Acetaminophen 325 Mg Tab PO 650 mg Q4H PRN PRN Administration Acetaminophen 500 mg 12/07/24 14:18 Acetaminophen 500 Mg Tab PO Q6H PRN PRN Acidophilus/Pectin 1 cap 12/08/24 08:30 12/08/24 07:36 Lactobacillus Acidophilus Cap PO 1 cap DAILY LION Administration Ascorbic Acid 250 mg 12/08/24 08:30 12/08/24 07:36 Ascorbic Acid 500 Mg Tab PO 250 mg DAILY LION Administration Atorvastatin Calcium 40 mg 12/07/24 20:00 12/07/24 20:25 Atorvastatin 40 Mg Tab PO 40 mg HS LION Administration Escitalopram Oxalate 10 mg 12/08/24 08:30 12/08/24 07:36 Escitalopram 10 Mg Tab PO 10 mg DAILY LION Administration Hydromorphone HCl 0.5 mg 12/07/24 13:45 12/08/24 05:35 Hydromorphone 2 Mg/Ml Syr IVP 0.5 mg Q4H PRN PRN Administration Sodium Chloride 1,000 mls @ 125 mls/hr 12/07/24 20:00 12/08/24 04:07 Saline 1000ml Bag IV 125 mls/hr INFUSION LION Administration IV Miscellaneous Supplies 1 each 12/07/24 12:30 Iv Access-Emergency Dept IV DIRECTED LION Magnesium Oxide 400 mg 12/08/24 08:30 12/08/24 07:36 Magnesium Oxide 400 Mg Tab PO 400 mg DAILY LION Administration Ondansetron HCl 4 mg 12/07/24 13:45 12/07/24 18:18 Ondansetron 4 Mg/2 Ml Vial IVP 4 mg Q4H PRN PRN Administration Pantoprazole Sodium 40 mg 12/08/24 07:30 12/08/24 07:36 Pantoprazole 40 Mg Tabcr PO 40 mg DAILY@0730 LION Administration Polyethylene Glycol 17 gm 12/07/24 12:48 Polyethylene Glycol 3350 17 Gm Packet PO DAILY PRN PRN Constipation Sodium Chloride 0 ml 12/07/24 12:24 12/08/24 05:36 Normal Saline Flush 10 Ml Syr IVP 10 ml PRN PRN Administration Sodium Chloride 0 ml 12/07/24 20:00 12/08/24 09:29 Normal Saline Flush 10 Ml Syr IVP Not Given BID LION Sodium Chloride 0 ml 12/07/24 12:24 Normal Saline 10 Ml Vial IJ DIRECTED PRN Zinc Sulfate 220 mg 12/08/24 08:30 12/08/24 07:36 Zinc Sulfate 220 Mg Tab PO 220 mg DAILY LION Administration PFSH Active Problems Active Problems: Problem Status Onset Code GERD (gastroesophageal reflux disease) Chronic K21.9 Hypertension Chronic I10 Closed fracture of neck of right femur Acute S72.001A Fall Acute W19.XXXA Abrasion of knee, right Acute S80.211A Contusion of hip, right Acute S70.01XA Skull mass Acute M89.8X8 Fracture of femoral neck, left Acute 08/13/24 S72.002A Cervical spinal stenosis Acute M48.02 Fall Acute W19.XXXA Sinus disease Acute J34.9 Hemiplegic migraine Acute G43.409 Babinski sign positive in left foot Acute R29.2 Balance disorder Acute R26.89 Medical History Medical History Kidney stones Sprain of right wrist Leg weakness, bilateral Abnormal mammography Nausea and vomiting Cough Osteoporosis Proximal muscle weakness Back pain Gastroenteritis Upper respiratory infection Depressive disorder Vitamin D deficiency Menopause present Cramps of lower extremity Low back pain Female stress incontinence Colitis GERD with esophagitis Essential hypertension Migraine without aura Migraine with aura Primary insomnia Hyperlipidemia Surgical History Surgical History History of tonsillectomy and adenoidectomy H/O esophagogastroduodenoscopy S/P hysterectomy S/P cholecystectomy Tobacco Smoking/Tobacco Use Status: Never Alcohol Alcohol Intake: never Substance Use Substance use: Never Substance use type: does not use Vital Signs and Lab Results Vital Signs Most Recent Vital Signs in EMR: Most Recent Vital Signs Temp Pulse Resp BP Pulse Ox 37.0 C 71 17 122/52 L 93 12/08/24 07:05 12/08/24 07:05 12/08/24 07:05 12/08/24 07:05 12/08/24 07:05 Lab Results 12/08/24 06:05 12/08/24 06:05 Complete Blood Count: WBC, (4.4-10.8) 5.94 10^3/uL Today, 06:05 RBC, (3.93-5.22) 4.25 10^6/uL Today, 06:05 Hgb, (11.2-15.7) 12.4 g/dL Δ Today, 06:05 Hct, (36.0-46.0) 37.4 % Today, 06:05 Plt Count, (130-400) 165 10^3/uL Today, 06:05 Complete Metabolic Panel: Sodium, (136-145) 142 mmol/L Today, 06:05 Potassium, (3.5-5.1) 3.9 mmol/L Today, 06:05 Chloride, (98-107) 107 mmol/L Today, 06:05 Carbon Dioxide, (21.0-32.0) 24.5 mmol/L Today, 06:05 BUN, (7-18) 15 mg/dL Today, 06:05 Creatinine, (0.55-1.02) 0.7 mg/dL Today, 06:05 Est GFR (CKD-EPI 2020), (mL/min/1.73m2) 91.83 Today, 06:05 Magnesium, (1.8-2.4) 2.1 mg/dL Today, 06:05 Calcium, (8.5-10.1) 8.2 mg/dL L Today, 06:05 Albumin, (3.4-5.0) 3.3 g/dL L Today, 06:05 Glucose, (74-106) 92 mg/dL Today, 06:05 C-Reactive Protein, (<or=0.5) < 0.50 mg/dL 11/26/24, 15:45 Liver Function Panel: ALT, (14-59) 18 U/L 11/26/24, 15:45 AST, (15-37) 13 U/L L 11/26/24, 15:45 Imaging and Studies Imaging and Studies Study information below may be from another EMR and interpreted by another provider. Please see original notes in EMR for more complete details. Echocardiogram Summary: 10-16-24 Conclusion Technically limited study Normal left ventricular wall thickness chamber size and systolic function. Ejection fraction is 55%. Wall motion is normal Normal right ventricular size and function Both atria are normal in size There are no structural valvular abnormalities Mild mitral regurgitation Wall motion Left Ventricle Technically limited imaging, unable to position patient. The left ventricular systolic function is normal. The left ventricular ejection fraction is within the normal range. There is normal LV segmental wall motion. There is no ventricular septal defect visualized. LVEF is 55%. Right Ventricle Right ventricle is not well visualized. Right ventricular systolic function could not be assessed. Atria Left atrium is not well visualized. Right atrium is not well visualized. The interatrial septum is intact with no evidence for an atrial septal defect. Aortic Valve The aortic valve is normal in structure. There is no aortic valvular stenosis. No aortic regurgitation is present. Mitral Valve The mitral valve is normal in structure. No evidence of mitral valve stenosis. Mild mitral regurgitation. Tricuspid Valve The tricuspid valve is normal in structure. There is no tricuspid valve stenosis. Trace tricuspid regurgitation. Unable to assess PA pressure. Pulmonic Valve The pulmonary valve is normal in structure. There is no pulmonic valvular stenosis. There is no pulmonic valvular regurgitation. Great Vessels The aortic root is normal in size. Ascending aorta is not well visualized. Aortic arch is normal in caliber. IVC is normal in size and collapses >50% with inspiration. Pericardium There is no pericardial effusion. 2D Dimensions Ao Root d 2.76 cm F: 2.7 - 3.3 Auto EF LV EDV D3C745.1 mLLV EDV U0A116.8 mLLV EDV BP102.9 mL LV ESV A4C45.2 mLLV ESV A2C47.0 mLLV ESV BP46.0 mL LVEF(%) A4C54.8 %LVEF(%) A2C55.2 %LVEF(%) BP55.3 % LV SV A4C54.9 mlLV SV A2C57.9 mlLV SV BP56.9 ml LV CO A4C4.3 L/minLV CO A2C4.1 L/minLV CO BP4.2 L/min HR A4C78.78 BPMHR A2C71.15 BPMLV EDV Index (BP) LV Diastology MV E Vmax 0.61 (0.4-1.3 m/s) MV A Vmax 0.65 (0.4-1.3 m/s) E/A Ratio 0.9 Aortic Valve AoV Vmax1.05 m/sLVOT Vmax 0.64 m/s AoV Peak Grad4.4 mmHgLVOT Peak Grad 1.6 mmHg AoV Area (Vmax)1.70 dh1AGHQ VTI0.122 m AoV VTI0.220 mLVOT Mean Grad 0.9 mmHg AoV Mean Lico.0.80 m/sLVOT SV 34.40 mL AoV Mean Grad2.7 mmHgLVOT Diam s 1.85 cm AoV Area (VTI)1.57 cm2AV Regurg Peak Gr.4.43 mmHg Velocity Ratio 0.61 Mitral Valve MV DT 272 (160-240 msec) MV Vmax TIPS 0.87 m/s MV Mean Grad 1.4 (<2mmHg) MV VTI 0.215 m Pulmonary Valve PV Vmax 0.84 (0.5-1.5 m/s)RVOT Vmax 0.52 m/s PV Peak Grad 2.8 mmHgRVOT Peak Gr.1.1 mmHg PV Mean Vel0.58 m/sRVOT VTI0.112 m PV Mean Grad 1.6 mmHgRVOT Mean Gr.0.6 mmHg Anesthesia Assessment and Plan Anesthesia History Personal History: No History of Anesthesia Complications Family History: No Family History of Anesthesia Complications Exercise Tolerance Exercise Tolerance: Metabolic Equivalents>4 Pertinent Negatives Pertinent Negatives: No Symptoms of GERD, No Major Cardiovascular Symptoms or Complaints, No Major Pulmonary Symptoms or Complaints and No History of CVA/TIA Cardiac & Pulmonary Exam Cardiac Exam: Heart Murmur Present Pulmonary Exam: Clear Bilateral Breath Sounds Implantable Cardiac Device Does patient have a Pacemaker or an ICD?: No Airway Exam Known Difficult Airway: No Mallampati Class: 2 Mouth Opening: Normal (> 3cm) Thyromental Distance: Greater than 3 cm Neck Range of Motion: Full ROM Neck Circumference: Normal Teeth Condition: Normal Dentition Airway Comments: #14 chipped. Back molars chipped/poor dentition ASA Classification ASA Score: ASA 2 Emergency Case?: No NPO Status NPO Status: NPO Clears >2 hours, Solids >8 hours Anesthesia Plan Resuscitation Status: Full Code Anesthesia Technique: General Anesthesia Airway Planned: Endotracheal Tube Monitors Used: Standard Monitors and SedLine
--- NOTE | 2024-12-08 13:00 | DI.RAD_ITS ---
Exam(s) XR HIP RT IN OR EXAM: XR HIP RT IN OR CLINICAL HISTORY: Closed fracture of neck of right femur TECHNIQUE: 2D and realtime digital imaging was performed. CONTRAST MATERIAL: Refer to procedure report. COMPARISON: CT CT PELVIC WO from 12/07/2024 CR,XR XR FEMUR RT from 12/07/2024 CR,XR XR PELVIS AP from 12/07/2024 FINDINGS: Fluoroscopy was provided for Dr. Reeves during the performance of a internal fixation of a right femoral neck fracture. Please refer to the procedure report for complete details. Ka,r=4.6 mGy IMPRESSION: RADIATION DOSE DELIVERED: 0.0 0.0 0
[2024-12-08] MEDS: Bupivacaine 0.25% Pres-Free 30 ML VIAL (14:56)
--- NOTE | 2024-12-08 15:20 | W.PM.OP ---
Operative Note Operative Note PRE-OP DIAGNOSIS: Right Femoral Neck Fracture POST-OP DIAGNOSIS: same PROCEDURE: Cannulated Screw Fixation of Proximal Femur Fracture - RIGHT SURGEON: Carmine Reeves ANESTHESIA TYPE: General LMA/ETT Refer to Anesthesia Record ESTIMATED BLOOD LOSS: 5 PATHOLOGY: none sent COMPLICATIONS: None Patient was transported to: PACU Patient's condition: stable Implants: Synthes 7.3mm cannulated screws (x3) Indications: Swathi is a 74 year old female who presented to the Emergency Department after a fall. X-rays confirmed the diagnosis of a femoral neck fracture of the proximal femur without significant displacement or comminution, question even if complete. I reviewed the possible treatment options and given the fracture of the femur, I recommended treatment. She does have arthritis within his right hip but has no pain or symptoms about the right hip with any weightbearing activities prior to this fall. Therefore, screw fixation was my recommendation rather than hip replacement. I discussed the technical details of the surgery. I reviewed the risks such as bleeding, infection, pain, stiffness, malunion, nonunion, hardware prominence, hardware faiilure, malrotation, avascular necrosis, blood clot. Despite these risks, she agreed to proceed. Findings: A femoral neck fracture was confirmed to be stable and thus secured with #3 - 7.3mm cannulated screws in a percutaneous fashion. Procedure Description: Swathi was taken back to the operating room. A general anesthestic was then administered. The feet were wrapped with cast padding and Coban and then placed into the boot liners and then into the boots. Care was taken to protect the skin and make sure the heels were fully down and the boots were stable. The patient was then positioned onto the HANA table. Both legs were held in a neutral position. SCDs were applied. The patient was then slid down onto a perineal post. The arm of the operative side was then placed across the chest and secured. The nonoperative leg was scissored. A gentle reduction was then performed with traction and internal rotation and gentle external manipulation. Prophylactic antibiotics in the form of Cefazolin were administered. 1g of Tranxemic Acid was given intravenously within 30 minutes of incision. The right leg was then prepped with Chloraprep and draped in a standard fashion with shower-curtain type drape with Iodine impregnated skin protection. A timeout to confirm correct identity, side and site, procedure, allergies, anesthesia, and medical concerns was performed. Using fluoroscopy, the starting point was marked over the lateral hip. The first pin was placed into a posterior?inferior position to form an inverted triangle. This was made sure to start proximal of the lesser trochanter. It was advanced into the femoral head and confirmed to be in a good position both on the AP and the lateral. A 2 cm incision was then made. Then, 2 additional pins from the 7.3 mm cannulated system were placed, both superior, 1 anterior 1 posterior. These were once again confirmed to be in good position on fluoroscopy. They were advanced to the appropriate position in the path of the pin was cut with a knife. The pin length was measured and the lateral cortex was opened with a drill. The appropriate sized screws were then placed loosely. Once all 3 were in position I then proceeded circumferentially tightening each screw by 1 or 2 turns into each were tightened. These had excellent fixation. There is no screw penetration in the head and no penetration within the lateral cortex. AP and lateral x-rays were once again obtained to confirm appropriate positioning throughout both planes and without displacement nor fracture propagation. The wound was thoroughly irrigated. 30 cc of 0.25% bupivacaine was then injected within the soft tissues down to the periosteum of the right hip. The deep tisses were closed with a 2-0 Vicryl and the skin was closed with a running subcuticular Monocryl. This was reinforced with skin glue. The wounds were dressed with a Mepilex silver dressing. At the end of the case, all counts were correct. Swathi tolerated the procedure well without known complication and was taken to the PACU for recovery. Physical therapy will start post-operatively, weigh-bearing as tolerated with assistive devices. Anticoagulation will start within 12-24 hours. 3 doses of post-operative antibitiocis for prophylaxis will be administered. Date of Procedure: 12/08/24
[2024-12-08] MEDS: ACETAMINOPHEN 1,000 MG/100 ML BAG 400 MG IVPB (15:38)
--- NOTE | 2024-12-08 15:47 | W.ANESPOSTOP ---
Postoperative Evaluation Date, Time and Location Date Performed: 12/08/24 Time Performed: 15:47 Patient Location: PACU Vital Signs Most Recent Imported Vital Signs: Most Recent Vital Signs Temp Pulse Resp BP Pulse Ox 36.4 C L 76 14 96/50 L 96 12/08/24 15:35 12/08/24 15:30 12/08/24 15:30 12/08/24 15:30 12/08/24 15:30 Pain Score Most Recent Pain Score: Most Recent Pain Score Pain Level [Right Hip] 1 12/08/24 07:41 Pain Level 0 12/08/24 15:35 Assessment Mental Status: Awake (Alert & Oriented to Patient Baseline) Airway and Respiratory Function: Patent airway with normal (patient baseline) respiratory exam Cardiovascular Function: Hemodynamically Stable Hydration Status: Adequately Hydrated Nausea & Vomiting: No Nausea or Vomiting Pain: Pain is tolerable per patient Peripheral Nerve Block: Patient did not receive a nerve block
[2024-12-08] MEDS: ceFAZolin 1 GM/50 ML BAG IVPB (17:51)
[2024-12-08] MEDS: Atorvastatin 40 MG TAB PO (19:54)
[2024-12-09] MEDS: Normal Saline Flush 10 ML SYR IVP ×2 (01:58→07:52)
[2024-12-09] MEDS: ceFAZolin 1 GM/50 ML BAG IVPB ×2 (01:59→09:39)
[2024-12-09 04:17] VITALS: BP 125/66; PULSE 70; RESP 16; TEMP 36.3; O2SAT 95
[2024-12-09] MEDS: Pantoprazole 40 MG TABCR PO (05:53)
--- NOTE | 2024-12-09 07:19 | W.PM.PROGNOT ---
Date of Service Date of service: 12/09/24 Time of Service: 07:19 Assessment and Plan Assessment and plan (1) Closed fracture of neck of right femur: Status: Acute Assessment and plan: Swathi is doing well this morning status post screw fixation of a right femoral neck fracture. Continue weightbearing as tolerated with assistive device. KARLI Martinez. Plan for discharge to home today. I did review postoperative instructions which include weightbearing as tolerated, however, she should limit some of her weightbearing based on pain. She also should limit stair climbing, lifting, and squatting to allow the hip to heal. She may return to work as she feels she can. Follow-up in 4 weeks. Discharge instructions updated (2) Osteoporosis: Status: Chronic Assessment and plan: Plan for zoledronic acid prior to discharge. Recommend at least 1000 international units of vitamin D and 1200 mg calcium on a daily basis for known osteoporosis with fragility fractures. Subjective Subjective Interval history since last seen: Swathi reports to be doing well. She has been able to ambulate with nursing. She finds that the pain with weightbearing is less now than it was before surgery. No other acute issues. Exam Narrative Exam Narrative: Resting in the bed. No acute distress. Alert and orient x 3. Evaluation of the right lower extremity shows dressing which is clean dry and intact. She is able tolerate hip flexion, internal rotation, external rotation minimal pain. No significant swelling or ecchymosis. Objective Last Vital Signs Temp 36.3 C L 12/09/24 04:17 Pulse 70 12/09/24 04:17 Resp 16 12/09/24 04:17 BP 125/66 12/09/24 04:17 Pulse Ox 95 12/09/24 04:17 Laboratory Results - last 24 hr 12/08/24 12/08/24 12/08/24 06:05 09:58 Unknown Albumin 3.3 L 25-OH Vitamin D Total 24 L Add-On Test Request DONE Cancelled Time Spent with Patient Time Spent with Patient: <25 minutes Time was spent: preparing to see the patient(eg.review tests), obtaining and/or reviewing separately otained hiistory, indepentently interpreting results and counseling the patient
[2024-12-09] MEDS: Ascorbic Acid 500 MG TAB 250 MG PO (07:51)
[2024-12-09] MEDS: Escitalopram 10 MG TAB PO (07:51)
[2024-12-09] MEDS: Zinc Sulfate 220 MG TAB PO (07:51)
[2024-12-09] MEDS: Calcium Carbonate 1.5 GM TAB 3 GM PO (07:51)
[2024-12-09] MEDS: Magnesium Oxide 400 MG TAB PO (07:51)
[2024-12-09] MEDS: Lactobacillus Acidophilus CAP 1 CAP PO (07:51)
[2024-12-09] MEDS: Cholecalciferol (Vitamin D3) 1,000 UNIT TAB 1000 UNITS PO (07:52)
[2024-12-09 07:56] VITALS: BP 127/67; PULSE 83; TEMP 36.5; O2SAT 99
[2024-12-09] MEDS: Acetaminophen 325 MG TAB 650 MG PO (09:44)
--- NOTE | 2024-12-09 10:10 | IN_ITS ---
PT Notes Visit Reasons: Right Femoral Neck Fracture Physical Therapy Inpatient Initial Evaluation Date: 12/09/2024 Referring Doctor: Dr. Reeves PT Orders: PT CONSULT: Status post Ortho surgery Precautions: Weightbearing as tolerated right lower extremity, limit lifting, squatting and stairs Patient Profile/Admitting Diagnosis: Swathi is a 74-year-old female presented status post right femoral neck fracture requiring screw fixation by Dr. Reeves on 12/08/2024. Postop uncomplicated PMHX: [] GERD (gastroesophageal reflux disease) (Chronic) Hypertension (Chronic) Closed fracture of neck of right femur (Acute) Fall (Acute) Abrasion of knee, right (Acute) Contusion of hip, right (Acute) Skull mass (Acute) Fracture of femoral neck, left (Acute 08/13/24) Cervical spinal stenosis (Acute) Fall (Acute) Sinus disease (Acute) Hemiplegic migraine (Acute) Babinski sign positive in left foot (Acute) Balance disorder (Acute) Medical History Kidney stones Sprain of right wrist Leg weakness, bilateral Abnormal mammography Nausea and vomiting Cough Osteoporosis Proximal muscle weakness Back pain Gastroenteritis Upper respiratory infection Depressive disorder Vitamin D deficiency Menopause present Cramps of lower extremity Low back pain Female stress incontinence Colitis GERD with esophagitis Essential hypertension Migraine without aura Migraine with aura Primary insomnia Hyperlipidemia Surgical History History of tonsillectomy and adenoidectomy H/O esophagogastroduodenoscopy S/P hysterectomy S/P cholecystectomy Social History/Home Situation: Patient resides in home with one-step to enter. 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 Patient has been ambulating with 4 wheeled walker at work after recent left hip fracture. She is independent with ambulation ADLs meal preparation. Equipment Owned/DME: Four-wheel walker, FWW Subjective: Patient states she just was discharged from outpatient PT status pos t left hip fracture. She states she will be returning to work on Saturday. Objective: [] General Observation: Female supine in bed watching television IV infusing right upper extremity Mental Status: [] Alert and oriented x 4, cooperative, able to follow instructions, agreeable to participate Pain: Right hip 2/10 after medication ROM: [] Right Upper Extremity: WNL Left Upper Extremity: WNL Right Lower Extremity: Hip flexion 100 degrees, internal rotation 5 degrees abduction 20 degrees, knee and ankle within normal limits Left Lower Extremity: Within functional limits Strength: [] Right Upper Extremity: 5/5 Left Upper Extremity: 5/5 Right Lower Extremity: Hip 3/5, knee 3/5 ankle 4/5 Left Lower Extremity: Grossly 4/5 Sensation: Intact Bed Mobility/Transfers: [] Supine to sit independent Sit to stand independent Stand to sit independent Bed to chair modified independent with FWW Gait: Modified independent with FWW 300 feet including turns obstacle management, reciprocal pattern Stairs: 1 platform step with FWW standby assist Balance: [] Static Sitting: Normal Dynamic Sitting: Normal Static Standing: Normal Dynamic Standing: Good Special Tests: [] Mobility Limitations Standardized Measure [] [facility] 6 clicks Basic Mobility Inpatient Short Form: [] Raw Score: 24 CMS Score: 0% deficit Informed Consent/Education: Patient instructed in purpose of PT consult. Packet containing hip exercise protocol has been given to patient. Education and training on initial set of exercises that can be done at home have been completed with patient. Exercises - Gluteal Sets - 1 x daily - 7 x weekly - 1 sets - 10 reps - 5 hold - Supine Heel Slide - 1 x daily - 7 x weekly - 1 sets - 10 reps - 5 hold - Supine Ankle Pumps - 1 x daily - 7 x weekly - 1 sets - 10 reps - 5 hold - Seated March - 1 x daily - 7 x weekly - 1 sets - 10 reps - 5 hold - Seated Long Arc Quad - 1 x daily - 7 x weekly - 1 sets - 10 reps - 5 hold Assessment: Swathi is a 74-year-old female presenting status post right femoral neck fracture surgical repair. She is independent with use of FWW within the room and on unit. Patient is safe and appropriate for discharge to home when medically appropriate Patient presents with clinical signs and symptoms consistent with current/admitting diagnoses that have resulted to mobility limitations, gait instability, generalized weakness, and impairment of motor control as demonstrated by the following impairment level findings: 1. Decreased strength to right LE major muscle groups 2. Impaired standing dynamic balance 3. Limitation of joint range of motion in right hip 4. Pain right hip 5. Impaired functional activity tolerance Impairments are contributing to the following functional limitations: 1. Inability to safely ambulate without assistive device 2. Increase completion time for mobility ADL performance 3. Increased fall risk Patient is assessed as a low complexity based on the following: History: 74-year-old female with impairment level findings, functional limitations, and past medical history as indicated above Examination: Demonstrable impairment in strength, balance, and mobility level with underlying impairments and functional limitations as documented above Presentation: Stable Decision Making: Low Goals: N/A. PT evaluation and 1-2 treatment sessions only for functional mobility training using recommended AD and for HEP instruction. Plan of Care/Treatment Plan: N/A. PT evaluation and 1-2 treatment session only for functional mobility training using recommended AD and for HEP instruction. DISCHARGE RECOMMENDATIONS:Home with use of FWW no home services indicated . Pt may benefit from Outpatient PT after Ortho f/u in 4 weeks TREATMENT CODE/TIME: 39991/ [id number] Thank you for the opportunity to participate in the care of this patient. Nova Angel, PT [facility]
--- NOTE | 2024-12-09 11:01 | W.PM.DS.N ---
Date of service: 12/09/24 Time of Service: 11:01 DS: Diagnosis Discharge Diagnosis (1) Closed fracture of neck of right femur: Status: Acute (2) Osteoporosis: Status: Chronic Discharge Plan Disposition Patient Disposition: Home Condition: Good Discharge Details Reason For Visit: Right Femoral Neck Fracture Admit Date/Time: 12/07/24 12:49 Admit Provider: Jadon Hyman Attending Provider: Jadon Hyman Primary Care Provider: Andres Basurto Hospital Course Hospital Course: Patient initially presented emergency department was found to have closed right femoral neck fracture for which she had fixation on the. 11/08/2024. Within a few hours postoperatively the patient was able to ambulate without difficulty. She was seen by physical therapy on morning of 12/09/2024 and was determined to be stable for discharge home without any additional services. Additionally, given the patient had a fractured contralateral hip she qualified for zoledronic acid which was given prior to discharge. She will also be discharged home with p.o. calcium and vitamin D. Home Meds and New Rx's Prescriptions: New calcium carbonate 600 mg calcium (1,500 mg) Tablet 3,000 mg PO BID Qty: 120 0RF cholecalciferol (vitamin D3) 25 mcg (1,000 unit) Tablet 1,000 unit PO DAILY Qty: 90 0RF Continued Probiotic 3 billion cell capsule 3,000 mmu cells PO DAILY Rx Instructions: administer with a meal ibuprofen 200 mg tablet 200 mg PO Q6H PRN acetaminophen 500 mg capsule 500 mg PO Q6H PRN ascorbic acid (vitamin C) 250 mg tablet 250 mg PO DAILY atorvastatin 40 mg tablet 40 mg PO DAILY magnesium oxide 500 mg capsule 500 mg PO DAILY pantoprazole 40 mg tablet,delayed release (DR/EC) 40 mg PO DAILY zinc glycinate 20 mg capsule 20 mg PO DAILY aspirin 81 mg tablet 81 mg PO BID Qty: 60 0RF escitalopram oxalate 10 mg tablet 10 mg PO DAILY Discharge Instructions Additional Instructions: Hip Discharge Instructions Activity: You may walk without restriction, but you should use the walker initially until you are able to walk without any significant pain. You should try to take short walks a few times a day. You have no restrictions on movement or positioning, but do not try to force what you do. You will find some stiffness and weakness with hip flexion (lifting your knee). Do not try to strengthen this too early, continue to practice walking and stairs and this will come. I would recommend avoiding squatting and lifting for the first 2 weeks at a minimum. Dressing: Keep the surgical dressing in place for at least one week. After the first week it may be removed and replace with light gauze and tape or nothing. It may get wet after 3 days but avoid soaking the dressing. If it gets wet, just lightly pat dry. Medications: - As instructed by the medicine team - Given your osteoporosis and fragility fractures, you should be taking vitamin D and calcium on a daily basis unless instructed otherwise Follow-up: 4 weeks If you have any acute concerns or questions, please do not hesitate to contact the office at [phone]. You may contact Dr. Reeves with any questions after hours through the hospital at [phone] or on his cell phone at [phone]. Activity:: Activity as Tolerated Equipment/Supplies:: No Equipment Needed Diet:: As Tolerated Discharge Orders Discharge Orders: Discharge Order (Routine); Ordered 12/09/24 Ordered By: Jadon Hyman DS: Summary Time Spent with Patient providing and/or coordinating discharge services: Greater than 30 minutes Status at Discharge Functional status at discharge: independent ambulation Overall status at discharge: patient is back to baseline Mental Status: mental status grossly normal Speech and Movement: speech and movement normal Mood: congruent mood Affect: normal affect Exam Narrative Exam Narrative: Well-appearing older female laying in bed in no acute distress, ANO x 4, heart regular rhythm, lungs to auscultation bilaterally, abdomen soft, nontender, nondistended, right surgical bandage in place without surrounding erythema or drainage Psych Mental Status: mental status grossly normal Speech and Movement: speech and movement normal Mood: congruent mood Affect: normal affect DS: Data Vitals/I&O Vitals and I&O: Vital Signs Temperature 97.7 F 12/09/24 07:56 Temperature Source Temporal Artery Scan 12/09/24 07:56 Pulse 83 12/09/24 07:56 Pulse Rhythm Regular 12/07/24 14:44 Pulse 72 12/08/24 16:00 Respiratory Rate 16 12/09/24 04:17 Respiratory Effort Normal 12/07/24 14:44 Respiratory Depth Normal 12/07/24 14:44 Respiratory Pattern Normal 12/07/24 14:44 Blood Pressure 127/67 12/09/24 07:56 Blood Pressure Mean 87 12/09/24 07:56 Blood Pressure Position Sitting 12/07/24 10:11 Pulse Oximetry 99 12/09/24 07:56 Respiratory End-tidal CO2 32 12/08/24 16:00 Oxygen Delivery Method Room Air 12/09/24 07:56 Oxygen Flow Rate 0 12/09/24 07:56 Pain Level 5 12/09/24 09:44 Comment pt down for surgery 12/08/24 15:25 Intake & Output 12/08/24 12/09/24 12/09/24 17:59 05:59 17:59 Intake Total 1745.833 / 9199.178 5837 / 2745.833 630 / 630 Output Total 650 / 650 4500 / 5150 450 / 450 Balance 1095.833 / 1095.833 -3500 / -2404.167 180 / 180 Weight 145 lb Intake: IV 1745.833 / 1745.833 100 / 1845.833 50 / 50 Oral 900 / 900 580 / 580 Output: Urine 650 / 650 4500 / 5150 450 / 450 Other: Urine Color Yellow Yellow Yellow Urine Appearance Clear Clear Clear Cloudy Comment there is no order to remove ibarra Emesis Description None PFSH All Active Problems (Updated 12/09/24 @ 07:23 by Carmine Reeves MD) Osteoporosis (Chronic) GERD (gastroesophageal reflux disease) (Chronic) Hypertension (Chronic) Closed fracture of neck of right femur (Acute) s/p Screw Fixation (12/08/24) Fall (Acute) Abrasion of knee, right (Acute) Contusion of hip, right (Acute) Skull mass (Acute) Fracture of femoral neck, left (Acute 08/13/24) s/p Screw Fixation (12/08/24) Cervical spinal stenosis (Acute) Fall (Acute) Sinus disease (Acute) Hemiplegic migraine (Acute) Babinski sign positive in left foot (Acute) Balance disorder (Acute) Medical History Kidney stones Sprain of right wrist Leg weakness, bilateral Abnormal mammography Nausea and vomiting Cough Osteoporosis Proximal muscle weakness Back pain Gastroenteritis Upper respiratory infection Depressive disorder Vitamin D deficiency Menopause present Cramps of lower extremity Low back pain Female stress incontinence Colitis GERD with esophagitis Essential hypertension Migraine without aura Migraine with aura Primary insomnia Hyperlipidemia Surgical History History of tonsillectomy and adenoidectomy H/O esophagogastroduodenoscopy S/P hysterectomy S/P cholecystectomy Family History Father Diabetes Heart disease Mother Heart disease Sister Heart disease Arthritis Brother Heart disease Social History Smoking/Tobacco Use Status: Never Smoking risk assessment performed?: Yes Alcohol Intake: never Drug use: Never Substance use type: does not use Household members: none Housing: apartment Number of Children: 2 current occupation: Childcare provider What is your relationship status?: Panel score (0-1 are the most socially isolated patients): 0 Time Spent with Patient Time Spent with Patient: <45 minutes Time was spent: preparing to see the patient(eg.review tests), obtaining and/or reviewing separately otained hiistory, ordering medications,tests, procedures, referring, communicating with other health primary care sales representative, indepentently interpreting results, counseling the patient and care coordination
[2024-12-09 11:35] VITALS: BP 136/72; PULSE 72; RESP 17; TEMP 36.9; O2SAT 97
--- NOTE | 2024-12-09 11:54 | PDOC.CMDIS ---
Date of service: 12/09/24 Time of Service: 11:55 LACE Index Scoring Tool Questions: Length of Stay (in days): 2 Was the patient admitted via the E.D.?: Yes E.D. Visits: 3 Answers: Total Score: 8 Risk of Readmission: Low Risk Care Management Discharge Plan Reason for Hospitalization: right hip fracture s/p screw fixation of right femoral neck Discharge Plan: Swathi will discharge home this afternoon with no new home care services. She will f/u with the orthopedic surgeon and with her PCP and continue per her plan of care. She has no restrictions and will return to work on Thursday 12/14. A return to work letter was given with those instructions. Swathi will transport home in a private vehicle with her son. Swathi feels well supported and is ready to go home. Patient/Family Education Needs: Review of discharge instructions, activity, limitations, and discuss Ask me 3.
== END 2024-12-09 12:19 | disposition home or self-care (01) | DRG 482 ==
LOC: ER 12:31 → MS 13:35
PROVIDERS: Nurse Practitioner Family; Student in an Organized Health Care Education/Training Program; Admitting Provider Family Medicine; Emergency Provider Emergency Medicine; PCP Student in an Organized Health Care Education/Training Program; Responsible Provider Family Medicine; Visit Provider Family Medicine
PROC: 0QH634Z Insertion of Internal Fixation Device into Right Upper Femur, Percutaneous Approach (ICD-10-PCS; CPT 27235; principal; 2024-12-08 15:45)
DX: S72.044A Nondisplaced fracture of base of neck of right femur, initial encounter for closed fracture (principal); I10 Essential (primary) hypertension; K21.9 Gastro-esophageal reflux disease without esophagitis; M81.0 Age-related osteoporosis without current pathological fracture; R53.1 Weakness; G43.409 Hemiplegic migraine, not intractable, without status migrainosus; R26.89 Other abnormalities of gait and mobility; M48.02 Spinal stenosis, cervical region; E55.9 Vitamin D deficiency, unspecified; F32.A Depression, unspecified; W19.XXXA Unspecified fall, initial encounter; E78.5 Hyperlipidemia, unspecified; M16.11 Unilateral primary osteoarthritis, right hip
CPT/HCPCS: 27235; 00123; 73552; 73562; 80048; 82306; 97161; 99223; 99233; 99284; 99285; 72170; 72192; 73501; 82040; 83735; 85025; 99222; 99239; 99283; J0131; J0665; J0666; J0690; J1100; J1171; J1885; J2003; J2371; J2405; J2704; J3010; J3489

== ENCOUNTER 2024-12-22 05:23 | Emergency (ER) | payer MEDICARE, SELFPAY ==
--- NOTE | 2024-12-22 05:30 | DI.RAD_ITS ---
Exam(s) XR HIP RT COMPLETE AP PELVIS EXAM: XR HIP RT COMPLETE AP PELVIS CLINICAL HISTORY: increased pain since hip repair. TECHNIQUE: 2D digital imaging was performed of the right hip. Three images were obtained. AP pelvis and lateral right hip views were obtained. COMPARISON: CR,XR XR PELVIS AP from 12/07/2024 FINDINGS: BONES: There is again seen a fracture at the junction of the femoral neck and the greater trochanter laterally. There has been interval placement of 3 partially threaded screws through the femoral neck. No bony destructive lesion is seen. JOINTS: No dislocation present. Degenerative changes are again seen of the right hip with marked joint space narrowing and acetabular and femoral head osteophytes. There are degenerative changes seen in the lower visualized lumbar spine. The sacroiliac joints and symphysis pubis are unremarkable. SOFT TISSUE: Normal. IMPRESSION: Stable alignment of the fracture at the junction of the femoral neck and greater trochanter. DATA REPOSITORY: RADIATION DOSE DELIVERED:
[2024-12-22 05:31] VITALS: PULSE 89; RESP 16; TEMP 36.1; O2SAT 97
--- NOTE | 2024-12-22 05:36 | W.ED.GENAD ---
Discharge Plan Discharge Details Chief Complaint: Orthopedic Primary Care Provider: Andres Basurto ED Provider: Adelso Reardon Fenton Meds and New Rx's Prescriptions: No Action Probiotic 3 billion cell capsule 3,000 mmu cells PO DAILY Rx Instructions: administer with a meal ibuprofen 200 mg tablet 200 mg PO Q6H PRN acetaminophen 500 mg capsule 500 mg PO Q6H PRN ascorbic acid (vitamin C) 250 mg tablet 250 mg PO DAILY atorvastatin 40 mg tablet 40 mg PO DAILY magnesium oxide 500 mg capsule 500 mg PO DAILY pantoprazole 40 mg tablet,delayed release (DR/EC) 40 mg PO DAILY zinc glycinate 20 mg capsule 20 mg PO DAILY aspirin 81 mg tablet 81 mg PO BID Qty: 60 0RF escitalopram oxalate 10 mg tablet 10 mg PO DAILY tramadol 50 mg tablet 50 mg PO Q6H PRN (Reason: pain) Qty: 20 0RF calcium carbonate 600 mg calcium (1,500 mg) Tablet 3,000 mg PO BID Qty: 120 0RF cholecalciferol (vitamin D3) 25 mcg (1,000 unit) Tablet 1,000 unit PO DAILY Qty: 90 0RF HPI General Mode of arrival: wheelchair. Date/Time Provider Initiated Documentation: 12/22/24 05:28. Limitations to Documentation: no limitations. Information obtained by: patient, RN notes reviewed and old records reviewed. HPI Narrative: Patient presents to the ED with complaint of worsening right hip pain. Patient sustained a fall with hip fracture and repair on the seventh of this month. She reports that she has been having increased pain and increased difficulty ambulating. She did call orthopedics on Saturday and was given a prescription for tramadol. She reports that this does help but the pain continues to be worse. She is having increased difficulty ambulating even with her walker because of the pain. She denies any new falls or injury. She denies fever, skin changes, numbness or weakness. Related Data Home Medications ?Medication ?Instructions ?Recorded ?Confirmed ascorbic acid (vitamin C) 250 mg 250 mg PO DAILY 03/03/24 12/22/24 tablet atorvastatin 40 mg tablet 40 mg PO DAILY 03/03/24 12/22/24 magnesium oxide 500 mg capsule 500 mg PO DAILY 03/03/24 12/22/24 pantoprazole 40 mg tablet,delayed 40 mg PO DAILY 03/03/24 12/22/24 release zinc glycinate 20 mg capsule 20 mg PO DAILY 03/03/24 12/22/24 aspirin 81 mg tablet 81 mg PO BID prevent blood clot 08/14/24 12/22/24 #60 tabs escitalopram oxalate 10 mg tablet 10 mg PO DAILY 08/17/24 12/22/24 lactobacillus combination no.4 3 3,000 mmu cells PO DAILY 08/25/24 12/22/24 billion cell capsule (Probiotic) acetaminophen 500 mg capsule 500 mg PO Q6H PRN 09/10/24 12/22/24 ibuprofen 200 mg tablet 200 mg PO Q6H PRN 09/10/24 12/22/24 calcium carbonate 3,000 mg (5 x 600 mg calcium 12/09/24 12/22/24 (1,500 mg)) PO BID #120 tabs cholecalciferol (vitamin D3) 25 1,000 unit PO DAILY #90 tabs 12/09/24 12/22/24 mcg (1,000 unit) tablet tramadol 50 mg tablet 50 mg PO Q6H PRN pain #20 tabs 12/17/24 12/22/24 Previous Rx's ?Medication ?Instructions ?Recorded aspirin 81 mg tablet 81 mg PO BID prevent blood clot 08/14/24 #60 tabs calcium carbonate 3,000 mg (5 x 600 mg calcium 12/09/24 (1,500 mg)) PO BID #120 tabs cholecalciferol (vitamin D3) 25 1,000 unit PO DAILY #90 tabs 12/09/24 mcg (1,000 unit) tablet tramadol 50 mg tablet 50 mg PO Q6H PRN pain #20 tabs 12/17/24 Allergies Allergy/AdvReac Type Severity Reaction Status Date / Time No Known Allergies Allergy Verified 12/07/24 07:17 General Stated Complaint: Orthopedic SHANIQUA: 3 Exam Narrative Exam Narrative: Const: WDWN elderly female in NAD. VS per triage. HEENT: NC/AT. Normal facial exam. Neck: Supple. Trachea midline. Lungs: Normal respiratory effort. Cor: RRR. Good distal pulses. Neuro: A+O x 3. Normal speech, mentation, gait. Cranial nerves II - XII grossly intact. No gross motor or sensory deficit. Ext: RLE with decent ROM at the hip but with some pain. Incision looks good, some bruising in area. NVI distal. Course Vital Signs Vital signs: Vital Signs Temperature 96.9 F L 12/22/24 05:31 Pulse 89 12/22/24 05:31 Respiratory Rate 16 12/22/24 05:31 Pulse Oximetry 97 12/22/24 05:31 Temperature 96.9 F L 12/22/24 05:31 Pulse 89 12/22/24 05:31 Respiratory Rate 16 12/22/24 05:31 Pulse Oximetry 97 12/22/24 05:31 Oxygen Delivery Method Room Air 12/22/24 05:31 Oxygen Flow Rate 0 12/22/24 05:31 Pain Level 5 12/22/24 05:31 Medical Decision Making Patient presenting to the ED with worsening right hip pain status post repair earlier in the month. Patient is neurovascularly intact. She has decent range of motion but with some pain at the right hip. No injury or trauma. X-rays obtained. No definite fracture seen. Discussed and reviewed with Dr. Reeves who feels there is some concern for failure of the screws. A CT of the right hip is ordered and Dr. Reeves will see in the ED this morning. Medical Records Medical records reviewed: Yes I reviewed the patient's medical records. Imaging Data Radiologic Study: Attestation: I personally reviewed and interpreted this imaging study as follows: Imaging: X-Ray My impression: see [facility] All Active Problems Osteoporosis (Chronic) GERD (gastroesophageal reflux disease) (Chronic) Hypertension (Chronic) Abrasion of knee, right (Acute) Contusion of hip, right (Acute) Skull mass (Acute) Fracture of femoral neck, left (Acute 08/13/24) s/p Screw Fixation (12/08/24) Cervical spinal stenosis (Acute) Fall (Acute) Sinus disease (Acute) Hemiplegic migraine (Acute) Babinski sign positive in left foot (Acute) Balance disorder (Acute) Medical History Kidney stones Sprain of right wrist Leg weakness, bilateral Abnormal mammography Nausea and vomiting Cough Proximal muscle weakness Back pain Gastroenteritis Upper respiratory infection Depressive disorder Vitamin D deficiency Menopause present Cramps of lower extremity Low back pain Female stress incontinence Colitis GERD with esophagitis Essential hypertension Migraine without aura Migraine with aura Primary insomnia Hyperlipidemia Surgical History History of tonsillectomy and adenoidectomy H/O esophagogastroduodenoscopy S/P hysterectomy S/P cholecystectomy Family History Father Diabetes Heart disease Mother Heart disease Sister Heart disease Arthritis Brother Heart disease Social History Smoking/Tobacco Use Status: Never Smoking risk assessment performed?: Yes Alcohol Intake: never Drug use: Never Substance use type: does not use Household members: none Housing: apartment Number of Children: 2 current occupation: Childcare provider What is your relationship status?: Panel score (0-1 are the most socially isolated patients): 0
--- NOTE | 2024-12-22 06:49 | DI.VRAD_ITS ---
PROCEDURE INFORMATION: Exam: XR Right Hip Exam date and time: 12/22/2024 6:05 AM Age: 74 years old Clinical indication: Hip pain; Right hip; Prior surgery; Surgery date: <1 month; Surgery type: R hip surgery 12/06/23, prior L hip surgery; Increased pain since R hip repair TECHNIQUE: Imaging protocol: Radiologic exam of the right hip. Views: 2 or 3 views hip with pelvis when performed. COMPARISON: XA XR HIP RT IN OR 12/08/2024 2:10 PM FINDINGS: Bones/joints: Fracture of the right greater trochanter. Bilateral femoral neck screws. Soft tissues: Unremarkable. IMPRESSION: Fracture of the right greater trochanter. Dictated and Authenticated by: Patricia Crowley MD. Orderin Alexys Darden MD
--- NOTE | 2024-12-22 06:50 | DI.CT_ITS ---
Exam(s) CT LOWER EXTREMITY RT WO EXAM: CT LOWER EXTREMITY RT WO CLINICAL HISTORY: worsening right hip pain s/p repair. TECHNIQUE: Imaging Protocol: Axial computed tomography images with coronal and sagittal reformatted images were created and reviewed. COMPARISON: CR,XR XR FEMUR RT from 12/07/[address] PELVIC WO from 12/07/2024 CR,XR XR PELVIS AP from 12/07/2024 XA XR HIP RT IN OR from 12/08/2024 CR,XR XR HIP RT COMPLETE AP PELVIS from 12/22/2024 FINDINGS: Bones: There is a new fracture which extends through the greater trochanter. The fracture is not displaced. The orthopedic hardware is not extend into the fracture fragment. Bony alignment is satisfactory. No cellulitic or osteomyelitic changes are identified. There are marked degenerative changes seen at the hip characterized by joint space narrowing and acetabular and femoral head osteophytes. No lytic or sclerotic lesions are identified. Soft Tissues: There is a 2 x 1.5 cm cyst on the right ovary. IMPRESSION: 1. There is a new fracture which extends through the base of the greater trochanter without significant displacement. 2. The preliminary [facility] report was reviewed. RADIATION DOSE DELIVERED: 178.28mGy.cm Total DLP 178.28mGy.cm Total DLP DATA REPOSITORY: All CT scans at this facility are submitted to the National Radiology Data Registry (NRDR) Dose Index Registry (DIR) with the [employer] ([employer]). RADIATION OPTIMIZATION: All CT scans at this facility use at least one of these dose optimization techniques: automated exposure control; mA and/or kV adjustment per patient size (includes targeted exams where dose is matched to clinical indication); or iterative reconstruction.
--- NOTE | 2024-12-22 07:01 | DI.[facility]_ITS ---
PROCEDURE INFORMATION: Exam: CT Right Lower Extremity Without Contrast, Hip Exam date and time: 12/22/2024 6:34 AM Age: 74 years old Clinical indication: Pain; Hip; Right; Prior surgery; Surgery date: <1 month TECHNIQUE: Imaging protocol: CT of the right lower extremity without contrast was performed. Exam focused on the hip. Radiation optimization: All CT scans at this facility use at least one of these dose optimization techniques: automated exposure control; mA and/or kV adjustment per patient size (includes targeted exams where dose is matched to clinical indication); or iterative reconstruction. COMPARISON: No relevant prior studies are available for comparison. FINDINGS: Bones/joints: Right femoral screws. Artifact limits evaluation of the surrounding tissues. Fracture of the greater trochanter. Reproductive: 1.7 cm cystic focus in the right ovary. Uterus not visualized. IMPRESSION: Fracture of the right greater trochanter. Dictated and Authenticated by: Patricia Crowley MD. Orderin Alexys Darden MD
[2024-12-22] MEDS: HYDROcodone 5/Acetaminophen 325 TAB PO (07:13)
--- NOTE | 2024-12-22 18:19 | OCONE_ITS ---
Date of service: 12/22/24 Time of Service: 07:20 History of Present Illness History of Present Illness Chief Complaint: Right Hip Pain Narrative: Swathi is a 74-year-old female who is status post percutaneous screw fixation of a nondisplaced or potentially incomplete, hip fracture on the right side. She initially was doing well and returned to work. However, on return to work she started developing increasing pain about the right hip. This pain is increased with weightbearing activities. The pain is located lateral. She presented emergency department due to increasing pain. She denies any significant groin pain. She denies numbness or tingling. Consults Consult date: 12/22/24 Requesting physician: Adelso Reardon Consult Reason Right hip pain after hip fracture surgery Assessment and Plan Assessment and plan (1) Closed fracture of greater trochanter of femur: Status: Acute Assessment and plan: Swathi is a 74-year-old female who is status post percutaneous screw fixation of a nondisplaced femoral neck fracture who had worsening pain. X-rays show what appear to be a fracture through the tip of the greater trochanter. I would pre sume that this may have been a nondisplaced fracture line which has been made worse with her return to school. I do not think this needs any further intervention. However, I would recommend a 4-point gait for at least 6 weeks. This will offload the abductors and allow this to heal. Did encourage her to be more regular with her current medications. All weightbearing to be done with a walker. No active abduction. I will see her back in another 1 to 2 weeks to check on this to make sure it has not moved. (2) Fracture of femoral neck, right: Status: Acute Review of Systems All systems reviewed & are unremarkable except as noted in HPI and below PFSH All Active Problems Fracture of femoral neck, right (Acute) s/p screw fixation DOS: 12/08/24 Closed fracture of greater trochanter of femur (Acute) Osteoporosis (Chronic) GERD (gastroesophageal reflux disease) (Chronic) Hypertension (Chronic) Abrasion of knee, right (Acute) Contusion of hip, right (Acute) Skull mass (Acute) Fracture of femoral neck, left (Acute 08/13/24) s/p Screw Fixation (08/13/24) Cervical spinal stenosis (Acute) Fall (Acute) Sinus disease (Acute) Hemiplegic migraine (Acute) Babinski sign positive in left foot (Acute) Balance disorder (Acute) Medical History Kidney stones Sprain of right wrist Leg weakness, bilateral Abnormal mammography Nausea and vomiting Cough Proximal muscle weakness Back pain Gastroenteritis Upper respiratory infection Depressive disorder Vitamin D deficiency Menopause present Cramps of lower extremity Low back pain Female stress incontinence Colitis GERD with esophagitis Essential hypertension Migraine without aura Migraine with aura Primary insomnia Hyperlipidemia Surgical History History of tonsillectomy and adenoidectomy H/O esophagogastroduodenoscopy S/P hysterectomy S/P cholecystectomy Family History Father Diabetes Heart disease Mother Heart disease Sister Heart disease Arthritis Brother Heart disease Social History Smoking/Tobacco Use Status: Never Smoking risk assessment performed?: Yes Alcohol Intake: never Drug use: Never Substance use type: does not use Household members: none Housing: apartment Number of Children: 2 current occupation: Childcare provider What is your relationship status?: Panel score (0-1 are the most socially isolated patients): 0 Exam Narrative Exam Narrative: Resting in the supine position in the hospital bed. No significant pain with hip internal and external rotation. Exquisite pain to palpation of the greater trochanter. She is able to actively flex and extend the hip in the bed without significant limitation or pain. Sensation intact light touch over the femoral side and nerve distributions. Intact ankle dorsiflexion, plantarflexion, great toe extension, great toe flexion. Results Last Vital Signs Temp 36.1 C L 12/22/24 05:31 Pulse 89 12/22/24 05:31 Resp 16 12/22/24 05:31 Pulse Ox 97 12/22/24 05:31 Imaging Imaging Studies: X-ray of the right hip shows what appears to be a fracture through the lateral aspect of the femoral neck and into the greater trochanter. There is no displa cement. There is no new extension of the fracture across the femoral neck or into the femoral shaft.
== END 2024-12-22 08:30 | disposition home or self-care (01) ==
PROVIDERS: Emergency Provider Emergency Medicine; PCP Student in an Organized Health Care Education/Training Program
DX: M97.01XA Periprosthetic fracture around internal prosthetic right hip joint, initial encounter (principal)
CPT/HCPCS: 99284 ×2; 73502; 73700

== ENCOUNTER 2024-12-28 15:47 | Outpatient (CLI) | payer MEDICARE, SELFPAY ==
--- NOTE | 2024-12-28 15:15 | DI.RAD_ITS ---
Exam(s) XR HIP RT COMPLETE AP PELVIS EXAM: XR HIP RT COMPLETE AP PELVIS CLINICAL HISTORY: right hip fracture. TECHNIQUE: 2D digital imaging was performed. COMPARISON: CR,XR XR HIP RT COMPLETE AP PELVIS from 12/22/2024 FINDINGS: Two views: There are 3 screws in both femoral necks again noted. These appear stable in position. In the right hip the previously described fracture in the lateral aspect of the greater trochanter is again noted, appearing unchanged. No displacement. No new fractures evident. No evidence of osteomyelitis. Moderate degenerative changes are noted in the right hip. IMPRESSION: Humeral appearance of right hip fracture site. DATA REPOSITORY: RADIATION DOSE DELIVERED:
== END 2024-12-28 15:48 | disposition home or self-care (01) ==
LOC: DIORS 15:47
PROVIDERS: PCP Student in an Organized Health Care Education/Training Program; Referring Provider Student in an Organized Health Care Education/Training Program; Visit Provider Physician Assistant
DX: S72.001D Fracture of unspecified part of neck of right femur, subsequent encounter for closed fracture with routine healing (principal); S72.111D Displaced fracture of greater trochanter of right femur, subsequent encounter for closed fracture with routine healing; X58.XXXD Exposure to other specified factors, subsequent encounter
CPT/HCPCS: 99024; 73502

== ENCOUNTER 2025-01-18 16:07 | Outpatient (CLI) | payer MEDICARE, SELFPAY ==
--- NOTE | 2025-01-18 14:45 | DI.RAD_ITS ---
Exam(s) XR HIP RT AP LAT ONLY EXAM: XR HIP RT AP LAT ONLY INDICATION: S/P IM NAIL R HIP FX. COMPARISON: CR,XR XR FEMUR RT from 12/07/2024 CR,XR XR PELVIS AP from 12/07/2024 CR,XR XR HIP RT COMPLETE AP PELVIS from 12/22/2024 CR XR HIP RT COMPLETE AP PELVIS from 12/28/2024 TECHNIQUE: 2D digital imaging was performed. Two views. FINDINGS: Three screws are again noted in the proximal right femur. There fracture of the greater trochanter remains visible and is unchanged in alignment. DATA REPOSITORY: RADIATION DOSE DELIVERED:
== END 2025-01-18 16:08 | disposition home or self-care (01) ==
LOC: DIORS 16:07
PROVIDERS: PCP Student in an Organized Health Care Education/Training Program; Referring Provider Student in an Organized Health Care Education/Training Program; Visit Provider Physician Assistant
DX: S72.001D Fracture of unspecified part of neck of right femur, subsequent encounter for closed fracture with routine healing (principal); S72.111D Displaced fracture of greater trochanter of right femur, subsequent encounter for closed fracture with routine healing; X58.XXXD Exposure to other specified factors, subsequent encounter
CPT/HCPCS: 99213; 73502